=== PATIENT | male | born 1950 | race Caucasian/White ===

== ENCOUNTER 2020-07-22 20:37 | Inpatient (IN) | payer OTHER ==
[2020-07-22] MEDS ORDERED: Meropenem 1000 MG/VIAL IV SCH (21:00)
[2020-07-22 21:33] VITALS: BMI 25.2
[2020-07-22] MEDS ORDERED: Meropenem 1 GM/100 ML BAG ONE (22:29)
[2020-07-22 22:39] LABS: Absolute Lymphocytes (CBC) 1.7 K/uL (0.7-4.9); Basophils % 0.2 % (0-1.3); Hematocrit 44.6 % (39.6-49.0); Lymphocytes % 6.7 % (15.3-44.8); MPV 8.9 fL (7.6-11.3); RBC Red Blood Cell Count 5.17 M/uL (4.33-5.43)
[2020-07-22 22:41] LABS: Magnesium 2.7 mg/dL (1.8-2.4)
[2020-07-23 00:15] LABS: Urine Appearance TURBID; Urine Bilirubin NEGATIVE (NEG); Urine Blood 2+ (NEG); Urine Color RED; Urine Glucose NEGATIVE (NEG); Urine Protein 3+ (NEG); Urine Urobilinogen 0.2 mg/dL (0.2-1.0)
[2020-07-23 00:34] LABS: Blood Morphology Comment NOT SEEN (NOT SEEN); Platelet Estimate ADEQ
[2020-07-23 01:06] LABS: Urine Bacteria >50 /HPF (NONE SEEN); Urine Triple Phosphate Crystal FEW (NONE SEEN)
[2020-07-23] MEDS ORDERED: NA CHLORIDE 0.9% 1,000 ML IV SCH (08:00)
[2020-07-23] MEDS ORDERED: INFLUENZA VACCINE (for 3y+) 0.5 ML DOSE IMVAC ONE (08:00)
[2020-07-23] MEDS ORDERED: PNEUMOCOCCAL VACCINE 0.5 ML IMVAC ONE (08:00)
[2020-07-23] MEDS: FOLIC ACID 0.4 MG PO SCH (09:00)
[2020-07-23] MEDS ORDERED: AMLODIPINE 2.5 MG TAB PO SCH (09:00)
[2020-07-23] MEDS: SAW PALMETTO 450 MG PO SCH (09:00)
[2020-07-23] MEDS: GABAPENTIN 100 MG CAP PO SCH ×2 (09:25→21:24)
[2020-07-23] MEDS: ZINC SULFATE 220 MG CAP PO SCH (09:26)
[2020-07-23] MEDS: VITAMIN D 1000 UNIT TAB PO SCH (09:26)
[2020-07-23] MEDS: ASCORBIC ACID 500 MG TABLET PO SCH (09:26)
[2020-07-23] MEDS: ENOXAPARIN 40 MG/0.4 ML SQ SCH (09:26)
[2020-07-23] MEDS: ASPIRIN 81 MG CHEWABLE TABLET PO SCH (09:26)
[2020-07-23] MEDS: SERTRALINE HCL 100 MG TAB PO SCH (09:26)
[2020-07-23] MEDS: Meropenem 1,000 MG in NA CHLORIDE 0.9% 100 ML IV SCH ×2 (09:27→21:25)
--- NOTE | 2020-07-23 09:27 | RAD REPORT ---
EXAM DESCRIPTION: US - Renal Ultrasound-Complete - 07/23/2020 9:01 am CLINICAL HISTORY: Abdominal pain/urinary tract infection COMPARISON: None. FINDINGS: The right kidney measures 9 cm with a normal echotexture. Extrarenal pelvis The left kidney measures 9 cm with a normal echotexture. A 2.9 centimeter cyst Hydronephrosis is not seen. IMPRESSION: 2.9 centimeter left renal cyst
--- NOTE | 2020-07-23 09:30 | RAD REPORT ---
EXAM DESCRIPTION: US - Urinary Bladder - 07/23/2020 9:01 am CLINICAL HISTORY: R10.84 abdominal pain FINDINGS: 2.8 centimeter soft tissue structure base of the bladder. No additional significant abnormality seen IMPRESSION: 2.8 centimeter soft tissue structure base of the bladder. This may represent an intrinsi c bladder mass, hematoma or prostatic hypertrophy. It is recommended that patient have a CT scan of t he pelvis for further evaluation
[2020-07-23] MEDS: NA CHLORIDE 0.9% 1,000 ML IV SCH ×2 (10:30→21:25)
--- NOTE | 2020-07-23 12:46 | HP ---
Date of Admission: 07/23/2020 Chief Complaint: Urinary tract infection. History Of Present Illness: This is a 70-year-old pleasant male patient who has history of recurrent urinary tract infection for a long time. Had his routine blood work done and at that time, he also requested urine test to be done as he was having some signs, symptoms of urinary tract infection with some burning sensation on urination and this was last week. All this outpatient testing was done and he was started on antibiotic, nitrofurantoin over the weekend. When I talked to him yesterday, he reported that he was feeling better for first day or 2 days, but after that, he started to feel worse. Now, he is feeling very tired, does not have good appetite, has generalized body ache and has trouble voiding along with some burning sensation on urination. With all these symptoms, he was advised to get admitted to the hospital. His outpatient blood work that was done few days ago had shown normal WBC count, normal creatinine. His CBC chemistry was unremarkable except his urinalysis was abnormal and consistent with urinary tract infection and urine culture had grown E coli which was ESBL and it was sensitive to nitrofurantoin, but considering his worsening symptoms, now he is admitted to the hospital. The patient will need IV antibiotics. All these details were discussed with him on the phone last night and arrangements were made for him to be admitted. This morning, I saw him. He appeared weak and tired, and some altered mental status, had his eyes closed. He opened his eyes, recognized me and does answer simple questions, does follow simple commands. Allergies: NO KNOWN ALLERGIES. Medications: At home, he takes atorvastatin 10 mg daily in the evening; amlodipine 2.5 mg daily; aspirin 81 mg daily; gabapentin 100 mg, takes 2 capsules 2 times a day; lisinopril/HCTZ 12.5, takes 1 tablet 2 times a day if systolic blood pressure is higher than 140 and sertraline 100 mg daily. Review of Systems: Genitourinary: As mentioned above. Constitutional: As mentioned above. All other systems reviewed and negative. Past Medical History: Significant for impaired fasting glucose, COPD, hypertension, hyperlipidemia, benign prostatic hypertrophy, osteoarthritis, depression, and inguinal hernia. Past Surgical History: Significant for arthroscopic knee surgery. Family History: Significant for father had COPD, coronary artery disease, [place]. Mother had ovarian cancer. Social History: Significant for smoking. Use of alcohol occasional. Physical Examination: Vital signs: This morning, temperature 97.3, pulse 101, respiratory rate 18, blood pressure 123/66, oxygen saturation 95%. Height 5 feet 9 inches, weight 171 pounds. General: The patient appears weaker than normal. Sleeping, easily arousable, not in any distress, but appears to have altered mental status. HEENT: Head atraumatic, normocephalic. Conjunctivae nonerythematous. Sclerae white. Mouth, no thrush or edema noted. Ears/Nose, no mass, lesion, discharge noted. Neck: Supple. No JVD, lymph nodes, bruit, thyromegaly noted. Lungs: Bilateral good equal air entry. Clear to auscultation. No rhonchi. No rales. Heart: Normal heart sounds, no murmur or gallop. Abdomen: Minimal right-sided abdominal tenderness. No rebound tenderness. Bowel sounds normoactive. No hepatosplenomegaly. No bruit. No distention. Extremities: No leg edema. No calf tenderness. Skin: No rash, ulcer, cellulitis. Lymphatics: No lymph node enlargement in neck, supraclavicular, infraclavicular region. Neuro: No focal neurological deficit. Chest: Unremarkable. External Genitalia: Shows very large inguinal hernia on the left side and due to this large hernia, we are not able to see his penile shaft and all we see is the prepucial skin and when I was in the room with the patient, first time, he wanted to get up and urinate, so the patient required assistance to get out of bed and stand up. He was not strong enough to stand on his own or walk to the bathroom and nurse and myself, we assisted him to use bedside urinal and at that time, we noted that he had very small amount of urine that he urinated, probably between 10-20 cc and it was hemorrhagic looking and had some purulent discharge at prepucial skin. The patient was assisted to get back in the bed after that. Rectal: Deferred. Laboratory Data: White count last night was 25.9, hemoglobin 14.6, platelets 375. He had 8 bands. Sodium 134, potassium 5, chloride 102, bicarb 20, BUN 57, creatinine 1.36, glucose 139, magnesium 2.7. Urinalysis showed 3+ esterase, wbc's TNTC, bacteria more than 50, rbc's 10-20. Ultrasound of the kidney and bladder done today. Kidney ultrasound, unremarkable. No hydronephrosis. A 2.3 cm left renal cyst and bladder ultrasound showed a small density in the base of the bladder which could be either bladder mass or due to enlarged prostate or blood in the bladder and we will do CAT scan tomorrow for further evaluation. Impression: 1. Acute pyelonephritis. 2. Volume depletion. 3. Acute kidney injury. 4. Toxic encephalopathy. 5. Benign prostatic hypertrophy with urinary retention. 6. Hypertension. 7. Hyperlipidemia. 8. Chronic obstructive pulmonary disease. 9. Impaired fasting glucose. 10. Inguinal hernia. 11. Osteoarthritis, multiple sites. 12. Depression. Plan: Admit the patient to hospital for further evaluation and management of this problem. The patient is appropriate for inpatient and is expected to spend 2 midnights in the hospital. We will continue IV meropenem. We will also continue IV fluid which was started and home medications will be continued per order. DVT prophylaxis will be given per order using Lovenox. The patient's bladder scan done today shows 479 cc of urine, so he is unfortunately retaining significant amount of urine and we will go ahead and place a Smith catheter and I did inform the patient prior to doing bladder scan that we may have to place a catheter and he understood and was agreeable to do so if necessary. Fall precaution was ordered. We will repeat blood work tomorrow and hopefully by tomorrow, we should see some improvement in his overall clinical condition and we will order CT scan after we look at his renal function tomorrow. Blood culture was ordered. We will follow up on that. Details were discussed with the patient's daughter. LEAH/MODL Voice ID: [id number]
[2020-07-23 14:46] LABS: Potassium 5.4 mmol/L (3.5-5.1)
[2020-07-23 14:47] LABS: Basophils % 0.2 % (0-1.3); Hematocrit 42.6 % (39.6-49.0); Lymphocytes % 3.2 % (15.3-44.8); MPV 8.9 fL (7.6-11.3); RBC Red Blood Cell Count 4.93 M/uL (4.33-5.43)
[2020-07-23] MEDS ORDERED: NA CHLORIDE 0.9% 500 ML IV ONE ×2 (15:20→17:39)
[2020-07-23] MEDS: ALBUTEROL 2.5 MG/3 ML NEB SOL NEB SCH ×2 (15:23→19:35)
[2020-07-23] MEDS ORDERED: SODIUM BICARB 50 MEQ/50ML VIAL IV ONE (16:00)
--- NOTE | 2020-07-23 16:45 | RAD REPORT ---
EXAM DESCRIPTION: RAD - Chest Single View - 07/23/2020 4:31 pm CLINICAL HISTORY: COPD Chest pain. COMPARISON: Chest Pa And Lat (2 Views) dated 11/28/2016; Chest Pa And Lat (2 Views) dated 11/27/2016; Ch est Single View dated 11/26/2016; Urinary Bladder dated 07/23/2020 FINDINGS: Portable technique limits examination quality. The lungs are mildly emphysematous but grossly clear. The heart is normal in size. No displaced fract ures. IMPRESSION: Mild COPD.
[2020-07-23] MEDS ORDERED: Levofloxacin 250mg IV 250 MG/50 ML BAG IV SCH (17:00)
--- NOTE | 2020-07-23 18:25 | RAD REPORT ---
EXAM DESCRIPTION: CT - Abdomen Pelvis Wo Contrast - 07/23/2020 6:16 pm CLINICAL HISTORY: Abdominal pain. Inguinal hernia COMPARISON: No comparisons TECHNIQUE: CT imaging of the abdomen and pelvis was performed without contrast. Solid organ and vasc ular assessment is limited due to lack of IV contrast. All CT scans are performed using dose optimization technique as appropriate and may include automated exposure control or mA/KV adjustment according to patient size. FINDINGS: The lower lung correa are clear. The liver, spleen, pancreas, adrenal glands are within normal limits for a limited non-contrast exami nation.The left kidney appears normal without hydronephrosis. Mild right-sided hydronephrosis is present. 12 mm exophytic cyst emanates from the lateral cortex of right kidney. No bowel obstruction, free air, free fluid or abscess. The appendix is normal. There is very severe thickening of the urinary bladder wall with moderate surrounding inflammation. S everal small bladder stones are present as well, largest measuring 10 mm. Extremely large left fat containing inguinal hernias present extending into the scrotum. Small right inguinal hernia also containing seen. IMPRESSION: Quite severe wall thickening and surrounding inflammation of the urinary bladder with se veral bladder stones present. Severe infection would be the most likely etiology for these findings. Extremely large fat containing left inguinal hernia extending into the scrotum. Small right inguinal hernia containing fat as well. Mild right hydronephrosis. A limited non-contrast examination was performed as detailed.
[2020-07-23 19:45] LABS: Blood Morphology Comment NOT SEEN (NOT SEEN); Platelet Estimate ADEQ; Platelets, Giant OCC
[2020-07-23 20:30] LABS: Absolute Lymphocytes (CBC) 1.9 K/uL (0.7-4.9); Basophils % 0.2 % (0-1.3); Hematocrit 38.3 % (39.6-49.0); Lymphocytes % 7.8 % (15.3-44.8); MPV 8.7 fL (7.6-11.3); RBC Red Blood Cell Count 4.43 M/uL (4.33-5.43)
[2020-07-23 20:35] LABS: Potassium 4.5 mmol/L (3.5-5.1)
[2020-07-23] MEDS ORDERED: METOPROLOL TAR 25 MG TAB PO SCH (21:00)
--- NOTE | 2020-07-23 21:02 | CON ---
Reason For Consultation: Inability to pass a Smith catheter and urinary retention suspected. History Of Present Illness: Mr. Everett presented and was admitted yesterday with signs of suspected se sonia infection versus sepsis. While his lactic acid level was not markedly elevated, the patient has had some lethargy and potential altered mental status associated. He was managed with relatively ag gressive fluid resuscitation yet his intake and his outputs were markedly disparate. As a result, th ere was a recommendation for a urethral Smith catheter to be placed and nursing was unable to pass th e catheter successfully. They noted market enlargement of his scrotum obscuring visualization of the glans along with some pustular discharge around the retracted glans. As a result, Urology was consu lted in a stat fashion and I presented to evaluate the patient. On examination, the patient was lyin g on his side and is significantly lethargic, but arousable with significant stimulation. He was lulu ewhat cooperative, but unable to maintain that state. While his abdomen was soft and he expressed no signs of tenderness, he did have a large left inguinal mass extending into the scrotum causing significant scrotal swelling with some mild duskiness presen t anteriorly and over the right hemiscrotum. The phallus was retracted within the significantly dilated scrotum, but with efforts to manipulate th e scrotum, the glans penis was visualizable. Smith catheter placement procedure note followed by need for urethral dilation. Procedure Note: He was on meropenem 1 g as treatment for a known infection with an ESBL, E. coli fro m prehospitalization urine cultures taken by his primary care physician, Dr. Huang. I thus was able to prep the glans penis and surrounding genitalia with Betadine and drape it accordin gly in standard fashion. Attempts to pass both an 18-Malian coude tipped catheter as well as a subse quent 14-Malian catheter and then a 10-Malian catheter were thwarted by the presence of a significant meatal stenosis. As a result, I employed sequential S dilators to dilate his meatus and fossa navic ularis from 8-Malian to 20-Malian with relative ease. Once this was completed, I was then able to pa ss an 18-Malian coude tip catheter via the urethra and into his bladder with ease. There was then pr ompt efflux of over 1200 cc of markedly cloudy and foul smelling urine, which had terminal gross raysa turia noted within. The urine was essentially pustular in appearance. It had an odor of fecal matte r. Because of the presence of the inguinal hernia, I recommended a CT scan of the abdomen and pelvis to rule out strangulation and incarceration of the bowel and I spoke with Dr. Huang about the circumstanc e. He informed me that the inguinal hernia was a long-standing phenomenon for years that the patient was aware of. He had only met the patient recently and was only recently made aware of the inguinal hernia. He did not think the inguinal hernia was an acute reason for his decompensation rather simp ly. The foul-smelling and grossly infected urine previously known to grow ESBL, E. coli. A 70-year-old gentleman with uncertain significant past medical history and a large fat containing le ft inguinal hernia presenting with signs of suspected sepsis due to an ESBL, E. coli urinary tract in fection with large volume, greater than 1200 cc, urinary retention, associated gross hematuria, and p otential for colovesical fistula due to coliform bacteria found in the urine and air within the [facility] er. I reviewed the CT imaging directly as well as the report. There is evidence of severe thickening of the urinary bladder with surrounding inflammation, which is indicative of severe cystitis. There wer e also several bladder stones observed on the CT with the largest measuring approximately 10 mm. The re was mild right-sided hydronephrosis, which is likely secondary to reflux due to the large volume o f urinary retention. There was a degree of air in the bladder, which could have been secondary to th e catheterization of it. I recommended continued treatment as is being performed with aggressive antimicrobial therapy. Catheterized urine culture was sent since the prior culture likely would contain urogenital briana as he would have been voiding via the surrounding penile shaft skin versus foreskin due to the massive s crotum hernia. I recommended followup in the Urology Clinic for evaluation and management of his severe meatal steno sis as well as cystoscopic evaluation to assess the anatomy of any obstruction beyond that as well as to visualize the bladder, assess for any fistula, to determine the necessary management steps for th e bladder calculus, and hopefully prevent future complicated UTI. The catheter should remain in place at least 10-14 days prior to any subsequent urologic evaluation a s detailed above. There would be a benefit to considering Flomax 0.4 mg daily. Preemptively, if the patient can tolera te any potential mild hypotension due to the medication, to treat any potential obstruction due to BP H. WR/MODL Voice ID: [id number] Report ID: [id number]
[2020-07-23] MEDS: ATORVASTATIN 10 MG TAB PO SCH (21:25)
[2020-07-24] MEDS: ALBUTEROL 2.5 MG/3 ML NEB SOL NEB SCH ×4 (02:50→20:00)
[2020-07-24 05:56] LABS: Absolute Lymphocytes (CBC) 1.8 K/uL (0.7-4.9); Basophils % 0.1 % (0-1.3); Hematocrit 37.3 % (39.6-49.0); Lymphocytes % 9.4 % (15.3-44.8); MPV 8.8 fL (7.6-11.3); RBC Red Blood Cell Count 4.26 M/uL (4.33-5.43)
[2020-07-24 06:00] LABS: Albumin 2.2 g/dL (3.4-5.0); Bilirubin Total 0.4 mg/dL (0.2-1.0); Magnesium 2.7 mg/dL (1.8-2.4); Potassium 4.3 mmol/L (3.5-5.1); Protein, Total 5.9 g/dL (6.4-8.2)
[2020-07-24] MEDS: NA CHLORIDE 0.9% 1,000 ML IV SCH ×3 (08:58→22:04)
[2020-07-24] MEDS: FOLIC ACID 0.4 MG PO SCH (09:00)
[2020-07-24] MEDS: SAW PALMETTO 450 MG PO SCH (09:00)
[2020-07-24] MEDS: GABAPENTIN 100 MG CAP PO SCH ×2 (09:01→22:01)
[2020-07-24] MEDS: SERTRALINE HCL 100 MG TAB PO SCH (09:01)
[2020-07-24] MEDS: ENOXAPARIN 40 MG/0.4 ML SQ SCH (09:01)
[2020-07-24] MEDS: ASPIRIN 81 MG CHEWABLE TABLET PO SCH (09:01)
[2020-07-24] MEDS: ASCORBIC ACID 500 MG TABLET PO SCH (09:01)
[2020-07-24] MEDS: VITAMIN D 1000 UNIT TAB PO SCH (09:01)
[2020-07-24] MEDS: ZINC SULFATE 220 MG CAP PO SCH (09:01)
[2020-07-24] MEDS: Meropenem 1,000 MG in NA CHLORIDE 0.9% 100 ML IV SCH ×2 (09:18→22:01)
--- NOTE | 2020-07-24 11:33 | PN ---
Date of Progress Note: 07/24/2020 Subjective: The patient was seen this morning for followup. Overall, he was significantly better compared to yesterday. Awake, alert, not in any distress. Slept well last night and feels much better today compared to yesterday. Objective: HEENT: Unremarkable. Lungs: Clear to auscultation. Heart: Sounds normal. Abdomen: Soft. Bowel sounds normal. No guarding, rigidity, tenderness, or distention. Extremities: No leg edema. The patient has a Smith catheter present, which is draining urine, which is grossly hemorrhagic. Laboratory Data: White count 19.6, hemoglobin 11.9, platelets 275. Sodium 142, potassium 4.3, chloride 110, bicarb 22, BUN 48, creatinine 0.90, glucose 87. Liver function tests unremarkable. Procalcitonin is 0.14. Cultures pending. CAT scan of abdomen and pelvis done last night without contrast shows large fat containing inguinal hernia. No other acute findings pertaining to that. Impression: 1. Sepsis. 2. Acute pyelonephritis. 3. Urethral stricture. 4. Acute kidney failure, improved. 5. Hypertension. 6. Benign prostatic hypertrophy. Plan: We will go ahead and continue current medications. Continue current antibiotics, which are meropenem and Levaquin. Follow up on culture results. The patient still does not have a PICC line. Once he has a PICC line, then we will be able to send him home on IV antibiotics. I have discussed details with him and his son who was at bedside. Dr. Orozco' intervention yesterday is greatly appreciated. Now, the patient has a Smith catheter and Dr. Orozco wants him to keep Smith catheter for 10 to 14 days. Upon discharge from the hospital, we will have the patient follow up with him and then he will decide at what point to remove Smith catheter. The patient may need a cystoscopy also, which obviously Dr. Orozco will handle it on outpatient basis. Today, we will continue IV fluid, monitor intake and output, follow up on culture results and after the PICC line is in place, we will have our Social Service to help us make arrangements for home IV antibiotics. Details and plan of treatment were discussed with the patient. We will continue Lovenox for current DVT prophylaxis. LEAH/MODL Voice ID: [id number] Report ID: [id number] MTDD
[2020-07-24] MEDS: Levofloxacin500mg IV 500 MG/100 ML BAG IV SCH (16:41)
[2020-07-24] MEDS ORDERED: Levofloxacin500mg IV 500 MG/100 ML BAG IV SCH (17:00)
[2020-07-24] MEDS: ATORVASTATIN 10 MG TAB PO SCH (22:01)
[2020-07-25] MEDS: NA CHLORIDE 0.9% 1,000 ML IV SCH (01:29)
[2020-07-25] MEDS: ALBUTEROL 2.5 MG/3 ML NEB SOL NEB SCH ×4 (02:00→20:40)
[2020-07-25] MEDS: ACETAMINOPHEN 500 MG TAB PO PRN (03:04)
[2020-07-25 06:03] LABS: Absolute Lymphocytes (CBC) 2.1 K/uL (0.7-4.9); Basophils % 0.2 % (0-1.3); Hematocrit 35.2 % (39.6-49.0); Lymphocytes % 18.8 % (15.3-44.8); MPV 8.7 fL (7.6-11.3); RBC Red Blood Cell Count 4.06 M/uL (4.33-5.43)
[2020-07-25 06:20] LABS: BUN Blood Urea Nitrogen 25 mg/dL (7-18); Bicarbonate 27 mmol/L (21-32); Glucose Level 98 mg/dL (74-106); Magnesium 2.4 mg/dL (1.8-2.4); Potassium 4.3 mmol/L (3.5-5.1); Sodium Level 139 mmol/L (136-145)
--- NOTE | 2020-07-25 08:30 | PN ---
Date of Progress Note: 07/25/2020 Subjective: Patient was seen this morning for followup. He was lying in bed, not in distress. Awak e, alert, oriented x3. Still has generalized weakness, but significantly better than before. He was able to sit at the bedside from supine position with some difficulty, but he was able to sit on his own without any assistance. He has a Smith catheter in place. Still has gross hematuria in the Fole y catheter bag. Intake and output records reviewed. The patient has adequate amount of urine output in last 24 hours. He remains afebrile and hemodynamically stable. Objective: HEENT: Unremarkable. LUNGS: Clear to auscultation. No wheezing. No rales. HEART: Sounds normal. ABDOMEN: Soft. Bowel sounds normal. No guarding, rigidity, tenderness, or distention. EXTREMITIES: No leg edema. Laboratory Data: White count 11, hemoglobin 11.4, platelets 254. Sodium 139, potassium 4.3, chlorid e 107, bicarb 27, BUN 25, creatinine 0.70, glucose 98, magnesium 2.4. Impression: 1.Sepsis. 2.Acute pyelonephritis, organism Escherichia coli, extended spectrum beta-lactamase. 3.Acute kidney injury, resolved. 4.Anemia, unspecified. 5.Hypertension. 6.Inguinal hernia. Plan: Patient's blood culture remains negative. Urine culture which was done during this admission is growing gram-negative rods, definite identification and sensitivity result are pending, but outpat ient urine culture prior to this admission had grown E coli and it was ESBL. The patient is on appro priate IV antibiotic, which is meropenem. We will continue that. We will also continue Levaquin for time being. PICC line was placed last night, and we will go ahead and request consultation from soc ial service to start assisting the patient with home IV antibiotic therapy using meropenem 1 g every 12 hours upon discharge, and the patient can be discharged soon as antibiotic arrangements get comple trae. Nursing staff to start teaching the patient Smith catheter care as he is expected to go home wi th a Smith catheter. Details and plan of treatment discussed with the patient. LEAH/MODL Voice ID: [id number] Report ID: [id number]
[2020-07-25] MEDS: SAW PALMETTO 450 MG PO SCH (09:00)
[2020-07-25] MEDS: FOLIC ACID 0.4 MG PO SCH (09:00)
[2020-07-25] MEDS: Meropenem 1,000 MG in NA CHLORIDE 0.9% 100 ML IV SCH ×2 (09:15→21:04)
[2020-07-25] MEDS: ASPIRIN 81 MG CHEWABLE TABLET PO SCH (09:16)
[2020-07-25] MEDS: GABAPENTIN 100 MG CAP PO SCH ×2 (09:16→21:04)
[2020-07-25] MEDS: ENOXAPARIN 40 MG/0.4 ML SQ SCH (09:16)
[2020-07-25] MEDS: SERTRALINE HCL 100 MG TAB PO SCH (09:16)
[2020-07-25] MEDS: VITAMIN D 1000 UNIT TAB PO SCH (09:16)
[2020-07-25] MEDS: ZINC SULFATE 220 MG CAP PO SCH (09:17)
[2020-07-25] MEDS: ASCORBIC ACID 500 MG TABLET PO SCH (09:17)
--- NOTE | 2020-07-25 15:03 | RAD REPORT ---
EXAM DESCRIPTION: RAD - Chest Single View - 07/24/2020 11:58 pm CLINICAL HISTORY: PICC placement COMPARISON: None. FINDINGS: Single frontal view of the chest. Tubes and lines: Right arm PICC with tip in the SVC. Leads overlie the chest. Cardiomediastinal silhouette: Atherosclerotic calcification of the thoracic aorta. Heart is not enlar ged. Lungs: No consolidation, pneumothorax, or pleural effusion. Bones: Degenerative change of the spine and shoulders. Upper abdomen: Stable. IMPRESSION: 1. Stable appearance of the chest. Electronically signed by: Royer Wilder 07/25/2020 12:13 AM COAGULATOR Due to temporary technical issues with the PACS/Fluency reporting system, reports are being signed by the in house radiologists without review as a courtesy to insure prompt reporting. The interpreting radiologist is fully responsible for the content of the report
[2020-07-25] MEDS: Levofloxacin500mg IV 500 MG/100 ML BAG IV SCH (16:55)
[2020-07-25] MEDS: ATORVASTATIN 10 MG TAB PO SCH (21:04)
[2020-07-26] MEDS: ALBUTEROL 2.5 MG/3 ML NEB SOL NEB SCH ×4 (01:04→19:40)
[2020-07-26] MEDS: ASPIRIN 81 MG CHEWABLE TABLET PO SCH (08:50)
[2020-07-26] MEDS: VITAMIN D 1000 UNIT TAB PO SCH (08:50)
[2020-07-26] MEDS: ASCORBIC ACID 500 MG TABLET PO SCH (08:50)
[2020-07-26] MEDS: ENOXAPARIN 40 MG/0.4 ML SQ SCH (08:50)
[2020-07-26] MEDS: GABAPENTIN 100 MG CAP PO SCH ×2 (08:51→20:45)
[2020-07-26] MEDS: SERTRALINE HCL 100 MG TAB PO SCH (08:51)
[2020-07-26] MEDS: SAW PALMETTO 450 MG PO SCH (08:51)
[2020-07-26] MEDS: Meropenem 1,000 MG in NA CHLORIDE 0.9% 100 ML IV SCH ×2 (08:51→20:44)
[2020-07-26] MEDS: ZINC SULFATE 220 MG CAP PO SCH (08:51)
[2020-07-26] MEDS: FOLIC ACID 0.4 MG PO SCH (08:51)
--- NOTE | 2020-07-26 13:22 | PN ---
Date of Progress Note: 07/26/2020 Subjective: The patient was seen this morning for followup. No new complaints or problems reported by patient. Lying in bed, not in distress. Denies any complaints. He started ambulating well with physical therapy and able to ambulate on his own also without any difficulty. Objective: Vital Signs: Reviewed. HEENT: Unremarkable. Lungs: Clear to auscultation. Heart: Sounds normal. Abdomen: Soft. Bowel sounds normal. No guarding, rigidity, tenderness, or distention. Extremities: No leg edema. : His Smith catheter present and draining urine that is looking hemorrhagic, but it is definitely much better today than last few days. Impression: 1.Acute pyelonephritis, organism Escherichia coli, extended spectrum beta-lactamases. 2.Acute kidney injury, resolved. 3.Benign prostatic hypertrophy with lower urinary tract symptoms. 4.Urethral stricture. 5.Hypertension. Plan: We will go ahead and continue current Smith catheter care. Continue current IV antibiotics. We will go ahead and repeat blood work tomorrow. Social Service to assist the patient with home IV a ntibiotic therapy to see if he qualifies for that. Meanwhile, we will continue current medications in the hospital. Details and plan of treatment discussed with the patient. LEAH/MODL Voice ID: [id number] Report ID: [id number]
[2020-07-26] MEDS: Levofloxacin500mg IV 500 MG/100 ML BAG IV SCH (16:10)
[2020-07-26] MEDS: ATORVASTATIN 10 MG TAB PO SCH (20:45)
[2020-07-27] MEDS: ALBUTEROL 2.5 MG/3 ML NEB SOL NEB SCH ×4 (02:20→20:06)
[2020-07-27] MEDS: SAW PALMETTO 450 MG PO SCH (09:00)
[2020-07-27] MEDS: FOLIC ACID 0.4 MG PO SCH (09:00)
[2020-07-27] MEDS: Meropenem 1,000 MG in NA CHLORIDE 0.9% 100 ML IV SCH ×2 (09:42→20:55)
[2020-07-27] MEDS: ENOXAPARIN 40 MG/0.4 ML SQ SCH (09:42)
[2020-07-27] MEDS: ASCORBIC ACID 500 MG TABLET PO SCH (09:43)
[2020-07-27] MEDS: ZINC SULFATE 220 MG CAP PO SCH (09:43)
[2020-07-27] MEDS: SERTRALINE HCL 100 MG TAB PO SCH (09:43)
[2020-07-27] MEDS: GABAPENTIN 100 MG CAP PO SCH ×2 (09:43→20:56)
[2020-07-27] MEDS: ASPIRIN 81 MG CHEWABLE TABLET PO SCH (09:43)
[2020-07-27] MEDS: VITAMIN D 1000 UNIT TAB PO SCH (09:43)
[2020-07-27] MEDS: AMLODIPINE 2.5 MG TAB PO SCH (09:52)
--- NOTE | 2020-07-27 11:57 | PN ---
Date of Progress Note: 07/27/2020 Subjective: The patient was seen this morning for followup. No new complaints or problems reported by the patient. He was sitting in chair. Denied any complaints. Ambulating very well. Denies any weakness. No abdominal pain, nausea, vomiting. Last bowel movement was day before yesterday. The p evin has a PICC line in place in right arm. Objective: Vital Signs: Reviewed. HEENT: Unremarkable. Lungs: Clear to auscultation. Heart: Sounds normal. Abdomen: Soft. Bowel sounds normal. No guarding, rigidity, tenderness, distention. Extremities: No leg edema. Impression: 1.Acute pyelonephritis, organism E. coli, ESBL. 2.Acute kidney injury, resolved. 3.Hypertension. 4.Urethral stricture. 5.Benign prostatic hypertrophy with lower urinary tract symptoms. 6.Bilateral inguinal hernia. Plan: We will go ahead and continue current antibiotic, which is meropenem. We will discontinue Lev aquin. Social Service to assist the patient tomorrow with home IV antibiotic arrangements and once a rrangements completed, then we will able to discharge him to go home. Details and plan of treatment discussed with the patient. As of today, we will restart his antihypertensive medication which is am lodipine 2.5 mg p.o. daily. Continue current DVT prophylaxis. The patient has a Smith catheter and his gross hematuria problem has resolved now. His urine is slightly dark yellow color, but there is no more gross hematuria noted in the Smith catheter. LEAH/MODL Voice ID: [id number] Report ID: [id number]
[2020-07-27] MEDS: ATORVASTATIN 10 MG TAB PO SCH (20:56)
[2020-07-28] MEDS: ALBUTEROL 2.5 MG/3 ML NEB SOL NEB SCH ×4 (02:05→20:00)
[2020-07-28 04:44] LABS: Absolute Lymphocytes (CBC) 2.3 K/uL (0.7-4.9); Basophils % 0.6 % (0-1.3); Hematocrit 34.6 % (39.6-49.0); Lymphocytes % 25.9 % (15.3-44.8); MPV 8.8 fL (7.6-11.3)
[2020-07-28 05:08] LABS: BUN Blood Urea Nitrogen 8 mg/dL (7-18); Bicarbonate 35 mmol/L (21-32); Glucose Level 99 mg/dL (74-106); Magnesium 2.3 mg/dL (1.8-2.4); Sodium Level 139 mmol/L (136-145)
[2020-07-28] MEDS: SAW PALMETTO 450 MG PO SCH (09:00)
[2020-07-28] MEDS: FOLIC ACID 0.4 MG PO SCH (09:00)
[2020-07-28] MEDS: Meropenem 1,000 MG in NA CHLORIDE 0.9% 100 ML IV SCH ×2 (09:52→21:03)
[2020-07-28] MEDS: ASPIRIN 81 MG CHEWABLE TABLET PO SCH (09:56)
[2020-07-28] MEDS: SERTRALINE HCL 100 MG TAB PO SCH (09:57)
[2020-07-28] MEDS: GABAPENTIN 100 MG CAP PO SCH ×2 (09:57→21:04)
[2020-07-28] MEDS: ENOXAPARIN 40 MG/0.4 ML SQ SCH (09:57)
[2020-07-28] MEDS: ASCORBIC ACID 500 MG TABLET PO SCH (09:58)
[2020-07-28] MEDS: AMLODIPINE 2.5 MG TAB PO SCH (09:58)
[2020-07-28] MEDS: ZINC SULFATE 220 MG CAP PO SCH (09:59)
[2020-07-28] MEDS: VITAMIN D 1000 UNIT TAB PO SCH (09:59)
[2020-07-28] MEDS: ATORVASTATIN 10 MG TAB PO SCH (21:04)
[2020-07-29] MEDS: ACETAMINOPHEN 500 MG TAB PO PRN (00:06)
[2020-07-29] MEDS: ALBUTEROL 2.5 MG/3 ML NEB SOL NEB SCH ×4 (02:00→19:20)
--- NOTE | 2020-07-29 06:56 | PN ---
Date of Progress Note: 07/28/2020 Subjective: Patient was seen this morning for followup. No new complaints or problems reported by gely cleary. Objective: General: Lying in bed, not in distress. Vital Signs: Reviewed. HEENT: Unremarkable. Lungs: Clear to auscultation. Heart: Sounds normal. Abdomen: Soft. Bowel sounds normal. No guarding, rigidity, tenderness, or distention. Extremities: No leg edema. The patient has a Smith catheter in place with urine that is back to [facility], clear yellow in color. Laboratory Data: White count 8.8, hemoglobin 11.5, platelets 260. Sodium 139, potassium 4, chloride 103, bicarb 35, BUN 8, creatinine 0.54, glucose 99. Impression: 1.Acute pyelonephritis. 2.Acute kidney failure. 3.Anemia. 4.Hypertension. 5.Urethral stricture. 6.Inguinal hernia. 7.Benign prostatic hypertrophy with lower urinary tract symptoms. Plan: We will go ahead and continue current medications. Continue current IV antibiotics. Social S ervice to assist the patient with home IV antibiotic arrangements. We will continue current antihypertensive medication and monitor bl ood pressure. LEAH/MODL Voice ID: [id number] Report ID: [id number]
[2020-07-29] MEDS: SAW PALMETTO 450 MG PO SCH (09:00)
[2020-07-29] MEDS: FOLIC ACID 0.4 MG PO SCH (09:00)
[2020-07-29] MEDS: VITAMIN D 1000 UNIT TAB PO SCH (10:24)
[2020-07-29] MEDS: GABAPENTIN 100 MG CAP PO SCH ×2 (10:25→20:25)
[2020-07-29] MEDS: ASPIRIN 81 MG CHEWABLE TABLET PO SCH (10:25)
[2020-07-29] MEDS: ASCORBIC ACID 500 MG TABLET PO SCH (10:25)
[2020-07-29] MEDS: ZINC SULFATE 220 MG CAP PO SCH (10:25)
[2020-07-29] MEDS: AMLODIPINE 2.5 MG TAB PO SCH (10:25)
[2020-07-29] MEDS: SERTRALINE HCL 100 MG TAB PO SCH (10:25)
[2020-07-29] MEDS: Meropenem 1,000 MG in NA CHLORIDE 0.9% 100 ML IV SCH ×2 (10:26→20:25)
[2020-07-29] MEDS: ENOXAPARIN 40 MG/0.4 ML SQ SCH (10:26)
[2020-07-29] MEDS: ATORVASTATIN 10 MG TAB PO SCH (20:25)
[2020-07-30] MEDS: ALBUTEROL 2.5 MG/3 ML NEB SOL NEB SCH ×2 (01:28→09:27)
--- NOTE | 2020-07-30 06:54 | PN ---
Date of Progress Note: 07/29/2020 Subjective: Patient was seen this morning for followup. Denied any complaints. Feeling fine. No w eakness. Ambulates well without any difficulty. His Smith catheter is in place. Has a clear yellow color urine now. Denies any abdominal pain, nausea, vomiting. Objective: Vital Signs: Reviewed. HEENT: Unremarkable. Lungs: Clear to auscultation. Heart: Sounds normal. Abdomen: Soft. Bowel sounds normal. No guarding, rigidity, tenderness, or distention. Extremities: No leg edema. Impression: 1.Acute pyelonephritis. 2.Acute kidney failure. 3.Hypertension. 4.Urethral stricture. 5.Benign prostatic hypertrophy with lower urinary tract symptoms. Plan: We will go ahead and continue current antibiotic, which is meropenem. Intelligence Operations Specialist trying to make arrangements for patient to go home with home IV antibiotic therapy. Soon as that arrangemen t gets completed. Patient is ready for discharge, which may happen tomorrow as I understand as per m y discussion with the nursing staff. LEAH/MODL Voice ID: [id number] Report ID: [id number]
[2020-07-30] MEDS: ENOXAPARIN 40 MG/0.4 ML SQ SCH (09:00)
[2020-07-30] MEDS: SAW PALMETTO 450 MG PO SCH (09:00)
[2020-07-30] MEDS: FOLIC ACID 0.4 MG PO SCH (09:00)
[2020-07-30] MEDS: AMLODIPINE 2.5 MG TAB PO SCH (10:01)
[2020-07-30] MEDS: ZINC SULFATE 220 MG CAP PO SCH (10:01)
[2020-07-30] MEDS: ASCORBIC ACID 500 MG TABLET PO SCH (10:01)
[2020-07-30] MEDS: Meropenem 1,000 MG in NA CHLORIDE 0.9% 100 ML IV SCH (10:01)
[2020-07-30] MEDS: VITAMIN D 1000 UNIT TAB PO SCH (10:01)
[2020-07-30] MEDS: ASPIRIN 81 MG CHEWABLE TABLET PO SCH (10:02)
[2020-07-30] MEDS: SERTRALINE HCL 100 MG TAB PO SCH (10:02)
[2020-07-30] MEDS: GABAPENTIN 100 MG CAP PO SCH (10:02)
[2020-07-30 10:26] VITALS: O2SAT 92
[2020-07-30 13:29] VITALS: BP 117/54; TEMP 97.4
--- NOTE | 2020-09-04 09:34 | DS ---
Date of Discharge: 07/30/2020 Disposition: Discharged to go home. Physical Examination: HEENT: Unremarkable. Lungs: Clear to auscultation. Heart: Sounds normal. Abdomen: Soft. Bowel sounds normal. No guarding, rigidity, tenderness, or distention. Extremities: No leg edema. Discharge Diagnoses: 1.Acute pyelonephritis. 2.Acute kidney failure. 3.Hypertension. 4.Urethral stricture. 5.Benign prostatic hypertrophy with lower urinary tract symptoms. 6.Anemia, unspecified. Hospital Course: This is a 70-year-old pleasant male patient who was admitted to the hospital with a cute pyelonephritis and acute kidney failure problem. The patient had volume depletion when he came in associated with toxic encephalopathy due to infection. Urine culture grew E coli which was ESBL. Please see dictated H and P for more information and details. After patient was evaluated and admit trae to the hospital, he was given IV fluid, IV antibiotics. Urology consultation was obtained from Asia Orozco and he was able to insert a Smtih catheter. The patient did have urethral stricture and r equired intervention by Dr. Orozco as nursing staff was not able to place the catheter. Subsequentl y, the patient started to have adequate urine output. He also has large inguinal hernia for which he has decided not to get any treatment so far and he has had this hernia for many years. His toxic en cephalopathy problem resolved along with his acute kidney injury and volume depletion problem resolve d. The patient did have sepsis due to this gram-negative infection. Blood culture did not grow any bacteria, but clinically he had all the parameters of sepsis. He was successfully treated and was di scharged final to go home. Laboratory Data: His last chemistry on 07/28/2020, sodium 139, potassium 4, chloride 103, bicarb 35, BUN 8, creatinine 0.54, glucose 99, and when he first came in, his BUN 57, creatinine 1.36. His hig hest creatinine was 1.78 on 07/23/2020. His potassium was 5.4 on that day and last potassium was nor mal at 4. His WBC count when he first came in 25.9, and on July 23, it was 32.5 which was high est WBC. Last WBC on 07/28/2020 was 8.8 with hemoglobin 11.5, platelets 266. His CAT scan of abdome n and pelvis from 07/23/2020 showed severe wall thickening and surrounding inflammation of urinary bl adder with several bladder stones present. Extremely large fat containing left inguinal hernia exten ding into scrotum. Small right inguinal hernia containing fat as well. Mild right-sided hydronephro sis. His renal ultrasound from 07/23/2020 showed 2.9 cm left renal cyst. Discharge Medications And Instructions: 1.Continue all prior home medications. 2.Home health agency nurse to assist the patient with IV antibiotic, which is meropenem 1000 mg IV e very 12 hours for 1 week. 3.Flush PICC line per protocol. 4.Change PICC line dressing per protocol. 5.Follow up at my office on 08/04/2020 for 08/05/2020, the patient to call office for appointment. 6.Follow up with Dr. Orozco in 1 to 2 weeks in Smith catheter care. The patient was discharged to go home with Smith catheter and Dr. Orozco will address further care for urethral stricture and sherman lizandro of Smith catheter on an elective outpatient basis. Final Diagnoses: 1.Sepsis. 2.Acute pyelonephritis, Escherichia coli, extended-spectrum beta-lactamase. 3.Acute kidney injury. 4.Volume depletion. 5.Hyperkalemia. 6.Anemia, unspecified. 7.Toxic encephalopathy. 8.Benign prostatic hypertrophy with lower urinary tract symptoms. 9.Hypertension. 10.Hyperlipidemia. 11.Chronic obstructive pulmonary disease. 12.Impaired fasting glucose. 13.Inguinal hernia. LEAH/MODL Voice ID: [id number] Report ID: [id number]
== END 2020-07-30 13:46 | disposition home health service (06) | DRG 871 ==
LOC: ERHOLD 20:37 → 2ND 21:16
PROVIDERS: ADMIT Internal Medicine; ATTEND Internal Medicine
DX: A41.9 Sepsis, unspecified organism (principal); G92 Toxic encephalopathy; N10 Acute pyelonephritis; Z16.12 Extended spectrum beta lactamase (ESBL) resistance; N17.9 Acute kidney failure, unspecified; J44.9 Chronic obstructive pulmonary disease, unspecified; I10 Essential (primary) hypertension; F32.9 Major depressive disorder, single episode, unspecified; D64.9 Anemia, unspecified; E78.5 Hyperlipidemia, unspecified; N35.919 Unspecified urethral stricture, male, unspecified site; N50.89 Other specified disorders of the male genital organs; K40.90 Unilateral inguinal hernia, without obstruction or gangrene, not specified as recurrent; E86.9 Volume depletion, unspecified; M19.90 Unspecified osteoarthritis, unspecified site; N40.1 Benign prostatic hyperplasia with lower urinary tract symptoms; B96.20 Unspecified Escherichia coli [E. coli] as the cause of diseases classified elsewhere; R33.8 Other retention of urine; R73.01 Impaired fasting glucose; Z79.899 Other long term (current) drug therapy; Z79.82 Long term (current) use of aspirin; Z20.822 Contact with and (suspected) exposure to COVID-19
CPT/HCPCS: 36415; 36569; 71045; 74176; 76770; 76857; 80048; 80053; 81001; 83605; 83735; 84145; 85025; 87040; 87077; 87086; 87088; 87186; 94640; 97161; J1650; J2185; J7030; J7040; U0002

== ENCOUNTER 2022-06-12 15:30 | Observation (INO) | payer OTHER ==
--- OUTSIDE RECORDS SUMMARY | 2022-06-12 15:35 | XMS REPORT | Continuity of Care Document ---
:1950 Author Organization [facility] t Address [address] [place] [address] [place] [id number] Care Team Providers Name Role Phone ESTEBAN Attending Clinician Unavailable ESTEBAN Admitting Clinician Unavailable Problems This patient has no known problems. Allergies, Adverse Reactions, Alerts This patient has no known allergies or adverse reactions. Medications This patient has no known medications. Procedures This patient has no known procedures. Encounters Start End Encounter Admission Attending Care Care Encounter Source Date/Time Date/Time Type Type Clinicians Facility Department ID 2022-02-02 2022-02-02 Outpatient MARQUISE CABRERA [id number] 10:04:00 10:04:00 HN [id number] [facility] Program Results This patient has no known results.
[2022-06-12] MEDS ORDERED: NA CHLORIDE 0.9% 1,000 ML ONE ×2 (16:22→17:53)
[2022-06-12 16:50] LABS: Absolute Lymphocytes (CBC) 1.4 K/uL (0.7-4.9); Lymphocytes % 11.2 % (15.3-44.8); MCV 87.9 fL (80-100); MPV 7.2 fL (7.6-11.3); RBC Red Blood Cell Count 4.33 M/uL (4.33-5.43)
[2022-06-12 16:57] LABS: Protime INR 1.08
[2022-06-12 17:10] LABS: Albumin 2.3 g/dL (3.4-5.0); Bilirubin Total 0.3 mg/dL (0.2-1.0); Protein, Total 7.3 g/dL (6.4-8.2); Troponin High Sensitivity 8.7 pg/mL (<58.9)
[2022-06-12 17:22] LABS: Potassium 5.5 mmol/L (3.5-5.1)
--- NOTE | 2022-06-12 17:22 | RAD REPORT ---
EXAM DESCRIPTION: Janis Single View06/12/2022 4:38 pm CLINICAL HISTORY: sob COMPARISON: 2019 FINDINGS: Hyperraerated lungs. The lungs appear clear of acute infiltrate. The heart is normal size IMPRESSION: No acute abnormalities displayed
[2022-06-12 17:26] LABS: SARS-COV-2 RT PCR NEGATIVE (NEGATIVE)
[2022-06-12] MEDS ORDERED: IPRATROPIUM BROM 0.5MG/2.5ML ONE (17:53)
[2022-06-12] MEDS ORDERED: ALBUTEROL 2.5 MG/3 ML NEB SOL ONE (17:53)
[2022-06-12 18:16] LABS: Urine Blood 2+ (Negative); Urine Glucose Negative (Negative); Urine Protein 2+ (Negative); Urine pH 7.5 (5.0-7.0)
[2022-06-12] MEDS ORDERED: CEFTRIAXONE 1000 MG/VIAL ONE (18:26)
--- NOTE | 2022-06-12 18:42 | ER ---
Nurse's Notes [facility] Name: Giuliano Everett Age: 72 yrs Sex: Male : 1950 Arrival Date: 06/12/2022 Time: 15:35 Bed 8 Private MD: Diagnosis: UTI/ Urinary tract infection, site not specified;Weakness Presentation: 06/12 15:37 Chief complaint: Recently completed Zithromax for strep and thrush, c/o worsening hb generalized weakness due to inability to eat or drink for over 1 week. Coronavirus screen: At this time, the client does not indicate any symptoms associated with coronavirus-19. Ebola Screen: No symptoms or risks identified at this time. Risk Assessment: Do you want to hurt yourself or someone else? Patient reports no desire to harm self or others. Onset of symptoms was May 2022. 15:37 Method Of Arrival: Wheelchair hb 15:37 Acuity: TR 3 hb 16:33 Initial Sepsis Screen: Does the patient meet any 2 criteria? No. Patient's initial mb9 sepsis screen is negative. Does the patient have a suspected source of infection? No. Patient's initial sepsis screen is negative. Triage Assessment: 16:33 General: Appears in no apparent distress. Behavior is calm, cooperative, appropriate mb9 for age. Historical: - Allergies: 15:40 No Known Allergies; hb - PMHx: 15:40 herniated discs; COPD; hb - Immunization history:: Adult Immunizations up to date. - Social history:: Smoking status: Patient denies any tobacco usage or history of. Screenin:33 Abuse screen: Denies threats or abuse. Nutritional screening: No deficits noted. mb9 Tuberculosis screening: No symptoms or risk factors identified. Fall Risk None identified. Assessment: 16:00 Pain: Denies pain. Neuro: Robertson Agitation-Sedation Scale (RASS): 0 - Alert and Calm mb9 Level of Consciousness is awake, alert, obeys commands, Oriented to person, place, time, situation, Appropriate for age Hand Iii Cutter are weak bilaterally Speech is normal. Cardiovascular: Heart tones S1 S2 present Rhythm is sinus tachycardia. Cardiovascular: Rhythm is sinus tachycardia. Respiratory: Reports shortness of breath Airway is patent Respiratory effort is even, unlabored, Respiratory pattern is regular, symmetrical, Breath sounds with wheezes bilaterally. GI: Abdomen is flat, Bowel sounds present X 4 quads. Abd is soft and non tender X 4 quads. Patient currently denies diarrhea, nausea, vomiting. : No signs and/or symptoms were reported regarding the genitourinary system. EENT: No signs and/or symptoms were reported regarding the EENT system. Derm: Skin is fragile, is thin, Skin is dry, Skin is normal, Skin temperature is cool. Musculoskeletal: Range of motion: intact in all extremities. 16:10 Reassessment: 1st set of blood cultures set. mb9 17:10 Reassessment: 2nd set of blood cultures sent. mb9 17:13 Reassessment: No changes from previously documented assessment. mb9 18:18 General: Appears in no apparent distress. comfortable, Behavior is calm, cooperative, mb9 appropriate for age. Pain: Denies pain. Neuro: Level of Consciousness is awake, alert, obeys commands, Oriented to person, place, time, situation, Appropriate for age. Cardiovascular: Rhythm is sinus tachycardia. Respiratory: Airway is patent Respiratory effort is even, unlabored, Respiratory pattern is regular, symmetrical. : Urine is cloudy. Derm: Skin is fragile, is thin, Skin is dry, Skin is normal, Skin temperature is cool. 18:38 GI: Reports hemorrhoids. mb9 19:00 Reassessment: Patient appears in no apparent distress at this time. Patient and/or jb4 family updated on plan of care and expected duration. Pain level reassessed. Patient is alert, oriented x 3, equal unlabored respirations, skin warm/dry/pink. 20:00 Reassessment: Patient appears in no apparent distress at this time. Patient and/or jb4 family updated on plan of care and expected duration. Pain level reassessed. Patient is alert, oriented x 3, equal unlabored respirations, skin warm/dry/pink. 20:39 Reassessment: attempted to call report, instructed to wait for call back. jb4 20:55 Reassessment: attempted to call report, instructed to wait for call back. jb4 21:15 Reassessment: Patient appears in no apparent distress at this time. Patient and/or jb4 family updated on plan of care and expected duration. Pain level reassessed. Patient is alert, oriented x 3, equal unlabored respirations, skin warm/dry/pink. Vital Signs: 15:37 BP 119 / 78; Pulse 113; Resp 20; Temp 98.6(TE); Pulse Ox 100% on R/A; Pain 8/10; hb 17:12 BP 148 / 89; Pulse 101; Resp 22; Pulse Ox 100% on R/A; mb9 18:19 BP 117 / 92; Pulse 110; Resp 18; Pulse Ox 100% on R/A; mb9 19:00 BP 111 / 75; Pulse 108; Resp 25; Pulse Ox 98% on R/A; jb4 20:00 BP 134 / 85; Pulse 103; Resp 24; Pulse Ox 95% on R/A; jb4 21:00 BP 116 / 83; Pulse 104; Resp 25; Pulse Ox 97% ; jb4 NIH Stroke Scale Scores: 15:40 NIHSS Score: 0 [facility] ED Course: 15:35 Patient arrived in ED. rg4 15:35 Tess Eric [facility] jh7 15:35 Parish Morales MD is Attending Physician. [facility] 15:40 Triage completed. hb 15:41 Arm band placed on. hb 15:41 Patient has correct armband on for positive identification. Placed in gown. Bed in low mb9 position. Call light in reach. Side rails up X 1. Client placed on continuous cardiac and pulse oximetry monitoring. NIBP monitoring applied. secured entrance monitor on. 15:44 Essie Cueto, RN is Primary Nurse. mb9 16:05 Inserted saline lock: 20 gauge in left forearm, using aseptic technique. Blood mb9 collected. 16:05 EKG done, by ED staff, reviewed by Tess SMITH. mb9 16:19 TSH Sent. mb9 16:19 COVID-19/FLU A+B Sent. mb9 16:19 Troponin High Sensitivity Sent. mb9 16:19 CBC with Diff Sent. mb9 16:19 CMP Sent. mb9 16:19 Lactate w/ 2H reflex if indic. Sent. mb9 16:19 Ptt, Activated Sent. mb9 16:19 Protime (+inr) Sent. mb9 16:40 Chest Single View XRAY In Process Unspecified. EDMS 18:17 Urine Culture Sent. mb9 18:17 Urine Microscopic Only Sent. mb9 18:32 Strep Sent. mb9 18:40 Bronson Jernigan is Hospitalizing Provider. jh7 18:43 Strep Sent. mb9 21:37 No provider procedures requiring assistance completed. Patient transferred, IV remains jb4 in place. Administered Medications: 16:20 Drug: NS 0.9% 1000 ml Route: IV; Rate: 1 bolus; Site: left forearm; mb9 18:44 Follow up: IV Status: Infusion continued mb9 18:44 Follow up: Response: No adverse reaction mb9 18:10 Drug: DuoNeb (albuterol 2.5 mg, ipratropium 0.5 mg) (3:1) (2.5 mg - 0.5 mg) 3 ml Route: mb9 Nebulizer; 18:43 Follow up: Response: No adverse reaction mb9 18:32 Drug: Rocephin (cefTRIAXone) 1 grams Route: IV; Rate: 1 calculated rate; Site: left mb9 forearm; 18:43 Follow up: Response: No adverse reaction; IV Status: IV converted to saline lock mb9 19:53 Drug: HYDROcodone-acetaminophen 5 mg-325 mg 1 tabs Route: PO; jb4 20:37 Follow up: Response: No adverse reaction [facility] Medication: 16:33 VIS not applicable for this client. mb9 Outcome: 18:41 Decision to Hospitalize by Provider. [facility] 21:37 Admitted to Med/surg accompanied by tech, via stretcher, room 220, with chart, Report jb4 called to TRUDY Lopez 21:37 Condition: stable 21:37 Discharge instructions given to patient, family, Instructed on the need for admit, Demonstrated understanding of instructions. 21:38 Patient left the ED. 4 NIH Stroke Scale - NIH Stroke Score Date: 06/12/2022 Time: 15:40 Total Score = 0 1a. Level of Consciousness (LOC) - 0(Alert) 1b. Level of Consciousness (LOC) (Month \T\ Age) - 0(Both) 1c. LOC Commands (Open \T\ Closes Eyes/Outsole Tacker) - 0(Both) 2. Best Gaze (Lateral Gaze Paresis) - 0(Normal) 3. Visual Field Loss - 0(No visual loss) 4. Facial Palsy - 0(Normal) 5a. Left Arm: Motor (10-second hold) - 0(No drift) 5b. Right Arm: Motor (10-second hold) - 0(No drift) 6a. Left Leg: Motor (5-second hold - always test supine) - 0(No drift) 6b. Right Leg: Motor (5-second hold - always test supine) - 0(No drift) 7. Limb Ataxia (finger/nose \T\ heel/monroy - test with eyes open) - 0(Absent) 8. Sensory Loss (pinprick arms/legs/face) - 0(Normal) 9. Best Language: Aphasia (description/naming/reading) - 0(No aphasia) 10. Dysarthria (speech clarity - read or repeat words) - 0(Normal) 11. Extinction and Inattention (visual/tactile/auditory/spatial/personal) - 0(No abnormality) Initials: jh7 Signatures: Dispatcher [employer] EDMS Belinda Guillen, RN RN Alexia Paul 4 Venkatesh Booker RN RN jb4 Tess Eric, LIBRARY TECHNICIAN LIBRARY TECHNICIAN jh7 Essie Cueto, RN RN mb9 Corrections: (The following items were deleted from the chart) 18:38 18:18 Respiratory: Airway is patent Respiratory effort is even, unlabored, mb9 Respiratory pattern is regular, symmetrical, mb9
--- NOTE | 2022-06-12 18:42 | EDPHYS ---
Physician Documentation [facility] Name: Giuliano Everett Age: 72 yrs Sex: Male : 1950 Arrival Date: 06/12/2022 Time: 15:35 Bed 8 Private MD: ED Physician Parish Morales HPI: 06/12 15:40 This 72 yrs old Male presents to ER via Wheelchair with complaints of General Weakness. jh7 15:40 Onset: The symptoms/episode began/occurred gradually, 3 week(s) ago. Associated signs jh7 and symptoms:. Patient reports progressive weakness over the past 3 weeks. The patient's daughter states that 1 week ago he was seen by his PCP and treated for what appeared to be streptococcal pharyngitis. He was treated with a Z-Rivas. He denies sore throat at this time, but complains of foul-smelling urine and difficulty emptying bladder due to enlarged prostate. Also complains of decreased appetite and dehydration. Patient's daughter reports that he can only drink half of a bottle of Mountain Dew per day. Denies chest pain and shortness of breath.. Historical: - Allergies: 15:40 No Known Allergies; hb - PMHx: 15:40 herniated discs; COPD; hb - Immunization history:: Adult Immunizations up to date. - Social history:: Smoking status: Patient denies any tobacco usage or history of. ROS: 15:40 Eyes: Negative for injury, pain, redness, and discharge, ENT: Negative for injury, jh7 pain, and discharge, Neck: Negative for injury, pain, and swelling, Cardiovascular: Negative for chest pain, palpitations, and edema, Abdomen/GI: Negative for abdominal pain, nausea, vomiting, diarrhea, and constipation, Back: Negative for injury and pain, MS/Extremity: Negative for injury and deformity, Skin: Negative for injury, rash, and discoloration. 15:40 Constitutional: Positive for fatigue, malaise, Negative for fever. 15:40 Respiratory: Positive for wheezing, Negative for shortness of breath. 15:40 : Positive for difficulty urinating, foul smelling urine, Negative for flank pain, burning with urination. 15:40 Neuro: Positive for weakness, Negative for altered mental status, dizziness, headache, loss of consciousness, numbness, syncope, tingling, visual changes. 15:40 All other systems are negative. Exam: 15:40 Head/Face: Normocephalic, atraumatic. Eyes: Pupils equal round and reactive to light, [facility] extra-ocular motions intact. Lids and lashes normal. Conjunctiva and sclera are non-icteric and not injected. Cornea within normal limits. Periorbital areas with no swelling, redness, or edema. ENT: Nares patent. No nasal discharge, no septal abnormalities noted. Tympanic membranes are normal and external auditory canals are clear. Oropharynx with no redness, swelling, or masses, exudates, or evidence of obstruction, uvula midline. Mucous membranes moist. Neck: Trachea midline, no thyromegaly or masses palpated, and no cervical lymphadenopathy. Supple, full range of motion without nuchal rigidity, or vertebral point tenderness. No Meningismus. Cardiovascular: Regular rate and rhythm with a normal S1 and S2. No gallops, murmurs, or rubs. Normal PMI, no JVD. No pulse deficits. Abdomen/GI: Soft, non-tender, with normal bowel sounds. No distension or tympany. No guarding or rebound. No evidence of tenderness throughout. Back: No spinal tenderness. No costovertebral tenderness. Full range of motion. Skin: Warm, dry with normal turgor. Normal color with no rashes, no lesions, and no evidence of cellulitis. MS/ Extremity: Pulses equal, no cyanosis. Neurovascular intact. Full, normal range of motion. Neuro: Awake and alert, GCS 15, oriented to person, place, time, and situation. Cranial nerves II-XII grossly intact. Motor strength 5/5 in all extremities. Sensory grossly intact. Cerebellar exam normal. Normal gait. 15:40 Constitutional: The patient appears alert, awake, pale. 15:40 Respiratory: the patient does not display signs of respiratory distress, Respirations: normal, Breath sounds: wheezing: is heard diffusely. 15:40 : CVA tenderness, is absent, Male external genitalia: normal, no abrasion, no discharge, no erythema, no swelling. 15:56 ECG was reviewed by the Attending Physician. [facility] Vital Signs: 15:37 BP 119 / 78; Pulse 113; Resp 20; Temp 98.6(TE); Pulse Ox 100% on R/A; Pain 8/10; hb 17:12 BP 148 / 89; Pulse 101; Resp 22; Pulse Ox 100% on R/A; mb9 18:19 BP 117 / 92; Pulse 110; Resp 18; Pulse Ox 100% on R/A; mb9 19:00 BP 111 / 75; Pulse 108; Resp 25; Pulse Ox 98% on R/A; jb4 20:00 BP 134 / 85; Pulse 103; Resp 24; Pulse Ox 95% on R/A; jb4 21:00 BP 116 / 83; Pulse 104; Resp 25; Pulse Ox 97% ; jb4 NIH Stroke Scale Scores: 15:40 NIHSS Score: 0 [facility] MDM: 15:35 Patient medically screened. [facility] 18:48 Differential diagnosis: pneumonia UTI, Electrolyte imbalance, flu, COVID, dehydration. [facility] Data reviewed: vital signs, nurses notes, lab test result(s), EKG, radiologic studies, plain films. Data interpreted: Pulse oximetry: is 100 %. Interpretation: normal. Counseling: I had a detailed discussion with the patient and/or guardian regarding: the historical points, exam findings, and any diagnostic results supporting the discharge/admit diagnosis, the need for further work-up and treatment in the hospital. ED course: Spoke to nurse saud Dominguez regarding patient admission. Antibiotics were started in the ER for UTI.. 06/12 15:44 Order name: Blood Culture Adult (2) [facility] 06/12 15:44 Order name: CBC with Diff; Complete Time: 16:56 [facility] 06/12 15:44 Order name: CMP; Complete Time: 17:25 [facility] 06/12 15:44 Order name: Lactate w/ 2H reflex if indic.; Complete Time: 17:15 [facility] 06/12 15:44 Order name: Protime (+inr); Complete Time: 17:03 [facility] 06/12 15:44 Order name: Ptt, Activated; Complete Time: 17:03 [facility] 06/12 15:44 Order name: Urine Culture [facility] 06/12 15:44 Order name: Urine Microscopic Only; Complete Time: 19:50 [facility] 06/12 15:44 Order name: COVID-19/FLU A+B; Complete Time: 17:28 [facility] 06/12 15:44 Order name: Troponin High Sensitivity; Complete Time: 17:25 [facility] 06/12 15:50 Order name: TSH; Complete Time: 17:15 [facility] 06/12 16:39 Order name: Glucose, Ancillary Testing; Complete Time: 16:40 EDMS 06/12 17:31 Order name: Strep; Complete Time: 19:50 [facility] 06/12 15:44 Order name: Chest Single View XRAY; Complete Time: 17:25 [facility] 06/12 15:44 Order name: EKG; Complete Time: 15:44 [facility] 06/12 15:44 Order name: Accucheck; Complete Time: 16:29 [facility] 06/12 15:44 Order name: Cardiac monitoring; Complete Time: 15:45 [facility] 06/12 15:44 Order name: EKG - Nurse/Tech; Complete Time: 16:19 [facility] 06/12 15:44 Order name: IV Saline Lock - Large Bore; Complete Time: 16:19 [facility] 06/12 15:44 Order name: Labs collected and sent; Complete Time: 16:19 [facility] 06/12 15:44 Order name: O2 Per Protocol; Complete Time: 15:45 [facility] 06/12 15:44 Order name: O2 Sat Monitoring; Complete Time: 15:45 [facility] 06/12 15:44 Order name: Urine Dipstick-Ancillary (obtain specimen); Complete Time: 18:17 [facility] 06/12 15:44 Order name: Vital Signs; Complete Time: 16:19 [facility] 06/12 18:16 Order name: Urine Dipstick-Ancillary; Complete Time: 18:17 EDMS EC:56 Rate is 110 beats/min. Rhythm is regular. Right axis deviation noted. QRS is positive jh7 in lead aVF and negative in lead V1. QRS interval is normal at 114 msec. QT interval is normal at 328 msec. Clinical impression: Sinus tachycardia and Sinus tachycardia with incomplete right bundle branch block. Administered Medications: 16:20 Drug: NS 0.9% 1000 ml Route: IV; Rate: 1 bolus; Site: left forearm; mb9 18:44 Follow up: IV Status: Infusion continued mb9 18:44 Follow up: Response: No adverse reaction mb9 18:10 Drug: DuoNeb (albuterol 2.5 mg, ipratropium 0.5 mg) (3:1) (2.5 mg - 0.5 mg) 3 ml Route: mb9 Nebulizer; 18:43 Follow up: Response: No adverse reaction mb9 18:32 Drug: Rocephin (cefTRIAXone) 1 grams Route: IV; Rate: 1 calculated rate; Site: left [facility] forearm; 18:43 Follow up: Response: No adverse reaction; IV Status: IV converted to saline lock 9 19:53 Drug: HYDROcodone-acetaminophen 5 mg-325 mg 1 tabs Route: PO; jb4 20:37 Follow up: Response: No adverse reaction jb4 Disposition Summary: 06/12/22 18:41 Hospitalization Ordered Hospitalization Status: Inpatient Admission [facility] Provider: Bronson Jernigan [facility] Location: Telemetry/MedSurg (Inpatient) [facility] Condition: Stable [facility] Problem: new [facility] Symptoms: have worsened [facility] Bed/Room Type: Standard [facility] Room Assignment: 220(06/12/22 20:30) Diagnosis - UTI/ Urinary tract infection, site not specified [facility] - Weakness [facility] Forms: - Medication Reconciliation Form [facility] - SBAR form [facility] NIH Stroke Scale - NIH Stroke Score Date: 06/12/2022 Time: 15:40 Total Score = 0 1a. Level of Consciousness (LOC) - 0(Alert) 1b. Level of Consciousness (LOC) (Month \T\ Age) - 0(Both) 1c. LOC Commands (Open \T\ Closes Eyes/Composing Machine Operator/Tender) - 0(Both) 2. Best Gaze (Lateral Gaze Paresis) - 0(Normal) 3. Visual Field Loss - 0(No visual loss) 4. Facial Palsy - 0(Normal) 5a. Left Arm: Motor (10-second hold) - 0(No drift) 5b. Right Arm: Motor (10-second hold) - 0(No drift) 6a. Left Leg: Motor (5-second hold - always test supine) - 0(No drift) 6b. Right Leg: Motor (5-second hold - always test supine) - 0(No drift) 7. Limb Ataxia (finger/nose \T\ heel/monroy - test with eyes open) - 0(Absent) 8. Sensory Loss (pinprick arms/legs/face) - 0(Normal) 9. Best Language: Aphasia (description/naming/reading) - 0(No aphasia) 10. Dysarthria (speech clarity - read or repeat words) - 0(Normal) 11. Extinction and Inattention (visual/tactile/auditory/spatial/personal) - 0(No abnormality) Initials: [facility] Addendum: 06/14/2022 17:37 Co-signature as Attending Physician, Parish Morales MD I agree with the rt assessment and plan of care. Signatures: Dispatcher [employer] EDMS Alberto Cummins, BOOK SOLICITOR-C BOOK SOLICITOR-Cla1 Marcelina Macias, RN RN cg Belinda Guillen, RN RN Venkatesh Booker RN RN 4 Tess [place] [id number] Essie Cueto RN RN mb9 Parish Morales MD MD rt Corrections: (The following items were deleted from the chart) 06/12 18:13 17:31 [place] ordered. [place] [address] 18:46 18:10 SARS-COV-2 Antigen Rapid+I.LAB.BRZ ordered. [facility] EDMS 20:30 18:41 [facility]
[2022-06-12 18:54] LABS: Urine Bacteria 20-50 /HPF (<20); Urine Mucus Slight /HPF (None Seen); Urine RBC >50 /HPF (None Seen); Urine WBC Clump Many /HPF (None Seen)
[2022-06-12] MEDS ORDERED: ONDANSETRON 4 MG/2 ML VIAL IV PRN (19:40)
[2022-06-12] MEDS ORDERED: ALBUTEROL 2.5 MG/3 ML NEB SOL NEB PRN (19:40)
[2022-06-12] MEDS ORDERED: IPRATROPIUM BROM 0.5MG/2.5ML NEB PRN (19:40)
[2022-06-12] MEDS: Ringers Lactate 1,000 ML IV SCH (19:40)
[2022-06-12] MEDS ORDERED: HYDROCODONE/APAP 5/325 MG TAB ONE (19:49)
--- NOTE | 2022-06-12 20:36 | P.HP ---
Certification for Inpatient Patient admitted to: Observation With expected LOS: <2 Midnights Patient will require the following post-hospital care: None Practitioner: I am a practitioner with admitting privileges, knowledge of patient current condition, hospital course, and medical plan of care. Services: Services provided to patient in accordance with Admission requirements found in Title 42 Section 412.3 of the Code of Federal Regulations Patient History Date of Service: 06/12/22 Reason for admission: UTI, weakness, dehydration History of Present Illness: 72-year-old male with history of COPD, hypertension, BPH presents to the emergency department for weakness, malaise, anorexia over the course of the last few days. He was seen at another hospital diagnosed with strep throat and completed course of Zithromax recently. He presented to the emergency department today for evaluation his labs were significant for leukocytosis white blood cell count 12.7 potassium of 5.5 with slight hemolysis sodium 129 chloride 96 urinalysis/urine microscopic suggestive of UTI. Patient reports poor oral intake recently as well as weakness, difficulty with ambulation. ED read wishes to admit under observation for UTI, weakness, dehydration. Allergies No Known Allergies Allergy (Verified 07/22/20 21:34) Home Medications: Amlodipine Besylate [Norvasc] 1 tab PO DAILY 07/22/20 Ascorbic Acid [Vitamin C*] 1,000 mg PO DAILY 07/22/20 Aspirin 1 tab PO DAILY 07/22/20 Atorvastatin Calcium [Lipitor*] 1 tab PO BEDTIME 07/22/20 Cholecalciferol (Vitamin D3) [Vitamin D3] 25 mcg PO DAILY 07/22/20 Cranberry 1,500 mg PO DAILY 07/22/20 Folic Acid 0.4 mg PO DAILY 07/22/20 Gabapentin 200 mg PO BID 07/22/20 L.acidoph,Paracasei, B.lactis [Probiotic] 1 cap PO DAILY 07/22/20 Lisinopril/Hydrochlorothiazide [Lisinopril-Hctz 10-12.5 mg Tab] 1 tab PO BID 07/22/20 Saw [place] 1 cap PO DAILY 07/22/20 Sertraline [Zoloft*] 1 tab PO DAILY 07/22/20 Zinc 1 tab PO DAILY 07/22/20 - Past Medical/Surgical History Diabetic: No -: COPD -: Back pain -: Anxiety -: Hypertension -: Tobacco abuse -: Recurrent UTI -: Large left inguinal hernia -: Right knee surgery Psychosocial/ Personal History: The patient is 37 years, he has 3 children. He has been disabled since 2000 for work accident. - Family History Mother -: Cancer Father -: Heart disease, Lung disease - Social History Smoking Status: Current every day smoker Counseled patient to stop smoking for: less than 10 minutes Alcohol use: No CD- Drugs: No Caffeine use: Yes Place of Residence: Home Review of Systems 10-point ROS is otherwise unremarkable General: Weakness, Malaise Respiratory: Shortness of Breath Genitourinary: Frequency Physical Examination - Physical Exam General: Alert, In no apparent distress, Oriented x3 HEENT: Atraumatic, PERRLA, Mucous membr. moist/pink, EOMI, Sclerae nonicteric Neck: Supple, 2+ carotid pulse no bruit, No LAD, Without JVD or thyroid abnormality Respiratory: Diminished, Expiratory wheezes Cardiovascular: Regular rate/rhythm, Normal S1 S2 Gastrointestinal: Normal bowel sounds, No tenderness Musculoskeletal: No tenderness Integumentary: No rashes Neurological: Normal speech, Normal strength at 5/5 x4 extr, Normal tone, Normal affect - Studies Laboratory Data (last 24 hrs) 06/12/22 16:10: PT 11.9, INR 1.08, APTT 33.1 06/12/22 16:10: Sodium 129 L, Potassium 5.5 H, BUN 35 H, Creatinine 0.98, Glucose 111 H, Total Bilirubin 0.3, AST 33, ALT 42, Alkaline Phosphatase 87 06/12/22 16:10: WBC 12.70 H, Hgb 12.4 L, Hct 38.0 L, Plt Count 319 Microbiology Data (last 24 hrs): 06/12/22 18:31 Throat Group A Streptococcus Rapid Screen - Final Assessment and Plan - Plan Assessment: UTI Mild hyponatremia, dehydration Anorexia Generalized weakness/deconditioning Hypertension BPH Plan: UTI: Urine culture obtained, continue Rocephin. Mild hyponatremia, dehydration: Continue IV fluids overnight. Encourage p.o. intake. Anorexia: Encourage p.o. intake, patient reports previous discomfort in throat seems to be improving after Zithromax. Strep swab sent. Generalized weakness/deconditioning: PT consult in place. Patient likely safe to discharge home tomorrow. Hypertension: Continue home meds BPH: Continue home meds DVT PPX: Lovenox Code status: Full Discharge Plan: Home Plan to discharge in: 24 Hours - Advance Directives Does patient have a Living Will: No Does patient have a Durable POA for Healthcare: No - Code Status/Comfort Care Code Status Assessed: Yes (Full code) Critical Care: No Time Spent Managing Pts Care (In Minutes): 55
[2022-06-12 22:28] VITALS: O2SAT 97
[2022-06-13 04:28] LABS: Absolute Lymphocytes (CBC) 1.1 K/uL (0.7-4.9); Hematocrit 33.3 % (39.6-49.0); Lymphocytes % 11.9 % (15.3-44.8); MPV 6.9 fL (7.6-11.3); RBC Red Blood Cell Count 3.79 M/uL (4.33-5.43)
[2022-06-13 04:37] LABS: Bilirubin Total 0.3 mg/dL (0.2-1.0); Potassium 4.8 mmol/L (3.5-5.1); Protein, Total 6.2 g/dL (6.4-8.2)
[2022-06-13] MEDS: Ringers Lactate 1,000 ML IV SCH ×3 (05:40→14:20)
[2022-06-13] MEDS: CEFTRIAXONE 1,000 MG in NA CHLORIDE 0.9% 50 ML IVPB SCH (08:32)
[2022-06-13] MEDS: ENOXAPARIN 40 MG/0.4 ML SQ SCH (08:35)
--- NOTE | 2022-06-13 11:35 | P.PN ---
Subjective Date of Service: 06/13/22 Chief Complaint: UTI, weakness, dehydration Patient states he feels much better and stronger today. Currently has no complaints. He is eating well. Physical Examination - Vital Signs Temperature: 98.2 F Blood Pressure: 131/86 Pulse: 109 Respirations: 18 Pulse Ox (%): 97 - Studies Laboratory Data (last 24 hrs) 06/12/22 16:10: PT 11.9, INR 1.08, APTT 33.1 06/12/22 16:10: Sodium 129 L, Potassium 5.5 H, BUN 35 H, Creatinine 0.98, Glucose 111 H, Total Bilirubin 0.3, AST 33, ALT 42, Alkaline Phosphatase 87 06/12/22 16:10: WBC 12.70 H, Hgb 12.4 L, Hct 38.0 L, Plt Count 319 Microbiology Data (last 24 hrs): 06/12/22 18:31 Throat Group A Streptococcus Rapid Screen - Final Assessment And Plan - Current Problems (Diagnosis) (1) BPH (benign prostatic hyperplasia) Current Visit: Yes Status: Acute (2) UTI (urinary tract infection) Onset Date: 11/29/16 Current Visit: No Status: Acute Qualifiers: Urinary tract infection type: site unspecified Hematuria presence: without hematuria Qualified Code(s): N39.0 - Urinary tract infection, site not specified (3) COPD (chronic obstructive pulmonary disease) Onset Date: 11/29/16 Current Visit: No Status: Chronic Qualifiers: COPD type: unspecified COPD Qualified Code(s): J44.9 - Chronic obstructive pulmonary disease, unspecified (4) Hypertension Onset Date: 11/29/16 Current Visit: No Status: Chronic Qualifiers: Hypertension type: essential hypertension Qualified Code(s): I10 - Essential (primary) hypertension - Plan Physical Exam General: Alert, In no apparent distress, Oriented x3 HEENT: Poor dentition. Respiratory: Diminished, clear to auscultation. Cardiovascular: Regular rate/rhythm, Normal S1 S2 Gastrointestinal: Normal bowel sounds, No tenderness Musculoskeletal: No tenderness Integumentary: No rashes Neurological: Normal speech, no focal motor deficit. Plan: Continue current antibiotics. Follow urine culture Activity as tolerated. Continue bronchodilators for COPD Resume home BPH medications.
[2022-06-13] MEDS: AMLODIPINE 2.5 MG TAB PO SCH (12:16)
[2022-06-13] MEDS: TAMSULOSIN 0.4 MG SR CAP PO SCH (12:17)
[2022-06-13] MEDS: FINASTERIDE 5 MG TAB PO SCH (12:17)
[2022-06-13] MEDS: GABAPENTIN 100 MG CAP PO SCH ×2 (12:19→20:51)
[2022-06-13] MEDS: ASCORBIC ACID 500 MG TABLET PO SCH ×2 (14:20→20:50)
[2022-06-13] MEDS: HOME MED 1 EA UNK (Lisinopril/Hydrochlorothiazide [Lisinopril-Hctz 10-12.5 Mg Tab] Tablet) PO SCH (20:51)
[2022-06-13] MEDS: SERTRALINE HCL 100 MG TAB PO SCH (20:51)
[2022-06-13] MEDS ORDERED: ATORVASTATIN 10 MG TAB PO SCH (21:00)
[2022-06-14] MEDS: Ringers Lactate 1,000 ML IV SCH (00:29)
[2022-06-14 00:53] VITALS: BMI 22.1
[2022-06-14 06:22] LABS: Bilirubin Total 0.3 mg/dL (0.2-1.0)
[2022-06-14 06:28] LABS: Absolute Lymphocytes (CBC) 1.2 K/uL (0.7-4.9); Hematocrit 32.1 % (39.6-49.0); MCV 88.3 fL (80-100); MPV 6.9 fL (7.6-11.3); RBC Red Blood Cell Count 3.63 M/uL (4.33-5.43)
--- NOTE | 2022-06-14 08:12 | P.DS ---
Admission Date: 06/12/22 Discharge Date: 06/14/22 Disposition: ROUTINE DISCHARGE Discharge Condition: FAIR Reason for Admission: UTI, weakness, dehydration - Problems (1) BPH (benign prostatic hyperplasia) Current Visit: Yes Status: Acute (2) UTI (urinary tract infection) Onset Date: 11/29/16 Current Visit: No Status: Acute Qualifiers: Urinary tract infection type: site unspecified Hematuria presence: without hematuria Qualified Code(s): N39.0 - Urinary tract infection, site not specified (3) COPD (chronic obstructive pulmonary disease) Onset Date: 11/29/16 Current Visit: No Status: Chronic Qualifiers: COPD type: unspecified COPD Qualified Code(s): J44.9 - Chronic obstructive pulmonary disease, unspecified (4) Hypertension Onset Date: 11/29/16 Current Visit: No Status: Chronic Qualifiers: Hypertension type: essential hypertension Brief History of Present Illness: 72-year-old male with history of COPD, hypertension, BPH presents to the emergency department for weakness, malaise, anorexia over the course of the last few days. He was seen at another hospital diagnosed with strep throat and completed course of Zithromax recently. He presented to the emergency department for evaluation his labs were significant for leukocytosis white blood cell count 12.7 potassium of 5.5 with slight hemolysis sodium 129 chloride 96 urinalysis/urine microscopic suggestive of UTI. Patient reported poor oral intake recently as well as weakness, difficulty with ambulation. Patient hospit alized for further management. Hospital Course: Patient admitted to the medical floor and treated with bronchodilators and antibiotics. Patient clinically improved with treatment. He was stable on room air with good oxygen saturation. UA suggested UTI. Urine culture showed mixed growth. Patient has clinically improved to baseline. He is eating. He is deemed stable for discharge. He is prescribed oral Levaquin to continue treatment for infective bronchitis and UTI. Vital Signs/Physical Exam: Temp Pulse Resp BP Pulse Ox 97.6 F 99 H 18 137/77 98 06/14/22 04:00 06/14/22 04:00 06/14/22 04:00 06/14/22 04:00 06/14/22 04:00 General: Alert, In no apparent distress, Oriented x3 HEENT: Mucous membr. moist/pink Neck: JVD not distended Respiratory: Clear to auscultation bilaterally, Normal air movement Cardiovascular: No edema, Regular rate/rhythm, Normal S1 S2 Gastrointestinal: Soft and benign, Non-distended Musculoskeletal: No swelling Integumentary: No rashes Neurological: Normal strength at 5/5 x4 extr Laboratory Data at Discharge: WBC 8.20 K/uL (4.3-10.9) 06/14/22 05:44 Hgb 10.5 g/dL (13.6-17.9) L 06/14/22 05:44 Hct 32.1 % (39.6-49.0) L 06/14/22 05:44 Plt Count 272 K/uL (152-406) 06/14/22 05:44 PT 11.9 SECONDS (9.5-12.5) 06/12/22 16:10 INR 1.08 06/12/22 16:10 APTT 33.1 SECONDS (24.3-36.9) 06/12/22 16:10 Sodium 134 mmol/L (136-145) L 06/14/22 05:44 Potassium 4.0 mmol/L (3.5-5.1) D 06/14/22 05:44 BUN 15 mg/dL (7-18) 06/14/22 05:44 Creatinine 0.77 mg/dL (0.55-1.3) 06/14/22 05:44 Glucose 104 mg/dL (74-106) 06/14/22 05:44 Total Bilirubin 0.3 mg/dL (0.2-1.0) 06/14/22 05:44 AST 25 U/L (15-37) 06/14/22 05:44 ALT 62 U/L (12-78) 06/14/22 05:44 Alkaline Phosphatase 76 U/L (45-117) 06/14/22 05:44 Home Medications: Amlodipine Besylate [Norvasc] 1 tab PO PRN 07/22/20 Ascorbic Acid [Vitamin C*] 1,000 mg PO TID 07/22/20 Aspirin 1 tab PO DAILY 07/22/20 Atorvastatin Calcium [Lipitor*] 1 tab PO BEDTIME 07/22/20 Cholecalciferol (Vitamin D3) [Vitamin D3] 25 mcg PO DAILY 07/22/20 Cranberry 500 mg PO DAILY 07/22/20 Folic Acid 0.4 mg PO DAILY 07/22/20 Gabapentin 100 mg PO TID 07/22/20 L.acidoph,Paracasei, B.lactis [Probiotic] 1 cap PO DAILY 07/22/20 Lisinopril/Hydrochlorothiazide [Lisinopril-Hctz 10-12.5 mg Tab] 1 tab PO BID 07/22/20 Saw [place] 1 cap PO DAILY 07/22/20 Sertraline [Zoloft*] 1 tab PO BID 07/22/20 Zinc 1 tab PO DAILY 07/22/20 Albuterol Sulfate [Albuterol Sulfate Hfa] 2 inhaler PRN 06/12/22 Finasteride 5 mg PO DAILY 06/12/22 Tamsulosin [Flomax*] 0.4 mg PO DAILY 06/12/22 Fluticasone/Salmeterol [Advair 250-50 Diskus] 1 each IH BID #1 kit 06/14/22 levoFLOXacin [Levaquin] 750 mg PO DAILY #7 tab 06/14/22 New Medications: Fluticasone/Salmeterol [Advair 250-50 Diskus] 1 each IH BID #1 kit levoFLOXacin [Levaquin] 750 mg PO DAILY #7 tab Diet: AHA Activity: Ad jo Followup: NONE,NONE [Primary Care Provider] - 1-2 Weeks
[2022-06-14] MEDS: ASCORBIC ACID 500 MG TABLET PO SCH (08:25)
[2022-06-14] MEDS: TAMSULOSIN 0.4 MG SR CAP PO SCH (08:25)
[2022-06-14] MEDS: GABAPENTIN 100 MG CAP PO SCH (08:26)
[2022-06-14] MEDS: SERTRALINE HCL 100 MG TAB PO SCH (08:26)
[2022-06-14] MEDS: FINASTERIDE 5 MG TAB PO SCH (08:26)
[2022-06-14] MEDS: AMLODIPINE 2.5 MG TAB PO SCH (08:26)
[2022-06-14] MEDS: HOME MED 1 EA UNK (Lisinopril/Hydrochlorothiazide [Lisinopril-Hctz 10-12.5 Mg Tab] Tablet) PO SCH (08:27)
[2022-06-14] MEDS: ENOXAPARIN 40 MG/0.4 ML SQ SCH (08:27)
[2022-06-14] MEDS: CEFTRIAXONE 1,000 MG in NA CHLORIDE 0.9% 50 ML IVPB SCH (08:28)
[2022-06-14 08:50] VITALS: BP 129/78; TEMP 97.7
[2022-06-14] MEDS ORDERED: VITAMIN D 1000 UNIT TAB PO SCH (09:00)
[2022-06-14] MEDS ORDERED: LACTOBACILLUS/ACIDOPHILUS TAB PO SCH (09:00)
[2022-06-14] MEDS ORDERED: ZINC SULFATE 220 MG CAP PO SCH (09:00)
[2022-06-14] MEDS ORDERED: FOLIC ACID 1 MG TABLET PO SCH (09:00)
[2022-06-14] MEDS ORDERED: ASPIRIN 81 MG CHEWABLE TABLET PO SCH (09:00)
--- NOTE | 2022-06-14 15:34 | EKG ---
Test Date: 2022-06-12 Test Time: 15:56:14 Staff Midwife: MB MEASUREMENT RESULTS: Intervals: Rate: 110 LA: 124 QRSD: 114 QT: 328 QTc: 443 [place]: P: 82 LA: 124 QRS: 90 T: 80 INTERPRETIVE STATEMENTS: Sinus tachycardia Right atrial enlargement Rightward axis Pulmonary disease pattern Incomplete right bundle branch block Abnormal ECG Compared to ECG 11/26/2016 11:36:16 Atrial abnormality now present Right-axis deviation now present Incomplete right bundle-branch block now present Electronically Signed On 06-14-22 15:30:23 ANIMAL CARE SPECIALIST by Juan Mednoza
== END 2022-06-14 11:25 | disposition home or self-care (01) ==
LOC: ER 15:30 → ERHOLD 18:56 → 2ND 21:18
PROVIDERS: ADMIT Internal Medicine; ATTEND Internal Medicine
DX: J44.9 Chronic obstructive pulmonary disease, unspecified (principal); N39.0 Urinary tract infection, site not specified; I10 Essential (primary) hypertension; E87.1 Hypo-osmolality and hyponatremia; E86.0 Dehydration; R63.0 Anorexia; Z68.22 Body mass index [BMI] 22.0-22.9, adult; N40.0 Benign prostatic hyperplasia without lower urinary tract symptoms; Z20.822 Contact with and (suspected) exposure to COVID-19
CPT/HCPCS: 96361; 93005; 87040 ×2; 87070; 87088; 85025 ×3; 87086; 36415 ×2; 85610; 82947; 87081; 83605; 85730; 84443; 84484; 84439; 80053 ×3; 0240U; 71045; 94640; 96374; 99285; J7613; J7644; J1650 ×2; J7120 ×3; J7030 ×2; G0378 ×4; 81003; 81015

== ENCOUNTER 2022-06-18 16:58 | Inpatient (IN) | payer OTHER ==
--- OUTSIDE RECORDS SUMMARY | 2022-06-18 17:01 | XMS REPORT | Continuity of Care Document ---
:1950 Author Organization [facility] Address [address] [place] [address] [place] [id number] Care Team Providers Name Role Phone ESTEBAN [...] ID 2022-02-02 2022-02-02 Outpatient MARQUISE CABRERA [id number] [place] 10:04:00 10:04:00 [id number] [address] [facility] Program Results This patient has no known results.
--- NOTE | 2022-06-18 18:20 | ER ---
Nurse's Notes [facility] Name: Giuliano Everett Age: 72 yrs Sex: Male : 1950 Arrival Date: 06/18/2022 Time: 17:00 Bed 19 Private MD: Diagnosis: UTI/ Urinary tract infection, site not specified;Acute cystitis;COPD/ Chronic obstructive pulmonary disease with (acute) exacerbation;Tobacco abuse counseling;Tobacco use;Repeated falls;Fall on same level, unspecified;Unspecified injury of head, initial encounter;Elevated white blood cell count;Anemia, unspecified;Unspecified kidney failure-insufficency Presentation: 06/18 17:15 Chief complaint: Was inpatient last week for UTI, c/o generalized weakness, dizziness, hb and frequent falls since being discharged home 06/14. Large contusion and swelling noted to left forehead. Coronavirus screen: At this time, the client does not indicate any symptoms associated with coronavirus-19. Ebola Screen: No symptoms or risks identified at this time. Initial Sepsis Screen: Does the patient meet any 2 criteria? No. Patient's initial sepsis screen is negative. Does the patient have a suspected source of infection? No. Patient's initial sepsis screen is negative. 17:15 Method Of Arrival: Wheelchair hb 17:15 Acuity: TR 3 hb 17:15 Mechanism of Injury: resulted from a fall, from a standing position. Risk Assessment: bp Do you want to hurt yourself or someone else? Patient reports no desire to harm self or others. Onset of symptoms is unknown. Triage Assessment: 17:15 General: Appears distressed, Behavior is calm, cooperative, appropriate for age. Pain: bp Complains of pain in face. EENT: No deficits noted. Neuro: Level of Consciousness is awake, alert, obeys commands, Oriented to Appropriate for age Reports dizziness. Cardiovascular: Rhythm is sinus rhythm. Respiratory: Breath sounds with wheezes bilaterally. GI: No signs and/or symptoms were reported involving the gastrointestinal system. : Reports burning with urination. Derm: No deficits noted. Musculoskeletal: No deficits noted. Historical: - Allergies: 17:19 No Known Allergies; hb - PMHx: 17:19 herniated discs; COPD; hb - Immunization history:: Adult Immunizations up to date. - Family history:: not pertinent. - Social history:: Smoking status: Patient reports the use of cigarette tobacco products, unknown amount. Screenin:15 Abuse screen: Denies threats or abuse. Denies injuries from another. Nutritional bp screening: No deficits noted. Tuberculosis screening: No symptoms or risk factors identified. Fall Risk Fall in past 12 months (25 points). No secondary diagnosis (0 pts). No IV (0 pts). Ambulatory Aid- Crutches/Cane/Walker (15 pts). Gait- Weak (10 pts.). Mental Status- Oriented to own ability (0 pts). Total Allan Fall Scale indicates High Risk Score (45 or more points). Fall prevention measures have been instituted. Side Rails Up X 2 Placed Close to Nursing Station Frequent Obs/Assessments Occuring Family Present and informed to notify staff if the need to leave the bedside As available patient and family educated on Fall Prevention Program and Strategies. Assessment: 20:18 General: Appears in no apparent distress. Behavior is calm, cooperative. Pain: Denies kd3 pain. Neuro: Level of Consciousness is awake, alert, obeys commands, Oriented to person, place, time, situation. Respiratory: Airway is patent Trachea midline Respiratory effort is even, unlabored, Respiratory pattern is regular, symmetrical. Injury Description: Bruise sustained to left gnosticism and top of head and left side of forehead. 22:52 Reassessment: No changes from previously documented assessment. Patient and/or family kd3 updated on plan of care and expected duration. Pain level reassessed. Patient is alert, oriented x 3, equal unlabored respirations, skin warm/dry/pink. 23:10 General: Appears in no apparent distress. Behavior is calm, cooperative. Pain: Denies kd3 pain. Neuro: Level of Consciousness is awake, alert, obeys commands, Oriented to person, place, time, situation. Respiratory: Airway is patent Trachea midline Respiratory effort is even, unlabored, Respiratory pattern is regular, symmetrical. 23:45 General: Code stroke called. Patient is confused and not responding appropriatly. Pt is kd3 agitated and does not follow commands. pt taken directly to CT. Blood sugar was within normal limits . 06/19 00:02 General: Patient is confused and not responding appropriately. Daughter at the bedside tw5 concerned. Provider notififed. Code Stroke called. . 00:20 Reassessment: decision to administer TNK made. Pt is weighed using the weigh stretcher kd3 after zeroing it out. consent signed by daughter and placed in the chart. risks discussed by provider. Patient remains confused, unable to follow commands, agitated. vital signs are stable at this time. 01:20 General: Appears second IV obtained prior to administration of TNK. unable to obtain kd3 NIH score due to inability to follow directions. Provider at bedside. Provider notified. . 01:28 Neuro: Level of Consciousness is confused, Oriented to person. kd3 01:28 Respiratory: Airway is patent Trachea midline Respiratory effort is even, unlabored, kd3 Respiratory pattern is regular, symmetrical. 01:28 Cardiovascular: Capillary refill < 3 seconds in bilateral fingers toes Patient's skin kd3 is warm and dry. Rhythm is regular. 01:33 Neuro: Level of Consciousness is confused, Oriented to person. kd3 01:33 Respiratory: Airway is patent Trachea midline Respiratory effort is even, unlabored, kd3 Respiratory pattern is regular, symmetrical. 01:33 Cardiovascular: Capillary refill < 3 seconds in bilateral fingers Patient's skin is kd3 warm and dry. Rhythm is regular. 01:48 Neuro: Level of Consciousness is confused, Oriented to person. kd3 02:03 Neuro: Level of Consciousness is confused, Oriented to person. kd3 02:18 Neuro: Level of Consciousness is confused, Oriented to person. kd3 02:23 Neuro: Level of Consciousness is confused, Oriented to person. kd3 02:37 Reassessment: No changes from previously documented assessment. Patient and/or family kd3 updated on plan of care and expected duration. Pain level reassessed. Patient is alert, oriented x 3, equal unlabored respirations, skin warm/dry/pink. Neuro: Level of Consciousness is confused, Oriented to person. Cardiovascular: Patient's skin is warm and dry. Rhythm is regular. Respiratory: Airway is patent Trachea midline Respiratory effort is even, unlabored, Respiratory pattern is regular, symmetrical. 04:04 Reassessment: No changes from previously documented assessment. Patient and/or family kd3 updated on plan of care and expected duration. Pain level reassessed. Patient is alert, oriented x 3, equal unlabored respirations, skin warm/dry/pink. General: Appears in no apparent distress. Neuro: Level of Consciousness is confused, Oriented to person. 04:09 General: Pt is slightly easier to arouse but continues to be confused. does not answer kd3 appropriately and does not follow commands. . 06/20 02:14 Reassessment: being transfer in hospital bed to room 402. by nurse. ha1 Vital Signs: 06/18 17:15 BP 97 / 60; Pulse 107; Resp 18; Temp 99; Pulse Ox 97% on R/A; Weight 64.86 kg; Height 5 hb ft. 8 in. (172.72 cm); Pain 5/10; 18:30 BP 115 / 79; Pulse 94; Resp 20; Pulse Ox 100% ; bp 20:19 BP 127 / 74; Pulse 103; Resp 18; Pulse Ox 98% on R/A; kd3 22:30 BP 132 / 82; Pulse 101; Resp 20; Pulse Ox 100% on R/A; kd3 22:52 BP 133 / 81; Pulse 101; Resp 16; Pulse Ox 97% on R/A; kd3 06/19 01:16 Weight 70.31 kg (M); jb4 01:27 BP 126 / 77; Pulse 98; Resp 17; Pulse Ox 98% on 2 lpm NC; kd3 01:34 BP 127 / 81; Pulse 98; Resp 19; Pulse Ox 98% on 2 lpm NC; kd3 01:48 BP 123 / 72; Pulse 97; Resp 17; Pulse Ox 98% on 2 lpm NC; kd3 02:03 BP 123 / 80; Pulse 95; Resp 16; Pulse Ox 98% on 2 lpm NC; kd3 02:18 BP 131 / 71; Pulse 92; Resp 16; Pulse Ox 94% on 2 lpm NC; kd3 02:23 BP 124 / 81; Pulse 85; Resp 16; Pulse Ox 94% on 2 lpm NC; kd3 02:38 BP 130 / 81; Pulse 91; Resp 17; Pulse Ox 95% on 2 lpm NC; kd3 02:59 BP 135 / 80; Pulse 98; Resp 21; Pulse Ox 97% on 2 lpm NC; kd3 04:03 BP 123 / 85; Pulse 96; Resp 15; Pulse Ox 96% on 2 lpm NC; kd3 04:08 BP 123 / 77; Pulse 96; Resp 15; Pulse Ox 98% on 2 lpm NC; kd3 01:16 Body Mass Index 23.57 (70.31 kg, 172.72 cm) jb4 Davy Coma Score: 06/18 17:15 Eye Response: spontaneous(4). Verbal Response: oriented(5). Motor Response: obeys bp commands(6). Total: 15. 17:47 Eye Response: spontaneous(4). Verbal Response: oriented(5). Motor Response: obeys nevaeh commands(6). Total: 15. 17:51 Eye Response: spontaneous(4). Verbal Response: oriented(5). Motor Response: obeys nevaeh commands(6). Total: 15. ED Course: 17:00 Patient arrived in ED. as 17:15 Patient has correct armband on for positive identification. Bed in low position. Call bp light in reach. Side rails up X2. Adult w/ patient. 17:18 Triage completed. hb 17:19 Arm band placed on. hb 17:21 Kedar Sanchez, TRUDY is Primary Nurse. bp 17:36 Antoine Pacheco MD is Attending Physician. nevaeh 18:10 Inserted saline lock: 22 gauge in right forearm, using aseptic technique. Blood bp collected. 18:19 William Aceves MD is Hospitalizing Provider. nevaeh 18:21 XRAY Chest (1 view) In Process Unspecified. EDMS 18:30 No provider procedures requiring assistance completed. Patient admitted, IV remains in bp place. 19:04 US Extremity Venous W Compression Fritz In Process Unspecified. EDMS 19:50 Head C Spine Cap W Con In Process Unspecified. EDMS 21:23 Smith cath inserted, using sterile technique, 12 Fr., by wv, balloon inflated, to kd3 gravity drainage. 22:30 SARS RAPID Sent. kd3 22:31 Urine Culture Sent. kd3 06/19 01:20 Inserted saline lock: 20 gauge in left forearm, using aseptic technique. kd3 Administered Medications: 06/18 18:10 Drug: NS 0.9% 1000 ml Route: IV; Rate: 125 ml/hr; Site: right forearm; bp 22:31 Follow up: IV Status: Infusion continued kd3 18:30 Drug: Rocephin (cefTRIAXone) 1 grams Route: IV; Rate: per protocol; Site: right forearm;bp 20:20 Follow up: Response: No adverse reaction; IV Status: Completed infusion kd3 18:30 Drug: SOLU-Medrol (methylPrednisoLONE) 125 mg Route: IVP; Site: right forearm; bp 22:31 Follow up: Response: No adverse reaction kd3 18:30 Drug: Xopenex (levalbuterol) 3.75 mg Route: Inhalation; bp 18:30 Drug: AtroVENT (ipratropium) Aerosol 0.5 mg Route: Inhalation; bp 18:30 Drug: Pepcid (famotidine) 20 mg Route: IVP; Site: right forearm; bp 22:31 Follow up: Response: No adverse reaction kd3 21:19 Drug: NS 0.9% (30 ml/kg) 30 ml/kg Route: IV; Rate: bolus; Site: right forearm; kd3 22:31 Follow up: Response: No adverse reaction kd3 23:48 CANCELLED (Physician Discretion): Ativan (LORazepam) 0.5 mg IVP once tw5 06/19 01:29 Drug: TNK FOR STROKE - Tenecteplase 0.25 mg/kg {Co-Signature: kd3 (Mandy grewal RN).} Route: IV; Rate: per protocol; Site: right forearm; 02:38 Follow up: IV Status: Completed infusion kd3 Medication: 06/18 20:19 VIS not applicable for this client. kd3 Intake: 22:29 IV: 1500ml (IV Fluid); Total: 1500ml. kd3 Output: 22:29 Urine: 1000ml (Smith); Total: 1000ml. kd3 22:29 Urine: 1800ml (Smith); Total: 2800ml. kd3 06/19 05:07 Urine: 1200ml (Smith); Total: 4000ml. kd3 Outcome: 06/18 18:20 Decision to Hospitalize by Provider. [facility] [place] 06/19 02:00 Admitted to ER Hold. Please see [facility] for further documentation. jl7 Condition: stable Discharge instructions given to patient, family, Instructed on the need for admit, Demonstrated understanding of instructions. 06/20 02:15 Patient left the ED. ha1 Signatures: Dispatcher [employer] Antoine Barrios MD MD cha Martinez, Amelia as Baxter, Heather, RN RN Venkatesh Booker RN RN jb4 Marry Chun RN RN jl7 Kedar Sanchez RN RN bp Wood, Tiffany tw5 Mandy Mays RN RN kd3 Eve Morales, TRUDY RN ha1 Mandy Mays RN kd3 Corrections: (The following items were deleted from the chart) 06/18 22:37 22:30 UA MICROSCOPIC+U.LAB.BRZ drawn and sent. kd3 EDMS 22:37 22:30 URINALYSIS+U.LAB.BRZ drawn and sent. kd3 EDMS 06/19 00:04 00:02 General: Patient is confused and not responding appropriately. Daughter at the [facility] bedside concerned. Provider notififed. Code Stroke called. . [facility] 02:29 00:20 Reassessment: decision to administer TNK made. Pt is weighed using the weigh kd3 stretcher after zeroing it out. consent signed by daughter. Patient remains confused, unable to follow commands, agitated. vital signs are stable at this time. kd3 02:35 01:20 General: Appears second IV obtained prior to administration of TNK. . kd3 kd3 02:36 01:28 Neuro: Level of Consciousness is confused, Oriented to person, kd3 kd3 02:36 02:34 Respiratory: kd3 kd3 02:37 01:33 Neuro: Level of Consciousness is confused, Oriented to person, kd3 kd3 02:54 01:34 BP 123 / 72; Pulse 97bpm; Resp 17bpm; Pulse Ox 98% 2 lpm Nasal Cannula; kd3 kd3
--- NOTE | 2022-06-18 18:21 | EDPHYS ---
Physician Documentation [facility] Name: Giuliano Everett Age: 72 yrs Sex: Male : 1950 Arrival Date: 06/18/2022 Time: 17:00 Bed 19 Private MD: ED Physician Antoine Pacheco HPI: 06/18 17:47 This 72 yrs old Male presents to ER via Wheelchair with complaints of Urinary nevaeh Problem, repeated falls, Head Injury-Adult. 17:47 The patient or guardian reports decreased movement, deformity. The complaints affect nevaeh the forehead, left frontal area and left side of forehead. Context of injury: The problem was sustained at home, resulted from a direct blow, on the floor. Onset: The symptoms/episode began/occurred yesterday. Associated signs and symptoms: Loss of consciousness: This patient did not experience any loss of consciousness. Pertinent positives: headache, injury. Severity of symptoms: At their worst the symptoms were mild, in the emergency department the symptoms are unchanged. The patient has experienced similar episodes in the past, several times. Historical: - Allergies: 17:19 No Known Allergies; hb - PMHx: 17:19 herniated discs; COPD; hb - Immunization history:: Adult Immunizations up to date. - Family history:: not pertinent. - Social history:: Smoking status: Patient reports the use of cigarette tobacco products, unknown amount. ROS: 17:47 Constitutional: Negative for fever, chills, and weight loss, Eyes: Negative for injury, nevaeh pain, redness, and discharge, ENT: Negative for injury, pain, and discharge, Neck: Negative for injury, pain, and swelling, Cardiovascular: Negative for chest pain, palpitations, and edema, Abdomen/GI: Negative for abdominal pain, nausea, vomiting, diarrhea, and constipation, Back: Negative for injury and pain, : Negative for injury, bleeding, discharge, and swelling, MS/Extremity: Negative for injury and deformity, Skin: Negative for injury, rash, and discoloration, Psych: Negative for depression, anxiety, suicide ideation, homicidal ideation, and hallucinations, Allergy/Immunology: Negative for hives, rash, and allergies, Endocrine: Negative for neck swelling, polydipsia, polyuria, polyphagia, and marked weight changes, Hematologic/Lymphatic: Negative for swollen nodes, abnormal bleeding, and unusual bruising. 17:47 Respiratory: Positive for cough, shortness of breath. 17:47 Neuro: Positive for gait disturbance, headache, weakness. Exam: 17:47 Constitutional: This is a well developed, well nourished patient who is awake, alert, nevaeh and in no acute distress. Eyes: Pupils equal round and reactive to light, extra-ocular motions intact. Lids and lashes normal. Conjunctiva and sclera are non-icteric and not injected. Cornea within normal limits. Periorbital areas with no swelling, redness, or edema. ENT: Nares patent. No nasal discharge, no septal abnormalities noted. Tympanic membranes are normal and external auditory canals are clear. Oropharynx with no redness, swelling, or masses, exudates, or evidence of obstruction, uvula midline. Mucous membranes moist. Neck: Trachea midline, no thyromegaly or masses palpated, and no cervical lymphadenopathy. Supple, full range of motion without nuchal rigidity, or vertebral point tenderness. No Meningismus. Chest/axilla: Normal chest wall appearance and motion. Nontender with no deformity. No lesions are appreciated. Cardiovascular: Regular rate and rhythm with a normal S1 and S2. No gallops, murmurs, or rubs. Normal PMI, no JVD. No pulse deficits. Abdomen/GI: Soft, non-tender, with normal bowel sounds. No distension or tympany. No guarding or rebound. No evidence of tenderness throughout. Back: No spinal tenderness. No costovertebral tenderness. Full range of motion. Male : Normal genitalia with no discharge or lesions. Skin: Warm, dry with normal turgor. Normal color with no rashes, no lesions, and no evidence of cellulitis. MS/ Extremity: Pulses equal, no cyanosis. Neurovascular intact. Full, normal range of motion. Neuro: Awake and alert, GCS 15, oriented to person, place, time, and situation. Cranial nerves II-XII grossly intact. Motor strength 5/5 in all extremities. Sensory grossly intact. Cerebellar exam normal. Normal gait. Psych: Awake, alert, with orientation to person, place and time. Behavior, mood, and affect are within normal limits. 17:47 Head/face: Noted is contusion, hematoma, swelling, that is moderate, of the top of head, forehead and left samaritan. Vital Signs: 17:15 BP 97 / 60; Pulse 107; Resp 18; Temp 99; Pulse Ox 97% on R/A; Weight 64.86 kg; Height 5 hb ft. 8 in. (172.72 cm); Pain 5/10; 18:30 BP 115 / 79; Pulse 94; Resp 20; Pulse Ox 100% ; bp 20:19 BP 127 / 74; Pulse 103; Resp 18; Pulse Ox 98% on R/A; kd3 22:30 BP 132 / 82; Pulse 101; Resp 20; Pulse Ox 100% on R/A; kd3 22:52 BP 133 / 81; Pulse 101; Resp 16; Pulse Ox 97% on R/A; kd3 06/19 01:16 Weight 70.31 kg (M); jb4 01:27 BP 126 / 77; Pulse 98; Resp 17; Pulse Ox 98% on 2 lpm NC; kd3 01:34 BP 127 / 81; Pulse 98; Resp 19; Pulse Ox 98% on 2 lpm NC; kd3 01:48 BP 123 / 72; Pulse 97; Resp 17; Pulse Ox 98% on 2 lpm NC; kd3 02:03 BP 123 / 80; Pulse 95; Resp 16; Pulse Ox 98% on 2 lpm NC; kd3 02:18 BP 131 / 71; Pulse 92; Resp 16; Pulse Ox 94% on 2 lpm NC; kd3 02:23 BP 124 / 81; Pulse 85; Resp 16; Pulse Ox 94% on 2 lpm NC; kd3 02:38 BP 130 / 81; Pulse 91; Resp 17; Pulse Ox 95% on 2 lpm NC; kd3 02:59 BP 135 / 80; Pulse 98; Resp 21; Pulse Ox 97% on 2 lpm NC; kd3 04:03 BP 123 / 85; Pulse 96; Resp 15; Pulse Ox 96% on 2 lpm NC; kd3 04:08 BP 123 / 77; Pulse 96; Resp 15; Pulse Ox 98% on 2 lpm NC; kd3 01:16 Body Mass Index 23.57 (70.31 kg, 172.72 cm) jb4 Sean Coma Score: 06/18 17:15 Eye Response: spontaneous(4). Verbal Response: oriented(5). Motor Response: obeys bp commands(6). Total: 15. 17:47 Eye Response: spontaneous(4). Verbal Response: oriented(5). Motor Response: obeys nevaeh commands(6). Total: 15. 17:51 Eye Response: spontaneous(4). Verbal Response: oriented(5). Motor Response: obeys nevaeh commands(6). Total: 15. MDM: 17:36 Patient medically screened. [facility] 17:51 Differential diagnosis: Contusion of Hematoma on Laceration of Intracranial bleed- nevaeh Concussion without LOC. Data reviewed: vital signs, nurses notes, lab test result(s), EKG, radiologic studies. Data interpreted: nurse monitoring: rate is 107 beats/min, rhythm is regular, Pulse oximetry: on room air is 97 %. Test interpretation: by ED physician or midlevel provider: ECG, plain radiologic studies. Counseling: I had a detailed discussion with the patient and/or guardian regarding: the historical points, exam findings, and any diagnostic results supporting the discharge/admit diagnosis, lab results, radiology results. 06/18 17:47 Order name: Basic Metabolic Panel; Complete Time: 18:51 [facility] 06/18 17:47 Order name: CBC with Diff; Complete Time: 18:40 [facility] 06/18 17:47 Order name: LFT's; Complete Time: 18:51 [facility] 06/18 17:47 Order name: Magnesium; Complete Time: 18:51 [facility] 06/18 17:47 Order name: NT PRO-BNP; Complete Time: 18:51 [facility] 06/18 17:47 Order name: PT-INR; Complete Time: 18:40 [facility] 06/18 17:47 Order name: Troponin HS; Complete Time: 18:51 [facility] 06/18 17:47 Order name: Urine Culture [facility] 06/18 17:47 Order name: Blood Culture Adult (2); Complete Time: 20:11 [facility] 06/18 17:53 Order name: Lactate w/ 2H reflex if indic.; Complete Time: 18:53 [facility] 06/18 17:54 Order name: Lipase; Complete Time: 18:51 [facility] 06/18 20:31 Order name: Urine Dipstick-Ancillary; Complete Time: 20:45 EDMS 06/18 17:47 Order name: XRAY Chest (1 view); Complete Time: 18:40 [facility] 06/18 22:00 Order name: SARS RAPID; Complete Time: 23:42 mw2 06/18 22:37 Order name: Urinalysis W/Microscopic; Complete Time: 23:42 [facility] 06/18 22:56 Order name: Lactate Sepsis 2 HR Follow-up; Complete Time: 23:42 [facility] 06/18 23:56 Order name: Glucose, Ancillary Testing; Complete Time: 00:00 [facility] 06/19 05:37 Order name: CBC with Automated Diff; Complete Time: 20:11 [facility] 06/19 06:11 Order name: Sedimentation Rate, Westergren; Complete Time: 20:11 [facility] 06/19 06:29 Order name: Basic Metabolic Panel; Complete Time: 20:11 [facility] 06/19 06:29 Order name: Phosphorus; Complete Time: 20:11 [facility] 06/19 06:29 Order name: Lipid Profile; Complete Time: 20:11 [facility] 06/19 06:29 Order name: Magnesium; Complete Time: 20:11 [facility] 06/19 06:29 Order name: Thyroid Stimulating Hormone; Complete Time: 20:11 [facility] 06/19 07:07 Order name: Glucose, Ancillary Testing; Complete Time: 20:11 [facility] 06/18 17:47 Order name: EKG; Complete Time: 17:48 [facility] 06/18 17:47 Order name: Cardiac monitoring; Complete Time: 17:51 [facility] 06/18 17:47 Order name: EKG - Nurse/Tech; Complete Time: 21:19 [facility] 06/18 17:47 Order name: IV Saline Lock; Complete Time: 18:54 [facility] 06/18 17:47 Order name: Labs collected and sent; Complete Time: 18:54 [facility] 06/18 17:47 Order name: O2 Per Protocol; Complete Time: 17:51 [facility] 06/18 17:47 Order name: O2 Sat Monitoring; Complete Time: 17:51 [facility] 06/18 17:47 Order name: Urine Dipstick-Ancillary (obtain specimen); Complete Time: 20:32 [facility] 06/18 17:53 Order name: US Extremity Venous W Compression Fritz; Complete Time: 19:40 [facility] 06/18 17:54 Order name: Ice pack; Complete Time: 18:53 [facility] 06/18 18:27 Order name: Bladder Scanner; Complete Time: 20:36 [facility] 06/18 19:32 Order name: Head C Spine Cap W Con; Complete Time: 20:23 [facility] 06/18 20:25 Order name: Smith; Complete Time: 21:14 06/19 08:15 Order name: US; Complete Time: 20:11 EDMS 06/19 17:01 Order name: US; Complete Time: 20:11 EDMS Administered Medications: 18:10 Drug: NS 0.9% 1000 ml Route: IV; Rate: 125 ml/hr; Site: right forearm; bp 22:31 Follow up: IV Status: Infusion continued kd3 18:30 Drug: Rocephin (cefTRIAXone) 1 grams Route: IV; Rate: per protocol; Site: right forearm;bp 20:20 Follow up: Response: No adverse reaction; IV Status: Completed infusion kd3 18:30 Drug: SOLU-Medrol (methylPrednisoLONE) 125 mg Route: IVP; Site: right forearm; bp 22:31 Follow up: Response: No adverse reaction kd3 18:30 Drug: Xopenex (levalbuterol) 3.75 mg Route: Inhalation; bp 18:30 Drug: AtroVENT (ipratropium) Aerosol 0.5 mg Route: Inhalation; bp 18:30 Drug: Pepcid (famotidine) 20 mg Route: IVP; Site: right forearm; bp 22:31 Follow up: Response: No adverse reaction kd3 21:19 Drug: NS 0.9% (30 ml/kg) 30 ml/kg Route: IV; Rate: bolus; Site: right forearm; kd3 22:31 Follow up: Response: No adverse reaction kd3 23:48 CANCELLED (Physician Discretion): Ativan (LORazepam) 0.5 mg IVP once tw5 06/19 01:29 Drug: TNK FOR STROKE - Tenecteplase 0.25 mg/kg {Co-Signature: kd3 (Mandy grewal RN).} Route: IV; Rate: per protocol; Site: right forearm; 02:38 Follow up: IV Status: Completed infusion kd3 Disposition Summary: 06/18/22 18:20 Hospitalization Ordered Hospitalization Status: Inpatient Admission nevaeh Provider: William Aceves nevaeh Condition: Fair nevaeh Problem: new nevaeh Symptoms: have improved nevaeh Bed/Room Type: Standard nevaeh Location: Telemetry/MedSurg (Inpatient)(06/20/22 01:10) cg Room Assignment: [facility](06/20/22 01:10) cg Diagnosis - UTI/ Urinary tract infection, site not specified nevaeh - Acute cystitis nevaeh - COPD/ Chronic obstructive pulmonary disease with (acute) exacerbation nevaeh - Tobacco abuse counseling nevaeh - Tobacco use nevaeh - Repeated falls nevaeh - Fall on same level, unspecified nevaeh - Unspecified injury of head, initial encounter nevaeh - Elevated white blood cell count nevaeh - Anemia, unspecified nevaeh - Unspecified kidney failure - insufficency nevaeh Forms: - Medication Reconciliation Form nevaeh - SBAR form nevaeh Signatures: Dispatcher [employer] EDAntoine Valle MD MD cha Nieto, Roman, MD MD rn Page, Corey, PA PA cp Garcia, Cindy, RN RN cg Belinda Guillen, RN RN Venkatesh Booker, RN RN jb4 Kedar Sanchez, RN RN Anai Damon tw5 Mandy Mays RN RN kd3 Elvira Clay PA-C PATim cruz4 Mandy Mays RN kd3 Corrections: (The following items were deleted from the chart) 06/18 18:00 17:48 LIPID PROFILE+C.LAB.BRZ ordered. EDMS EDMS 18:53 18:20 Telemetry/MedSurg (Inpatient) nevaeh cg 18:53 18:20 nevaeh cg 19:19 17:53 BLOOD CULTURE*+BA.LAB.BRZ ordered. EDMS EDMS 20:06 18:53 BR ER HOLD cg cg 20:06 18:53 ERHOLD- cg cg 22:37 21:20 URINALYSIS+U.LAB.BRZ ordered. EDMS EDMS 22:37 21:25 UA MICROSCOPIC+U.LAB.BRZ ordered. EDMS EDMS 23:01 20:06 cg cg 23:48 23:37 Ativan (LORazepam) 0.5 mg IVP once ordered. tw06/19 00:40 06/18 20:06 Telemetry/MedSurg (Inpatient) cg cg 06/19 00:40 06/18 23:01 219 cg cg 06/20 01:10 06/19 00:40 [facility] ER HOLD cg cg 06/20 01:10 06/19 00:40 ERHOLD- cg cg
[2022-06-18 18:29] LABS: Absolute Lymphocytes (CBC) 1.2 K/uL (0.7-4.9); Hematocrit 33.5 % (39.6-49.0); Lymphocytes % 9.3 % (15.3-44.8); MCV 88.6 fL (80-100); MPV 6.9 fL (7.6-11.3); Protime INR 1.41; RBC Red Blood Cell Count 3.78 M/uL (4.33-5.43)
--- NOTE | 2022-06-18 18:29 | RAD REPORT ---
EXAM DESCRIPTION: Janis Single View06/18/2022 6:19 pm CLINICAL HISTORY: cough COMPARISON: June 12, 2022 FINDINGS: The lungs are moderately hyperaerated. The lungs appear clear of acute infiltrate. The heart is normal size IMPRESSION: No acute abnormalities displayed
[2022-06-18] MEDS ORDERED: METHYLPREDNISOLONE 125 MG INJ ONE (18:30)
[2022-06-18] MEDS ORDERED: CEFTRIAXONE 1000 MG/VIAL ONE (18:31)
[2022-06-18] MEDS ORDERED: IPRATROPIUM BROM 0.5MG/2.5ML ONE (18:31)
[2022-06-18] MEDS ORDERED: NA CHLORIDE 0.9% 1,000 ML ONE (18:31)
[2022-06-18] MEDS ORDERED: LEVALBUTEROL 1.25 MG/3 ML NEB ONE (18:31)
[2022-06-18] MEDS ORDERED: FAMOTIDINE 20 MG/2 ML VIAL IV ONE (18:31)
[2022-06-18] MEDS ORDERED: NA CHLORIDE 0.9% 50 ML IV ONE (18:32)
[2022-06-18 18:44] LABS: Albumin 2.2 g/dL (3.4-5.0); Bilirubin Direct 0.1 mg/dL (0-0.2); Bilirubin Total 0.3 mg/dL (0.2-1.0); Magnesium 2.3 mg/dL (1.8-2.4); Potassium 4.3 mmol/L (3.5-5.1); Protein, Total 7.2 g/dL (6.4-8.2)
[2022-06-18 18:48] LABS: Troponin High Sensitivity 8.2 pg/mL (<58.9)
--- NOTE | 2022-06-18 19:16 | RAD REPORT ---
EXAM DESCRIPTION: USExtrem Venous W Compress Bil06/18/2022 7:02 pm CLINICAL HISTORY: Leg pain COMPARISON: none FINDINGS: The common femoral, superficial femoral, popliteal and posterior tibial veins bilaterally are compressible and demonstrate augmentation. Doppler demonstrates good flow. Grayscale, color and spectral analysis performed on all vessels IMPRESSION: No evidence of deep venous thrombosis involving either lower extremity.
--- NOTE | 2022-06-18 20:09 | RAD REPORT ---
EXAM DESCRIPTION: CT - Head C Spine Cap Allie Quintana - 06/18/2022 7:48 pm CLINICAL HISTORY: Head and neck injury with chest and abdominal pain status post fall. Head and neck pain . TECHNIQUE: Computed axial tomography of the head and cervical spine was obtained Computed axial tomography of the chest, abdomen and pelvis was obtained. 100 cc Isovue-300 was given intravenously coronal and sagittal reconstruction was performed. All CT scans are performed using dose optimization technique as appropriate and may include automated exposure control or mA/KV adjustment according to patient size. COMPARISON: CT abdomen 2019 FINDINGS: Left frontal scalp hematoma. An intracranial bleed is not seen. The ventricles are normal in caliber. An extra-axial fluid collect ion is not noted. Fluid within the sinuses is not seen A cervical fracture is not seen. No dislocation is seen. Spondylosis C3-4 to C6-7 resulting in marked central spinal stenosis and flattening of the spinal cord. Marked foraminal stenosis is present at s everal levels. A mediastinal hematoma is not noted. A pleural effusion is not present. A lung contusion is not seen. The liver, spleen, pancreas, adrenals, kidneys and bladder do not demonstrate an acute traumatic inju ry The bladder is markedly distended with thickened wall. It extends well above the top of the iliac cre st into abdomen. Bladder contains a 8 millimeter calculus. Moderate bilateral hydronephrosis is prese nt. Ureters are dilated to the level of the bladder. Large left inguinal hernia contains portion of nondilated transverse colon. Small to moderate right inguinal hernia contains IMPRESSION: No acute intracranial abnormality is seen A cervical fracture is not visualized. If the patient continues have symptoms to suggest intracranial /spinal cord pathology then MRI would be recommended. No acute traumatic injury involving the chest, abdomen or pelvis is seen. Marked bladder distention. Both ureters are dilated to the level of the bladder is resulting in moder ate hydronephrosis. Very large left inguinal hernia containing transverse colon
[2022-06-18 20:31] LABS: Urine Blood 2+ (Negative); Urine Glucose Negative (Negative); Urine Protein 2+ (Negative)
[2022-06-18] MEDS ORDERED: NA CHLORIDE 0.9% 2,000 ML ONE (21:15)
--- NOTE | 2022-06-18 22:01 | P.HP ---
Certification for Inpatient Patient admitted to: Inpatient With expected LOS: >2 Midnights Patient will require the following post-hospital care: None Practitioner: I am a practitioner with admitting privileges, knowledge of patient current condition, hospital course, and medical plan of care. Services: Services provided to patient in accordance with Admission requirements found in Title 42 Section 412.3 of the Code of Federal Regulations Patient History Date of Service: 06/19/22 Primary Care Provider: Damian Reason for admission: UTI, Weakness, Falls History of Present Illness: Patient is a 72-year-old male with past medical history of COPD and hypertension who presented to the ED with complaints of generalized weakness resulting in multiple falls. He was discharged from this facility 5 days ago after undergoing treatment of UTI and infectious bronchitis with levaquin. He reports getting progressively weaker throughout this week and falling multiple times, resulting a large bruised contusion on his right forehead. He denies LOC or blood thinner use. Today his labs are significant for WBC 12.8, hemoglobin 10 point, sodium 131, BUN 32, creatinine 1.0, lactic acid 2.3. Urine positive for UTI. Head CT negative. Abdominal pelvis CT showed "Marked bladder distention. Both ureters are dilated to the level of the bladder is resulting in moderate hydronephrosis." Smith was inserted and patient subsequently had 800 cc urine out. He was additionally given Rocephin, Solu-Medrol, breathing treatment, Pepcid, and sepsis fluid bundle. When I went to assess patient, he was alert and oriented x 4, communicating extensively about his history. Shortly after, at 2345, we were called into room as patient's mental status acutely changed. He was exhibiting garbled speech, minimally following commands, and abnormally moving his limbs. No lateralized deficits noted. NIHS scale unable to determine as patient would not appropriately follow commands. Code stroke was called and he was immediately taken to CT. Head CT was negative for bleed. I contacted Dr. Ontiveros who recommended TNK. Daughter consented and it was administered. Patient has improved slightly, is oriented to self only, but is still altered. He is admitted to ICU for further management. Allergies No Known Allergies Allergy (Verified 06/19/22 00:01) Home medications list reviewed: Yes Home Medications: Amlodipine Besylate [Norvasc] 1 tab PO PRN 07/22/20 Ascorbic Acid [Vitamin C*] 1,000 mg PO TID 07/22/20 Aspirin 1 tab PO DAILY 07/22/20 Atorvastatin Calcium [Lipitor*] 1 tab PO BEDTIME 07/22/20 Cholecalciferol (Vitamin D3) [Vitamin D3] 25 mcg PO DAILY 07/22/20 Cranberry 500 mg PO DAILY 07/22/20 Folic Acid 0.4 mg PO DAILY 07/22/20 Gabapentin 100 mg PO TID 07/22/20 L.acidoph,Paracasei, B.lactis [Probiotic] 1 cap PO DAILY 07/22/20 Lisinopril/Hydrochlorothiazide [Lisinopril-Hctz 10-12.5 mg Tab] 1 tab PO BID 07/22/20 Saw Argyle 1 cap PO DAILY 07/22/20 Sertraline [Zoloft*] 1 tab PO BID 07/22/20 Zinc 1 tab PO DAILY 07/22/20 Albuterol Sulfate [Albuterol Sulfate Hfa] 2 inhaler IH Q4H PRN 06/12/22 Finasteride 5 mg PO DAILY 06/12/22 Tamsulosin [Flomax*] 0.4 mg PO DAILY 06/12/22 Fluticasone/Salmeterol [Advair 250-50 Diskus] 1 each IH BID #1 kit 06/14/22 levoFLOXacin [Levaquin] 750 mg PO DAILY #7 tab 06/14/22 - Past Medical/Surgical History Diabetic: No -: COPD -: Back pain -: Anxiety -: Hypertension -: Tobacco abuse -: Recurrent UTI -: Large left inguinal hernia -: Right knee surgery Psychosocial/ Personal History: The patient is . Lives at home with his daughter. - Family History Mother -: Cancer Father -: Heart disease, Lung disease - Social History Smoking Status: Current every day smoker Alcohol use: No CD- Drugs: No Caffeine use: Yes Place of Residence: Home Review of Systems General: Weakness Gastrointestinal: Other (Dysphagia) Physical Examination - Physical Exam General: Alert, In no apparent distress HEENT: Atraumatic, PERRLA, EOMI, Sclerae nonicteric Neck: Supple, 2+ carotid pulse no bruit, No LAD, Without JVD or thyroid abnormality Respiratory: Clear to auscultation bilaterally, Normal air movement Cardiovascular: Regular rate/rhythm, Normal S1 S2 Gastrointestinal: Normal bowel sounds, No tenderness Musculoskeletal: No tenderness Integumentary: No rashes Neurological: Normal speech, Normal strength at 5/5 x4 extr, Normal tone, Normal affect - Studies Laboratory Data (last 24 hrs) 06/18/22 18:10: Lipase 84 06/18/22 18:10: PT 15.5 H, INR 1.41 06/18/22 18:10: WBC 12.80 H, Hgb 10.9 L, Hct 33.5 L, Plt Count 308 06/18/22 18:10: Sodium 131 L, Potassium 4.3, BUN 32 H, Creatinine 1.44 H, Glucose 104, Magnesium 2.3, Total Bilirubin 0.3, AST 19, ALT 44, Alkaline Phos phatase 83, Triglycerides Cancelled, Cholesterol Cancelled, HDL Cholesterol Cancelled, Cholesterol/HDL Ratio Cancelled Assessment and Plan - Problems (Diagnosis) (1) Severe sepsis Current Visit: Yes Status: Acute (2) Acute encephalopathy Current Visit: Yes Status: Acute (3) UTI (urinary tract infection) Current Visit: Yes Status: Acute Qualifiers: Urinary tract infection type: acute cystitis Hematuria presence: with hematuria Qualified Code(s): N30.01 - Acute cystitis with hematuria (4) Dysphagia Current Visit: Yes Status: Acute Qualifiers: Dysphagia type: unspecified Qualified Code(s): R13.10 - Dysphagia, unspecified (5) Generalized weakness Current Visit: Yes Status: Acute (6) Recurrent falls Current Visit: Yes Status: Acute (7) COPD (chronic obstructive pulmonary disease) Current Visit: Yes Status: Chronic Qualifiers: COPD type: unspecified COPD Qualified Code(s): J44.9 - Chronic obstructive pulmonary disease, unspecified (8) Hypertension Current Visit: Yes Status: Chronic Qualifiers: Hypertension type: primary hypertension Qualified Code(s): I10 - Essential (primary) hypertension (9) Tobacco abuse Current Visit: Yes Status: Chronic - Plan Patient is admitted ICU status following TNK administration. Head CT negative. Head/neck CTA unable to be performed as patient had CT with contrast earlier this evening. MRI not available on the weekend. Echo and carotid US ordered. Neurology consulted. Acute encephalopathy more likely secondary to UTI/severe sepsis although etiology is unclear. Patient meets severe sepsis criteria with UTI, WBC 12.4, HR > 90, and lactate 2.3. Received sepsis fluids bundle. Repeat lactate 1.8. Continue rocephin for UTI. Urine culture obtained. Previous urine culture grew mixed briana. NPO until patient passes bedside swallow. Speech and physical therapy consult. NIH Stroke scale qshift and neurological assessment [id number]. Lipid panel, TSH, ESR pending. Folic acid daily and gentle IV hydration. Monitor and replete electrolytes per protocol. SCDs for VTE prophylaxis. Full code. Discharge Plan: Home Plan to discharge in: Greater than 2 days - Advance Directives Does patient have a Living Will: No Does patient have a Durable POA for Healthcare: No - Code Status/Comfort Care Code Status Assessed: Yes Code Status: Full Code Critical Care: No Time Spent Managing Pts Care (In Minutes): 50
[2022-06-18 22:55] LABS: SARS-CoV-2 Antigen Rapid Res Negative (Negative)
[2022-06-18 22:56] LABS: Specific Gravity 1.014 (1.005-1.030); Urine Bacteria <20 /HPF (<20); Urine Bilirubin NEGATIVE (Negative); Urine Blood 2+ (Negative); Urine Clarity Turbid (Clear); Urine Color Yellow (Yellow); Urine Glucose NEGATIVE (Negative); Urine Protein 1+ (Negative); Urine RBC 21-50 /HPF (None Seen); Urine Urobilinogen Normal (Normal)
[2022-06-18] MEDS ORDERED: LORazepam 2 MG/ML VIAL ONE (23:39)
[2022-06-19] MEDS ORDERED: TENECTEPLASE 50 MG/10 ML VIAL IV ONE (00:58)
[2022-06-19] MEDS ORDERED: ALBUTEROL 2.5 MG/3 ML NEB SOL NEB PRN ×2 (04:42→18:00)
[2022-06-19] MEDS ORDERED: ONDANSETRON 4 MG/2 ML VIAL IV PRN (04:42)
[2022-06-19] MEDS: NA CHLORIDE 0.9% 1,000 ML IV SCH ×2 (04:42→18:02)
[2022-06-19 05:16] VITALS: BMI 22.8
[2022-06-19 05:31] LABS: Absolute Lymphocytes (CBC) 0.9 K/uL (0.7-4.9); Hematocrit 29.2 % (39.6-49.0); Lymphocytes % 9.1 % (15.3-44.8); MCV 88.1 fL (80-100); MPV 6.8 fL (7.6-11.3); RBC Red Blood Cell Count 3.31 M/uL (4.33-5.43)
[2022-06-19 06:04] LABS: Magnesium 2.1 mg/dL (1.8-2.4); Phosphorus 3.9 mg/dL (2.5-4.9); Potassium 3.7 mmol/L (3.5-5.1); Thyroid Stimulating Hormone 0.79 uIU/mL (0.360-3.740)
--- NOTE | 2022-06-19 08:14 | RAD REPORT ---
EXAM DESCRIPTION: US - CP - 06/19/2022 8:02 am CLINICAL HISTORY: stroke COMPARISON: No comparisons TECHNIQUE: Real-time sonographic evaluation of both carotid systems was performed. Doppler interroga tion was performed with waveform tracing bilaterally. FINDINGS: Normal high resistance waveforms are noted in both external carotid arteries. The common c arotid arteries and internal carotid arteries show normal low resistance waveforms. Hard plaque in the right proximal ICA and left proximal ICA Peak systolic and end diastolic velocity values and the ICA/CCA ratios are in the non-hemodynamically significant range. Antegrade flow seen in both vertebral arteries. IMPRESSION: Hard plaque at both proximal ICAs. No evidence of a hemodynamically significant stenosis .
[2022-06-19] MEDS: FOLIC ACID 1 MG in NA CHLORIDE 0.9% 50 ML IV SCH (09:00)
[2022-06-19] MEDS: CEFTRIAXONE 1,000 MG in NA CHLORIDE 0.9% 50 ML IVPB SCH (09:00)
[2022-06-19] MEDS ORDERED: CEFTRIAXONE 1000 MG/VIAL ONE (09:28)
[2022-06-19] MEDS ORDERED: FOLIC ACID 5 MG/ML VIAL ONE (09:29)
[2022-06-19] MEDS ORDERED: NA CHLORIDE 0.9% 50 ML IV ONE (09:29)
[2022-06-19] MEDS ORDERED: FUROSEMIDE 40 MG/4 ML VIAL ONE (10:16)
[2022-06-19] MEDS ORDERED: ACETAMINOPHEN 325 MG TABLET ONE (15:52)
[2022-06-19] MEDS: ACETAMINOPHEN 325 MG TABLET PO PRN (16:00)
--- NOTE | 2022-06-19 16:02 | P.PN ---
Date of Service: 06/19/22 Subjective: s/p tnkase overnight feels weak but ok ROS: 10 point ROS as noted above, otherwise negative Physical exam GEN: Alert, oriented, NAD HEENT: Normal conjunctiva, sclera anicteric, large left forehead contusion CV: sinus tachycaridia, no edema Pulm: Non-labored respirations on room air ABD: Soft, nontender, nondistended Integumentary: large forehead contusion on left Neuro: Normal speech, normal affect, moves all extremities garzon in place Problem List sepsis secondary to UTI Acute metabolic encephalopathy secondary to UTI Generalized weakness Recurrent falls Chronic COPD Hypertension Nicotine dependence Large left inguinal hernia, containing transverse colon Moderate bilateral hydronephrosis with marked bladder distention, a millimeter calculus in the bladder renal Presented to the ED due to generalized weakness resulting multiple falls over the last several days Recently discharged from this facility 5 days prior to this admission, treated for UTI and concern for bronchitis. Treated with Levaquin. Progressively getting weaker since being home Fell and has a large contusion on his forehead Close to midnight on 06/18, patient was witnessed to be mumbling, garbled speech, not following commands, abnormal movement of his limbs. There is concern for possible stroke. Neurology was contacted, recommended to give TNKase. The following morning on 06/19, patient's to be more close to his baseline He reports he feels he has had similar/similar episodes like last night over the last few weeks at home. Continue antibiotics CTA head ordered 24 hours after TNKase given Neurology consulted Follow-up urine culture check renal U/S will need f/u with Urology / possible inpatient consult VTE: scd's, s/p tnkase Code: full Dispo: home, ~3 days Time Spent Managing Pts Care (In Minutes): 35
--- NOTE | 2022-06-19 17:00 | RAD REPORT ---
EXAM DESCRIPTION: US - Renal Ultrasound-Complete - 06/19/2022 4:34 pm CLINICAL HISTORY: f/u b/l hydronephrosis, s/p garzon COMPARISON: Abdomen Pelvis Wo Contrast dated 07/23/2020Abdomen Pelvis Wo Contrast dated 07/23/20 20; Head C Spine Cap W Con dated 06/18/2022 FINDINGS: Both kidneys are normal in size, shape and echotexture. The right kidney measures 9.9 cm. Exophytic right renal cyst measuring 1.5 cm. No stones identified. No hydronephrosis. The left kidney measures 9.6 cm. Left lower pole renal cyst measuring 2.2 cm. Left-sided pelvicaliect asis. The bladder is decompressed via Garzon catheter. The bladder wall remains thickened. IMPRESSION: Left-sided pelvicaliectasis but no raj hydronephrosis. No right-sided hydronephrosis i dentified. Bilateral renal cysts.
[2022-06-19] MEDS ORDERED: NA CHLORIDE 0.9% 1,000 ML ONE (18:39)
[2022-06-19] MEDS: ATORVASTATIN 20 MG TAB PO SCH (21:00)
[2022-06-19] MEDS ORDERED: ATORVASTATIN 20 MG TAB ONE (21:12)
[2022-06-20] MEDS: NA CHLORIDE 0.9% 1,000 ML IV SCH ×2 (03:14→20:50)
[2022-06-20 05:52] LABS: Absolute Lymphocytes (CBC) 1.2 K/uL (0.7-4.9); Hematocrit 28.2 % (39.6-49.0); Lymphocytes % 21.1 % (15.3-44.8); MCV 88.1 fL (80-100); MPV 6.5 fL (7.6-11.3)
[2022-06-20 05:54] LABS: Magnesium 1.9 mg/dL (1.8-2.4); Potassium 3.3 mmol/L (3.5-5.1)
[2022-06-20] MEDS ORDERED: POTASSIUM 25 MEQ EFFERV TAB PO ONE (09:00)
[2022-06-20] MEDS: CEFTRIAXONE 1,000 MG in NA CHLORIDE 0.9% 50 ML IVPB SCH (09:05)
[2022-06-20] MEDS: FOLIC ACID 1 MG in NA CHLORIDE 0.9% 50 ML IV SCH (09:05)
[2022-06-20] MEDS ORDERED: ACETAMINOPHEN 500 MG TAB PO PRN (12:15)
[2022-06-20] MEDS: ACETAMINOPHEN 325 MG TABLET PO PRN (13:02)
[2022-06-20] MEDS ORDERED: POTASSIUM CL SA 10 MEQ TAB PO ONE (15:00)
--- NOTE | 2022-06-20 15:01 | RAD REPORT ---
EXAM DESCRIPTION: CT - Ct Stroke Brain Wo Cont - 06/19/2022 6:55 am ADDENDUM #1 THIS REPORT CONTAINS FINDINGS THAT MAY BE CRITICAL TO PATIENT CARE: Called, telephoned, verbal repo rt was given oral to Dr. William Aceves at 12:34 AM AMMONIA TECHNICIAN on 06/19/2022. Electronically signed by: Chetan Armijo MD 06/19/2022 12:34 AM AMMONIA TECHNICIAN End of Addendum EXAM DESCRIPTION: Ct Stroke Brain Wo Cont 06/19/2022 12:21 AM AMMONIA TECHNICIAN CLINICAL HISTORY: 72 years, Male, acute AMS COMPARISON: 06/18/2022 performed at 7:44 PM. FINDINGS: Multiple transaxial tomograms of the brain were obtained from the base of the skull to the vertex without contrast. 2-D multiplanar reformats and the coronal and sagittal plane were performed and reviewed. This exam was performed according to our departmental dose-optimization protocol, which includes auto mated exposure control, adjustment of the mA and/or kV according to patient size and/or use of iterat brynn reconstruction technique. Brain parenchyma demonstrate mild prominence of the sulci and gyri are corresponding to mild cerebral and cerebellar atrophy. There is minimal periventricular white matter changes of microvascular ische wilver. There is no midline shift and/or mass effect. There is no evidence for acute intracranial hemorr hood. Lateral ventricles and cisterns displace normal appearance. No intra or extra axial fluid c ollections were seen. The calvarium is intact with no evidence for fracture. The visualized portions of the paranasal sinuses and orbits demonstrate to be clear. Incidentally is noted presence of a left frontal area of superficial hyperdensity corresponding to site of injury/contusion. IMPRESSION: No acute intracranial hemorrhage identified. Mild brain atrophy with minimal periventricular white matter changes of microvascular ischemia. Incidentally noted presence of a left frontal area of superficial hyperdensity corresponding to site of injury/contusion. Electronically signed by: Chetan Armijo MD 06/19/2022 12:23 AM AMMONIA TECHNICIAN Due to temporary technical issues with the PACS/Fluency reporting system, reports are being signed by the in house radiologists without review as a courtesy to insure prompt reporting. The interpreting radiologist is fully responsible for the content of the report.
--- NOTE | 2022-06-20 16:58 | P.PN ---
Date of Service: 06/20/22 Subjective: no acute events overnight feels some improvement - str returning slightly no new/worsening symptoms ROS: 10 point ROS as noted above, otherwise negative Physical exam GEN: Alert, oriented, NAD HEENT: Normal conjunctiva, sclera anicteric, large left forehead contusion CV: sinus tachycaridia, no edema Pulm: Non-labored respirations on 2L NC ABD: Soft, nontender, nondistended Integumentary: large forehead contusion on left Neuro: Normal speech, normal affect, moves all extremities garzon in place Problem List sepsis secondary to UTI Acute metabolic encephalopathy secondary to UTI Generalized weakness Recurrent falls Chronic COPD Hypertension Nicotine dependence Large left inguinal hernia, containing transverse colon Moderate bilateral hydronephrosis with marked bladder distention, a millimeter calculus in the bladder renal Presented to the ED due to generalized weakness resulting multiple falls over the last several days Recently discharged from this facility 5 days prior to this admission, treated for UTI and concern for bronchitis. Treated with Levaquin. Progressively getting weaker since being home Fell and has a large contusion on his forehead Close to midnight on 06/18, patient was witnessed to be mumbling, garbled speech, not following commands, abnormal movement of his limbs. There is concern for possible stroke. Neurology was contacted, recommended to give TNKase. The following morning on 06/19, patient's to be more close to his baseline He reports he feels he has had similar/similar episodes like last night over the last few weeks at home. Continue antibiotics repeat CT s/p tnkase ok Neurology consulted start aspirin, continue statin Follow-up urine culture check renal U/S will need f/u with Urology / possible inpatient consult VTE: scd's, s/p tnkase Code: full Dispo: home, ~2 days Time Spent Managing Pts Care (In Minutes): 25
--- NOTE | 2022-06-20 17:02 | RAD REPORT ---
EXAM DESCRIPTION: CT - Head angio - 06/20/2022 6:44 am CLINICAL HISTORY: 72 years Male, stroke r/o TECHNIQUE: Helical CT axial images are obtained from the base of skull through the vertex with IV co ntrast. Multiplanar reconstruction. MIP reconstruction plus or minus 3D image processing was also p erformed. This exam was performed according to our departmental dose-optimization program, which incl udes automated exposure control, adjustment of the mA and/or kV according to patient size and/or use of iterative reconstruction technique. COMPARISON: Noncontrast CT brain performed same time. FINDINGS: Distal aspect of bilateral internal carotid arteries are normal in caliber without focal s tenosis or aneurysm. Mild atherosclerotic calcification of bilateral cavernous ICAs without significa nt narrowing. Bilateral anterior and middle cerebral arteries have a normal appearance. A patent anterior communicating artery is not seen.. Basilar artery is normal in caliber without high-grade stenosis or basilar tip aneurysm. Moderate mario alberto tebrobasilar tortuosity. Bilateral posterior cerebral arteries are identified emanating from the basi lar tip and are within normal limits. Non-visualized right PCOM. Non-visualized left PCOM. No aneurysm, branch occlusion, arteriovenous malformation or other vascular anomalies. IMPRESSION: 1. Negative CTA of the brain. Electronically signed by: Baldemar Ayala MD 06/20/2022 12:26 AM PICKLE SOLUTION MAKER Due to temporary technical issues with the PACS/Fluency reporting system, reports are being signed by the in house radiologists without review as a courtesy to insure prompt reporting. The interpreting radiologist is fully responsible for the content of the report.
--- NOTE | 2022-06-20 17:06 | RAD REPORT ---
EXAM DESCRIPTION: CT - Neck Angio - 06/20/2022 6:44 am CLINICAL HISTORY: 72 years Male, stroke r/o TECHNIQUE: Helical CT axial images are obtained from the thoracic inlet through the skull base wit h IV contrast. Multiplanar reconstruction. MIP reconstruction plus or minus 3D image processing was a lso performed. NASCET criteria using the distal ICAs for comparison were used for evaluation of carot id stenosis.This exam was performed according to our departmental dose-optimization program, which in cludes automated exposure control, adjustment of the mA and/or kV according to patient size and/or us e of iterative reconstruction technique. COMPARISON: None. FINDINGS: RIGHT CAROTID: Mild atherosclerotic changes of the carotid bifurcation and proximal ICA. T here is 20% focal stenosis ICA at the origin. Remainder of the cervical course of the internal caroti d artery is within normal limits without focal stenosis, aneurysm, or dissection. Normal CCA. Origin and proximal visualized branches of the external carotid artery appears normal. LEFT CAROTID: Mild atherosclerotic changes of the carotid bifurcation and proximal ICA. There is 35% short segment stenosis of the ICA beginning at the origin extending by 6 mm. Remainder of the cervica l course of the internal carotid artery is within normal limits without focal stenosis, aneurysm, or dissection. Normal CCA. Origin and proximal visualized branches of the external carotid artery appear s normal. VERTEBRAL: Bilateral vertebral arteries have a normal appearance with left dominance. OTHER: Noncontributory. SOFT TISSUES: Unremarkable. IMPRESSION: 1. Left ICA 35% short segment stenosis beginning at the origin extending by 6 mm. 2. Right ICA 20% focal stenosis at the origin. 3. Otherwise, negative CTA of the neck. Electronically signed by: Baldemar Ayala MD 06/20/2022 12:16 AM [facility] Due to temporary technical issues with the PACS/Fluency reporting system, reports are being signed by the in house radiologists without review as a courtesy to insure prompt reporting. The interpreting radiologist is fully responsible for the content of the report.
--- NOTE | 2022-06-20 17:10 | RAD REPORT ---
EXAM DESCRIPTION: CT - Head Brain Wo Cont - 06/20/2022 6:43 am CLINICAL HISTORY: 72 years Male, 24hrs post tnk, r/o bleed TECHNIQUE: Helical CT axial images are obtained from the base of skull through the vertex without IV contrast. Multiplanar reconstruction. This exam was performed according to our departmental dose-opt imization program, which includes automated exposure control, adjustment of the mA and/or kV accordin g to patient size and/or use of iterative reconstruction technique. COMPARISON: Noncontrast CT brain performed one day prior FINDINGS: BRAIN: No infarcts. No parenchymal hemorrhage, intra-axial mass, mass effect, or midline s hift. No abnormal extra-axial fluid collections. VENTRICLES: Ventricles are normal in size and configuration. No hydrocephalus. CALVARIUM: Moderate left frontal scalp hematoma. Bone windows show no skull fracture or calvarial les ions. PARANASAL SINUSES AND MASTOIDS: Visualized paranasal sinuses are clear. Mastoid air cells are clear . IMPRESSION: 1. Moderate left frontal scalp hematoma. 2. No acute intracranial disease. Electronically signed by: Baldemar Ayala MD 06/20/2022 12:08 AM FEED MILL TENDER Due to temporary technical issues with the PACS/Fluency reporting system, reports are being signed by the in house radiologists without review as a courtesy to insure prompt reporting. The interpreting radiologist is fully responsible for the content of the report.
[2022-06-20] MEDS: ATORVASTATIN 20 MG TAB PO SCH (20:50)
[2022-06-21 04:04] LABS: Hematocrit 30.1 % (39.6-49.0); MCV 88.2 fL (80-100); MPV 6.6 fL (7.6-11.3); RBC Red Blood Cell Count 3.41 M/uL (4.33-5.43)
[2022-06-21 04:16] LABS: Albumin 1.8 g/dL (3.4-5.0); Bilirubin Total 0.2 mg/dL (0.2-1.0); Magnesium 1.6 mg/dL (1.8-2.4); Potassium 3.6 mmol/L (3.5-5.1); Protein, Total 5.7 g/dL (6.4-8.2)
[2022-06-21] MEDS: FOLIC ACID 1 MG in NA CHLORIDE 0.9% 50 ML IV SCH (08:54)
[2022-06-21] MEDS: NA CHLORIDE 0.9% 1,000 ML IV SCH ×2 (08:54→23:41)
[2022-06-21] MEDS: ASPIRIN EC 81 MG TAB PO SCH (08:55)
[2022-06-21] MEDS: CEFTRIAXONE 1,000 MG in NA CHLORIDE 0.9% 50 ML IVPB SCH (08:55)
[2022-06-21] MEDS ORDERED: POTASSIUM CL SA 10 MEQ TAB PO ONE (09:00)
[2022-06-21 09:56] VITALS: O2SAT 96
--- NOTE | 2022-06-21 10:29 | RAD REPORT ---
EXAM DESCRIPTION: MRI - Brain Wo Cont - 06/21/2022 8:36 am CLINICAL HISTORY: sudden AMS Headache, drowsiness, CVA symptomology COMPARISON: MRA Head Wo Cont dated 06/21/2022; MRA Neck W/Wo Cont dated 06/21/2022 TECHNIQUE: Multi-sequence, multiplanar MR imaging of the brain was performed without contrast. FINDINGS: No intracranial hemorrhage, hydrocephalus or extra-axial fluid collections.Mild periventri cular and deep white matter chronic microvascular ischemic changes. No edema or shift of midline stru ctures. No findings to suspect brain mass. DWI is negative for acute CVA. Midline structures are normally formed. Mastoid air cells and paranasal sinuses are clear. IMPRESSION: Negative for acute CVA or other acute intracranial abnormality.
--- NOTE | 2022-06-21 10:45 | RAD REPORT ---
EXAM DESCRIPTION: MRI - MRA Head Wo Cont - 06/21/2022 8:36 am CLINICAL HISTORY: sudden AMS CVA COMPARISON: Head Brain Wo Cont dated 06/19/2022 FINDINGS: 3D noncontrast [id number] MR angiography of the [place] was performed. No aneurysm, flow-limiting stenosis or vascular malformation is seen. Forward flow seen in left-sided dominant vertebral artery. The visualized dural venous sinuses appear patent. IMPRESSION: No significant flow abnormality of the [place] is identified.
--- NOTE | 2022-06-21 10:48 | RAD REPORT ---
EXAM DESCRIPTION: MRI - MRA Neck W/Wo Cont - 06/21/2022 8:35 am CLINICAL HISTORY: sudden AMS Headache, drowsiness COMPARISON: No comparisons FINDINGS: Contrast enhance 2D [id number] MR angiography of the neck vessels was performed. A left aortic arch is identified. Normal origin pattern of the great vessels is seen. Both common carotid arteries are patent. There is moderate stenosis of the proximal right internal ca rotid artery estimated at 50-70% based on NASCET criteria. There is moderate stenosis also noted the proximal left internal carotid artery estimated at 80% based on NASCET criteria. Antegrade flow is seen in both vertebral arteries. IMPRESSION: Bilateral proximal internal carotid artery stenosis is present, greater on the left as d etailed.
--- NOTE | 2022-06-21 12:55 | EKG ---
Test Date: 2022-06-18 Test Time: 20:40:13 Senior Games Technician: RV MEASUREMENT RESULTS: Intervals: Rate: 103 ND: 132 QRSD: 124 QT: 374 QTc: 489 [place]: P: 76 ND: 132 QRS: 78 T: 68 INTERPRETIVE STATEMENTS: Sinus tachycardia Right bundle branch block Abnormal ECG Compared to ECG 06/12/2022 15:56:14 Right bundle-branch block now present Atrial abnormality no longer present Right-axis deviation no longer present Incomplete right bundle-branch block no longer present Electronically Signed On 06-21-22 12:50:52 SENIOR PROCESS ENGINEER by Juan Mendoza
--- NOTE | 2022-06-21 17:31 | P.PN ---
Date of Service: 06/21/22 Subjective: no acute events overnight feels some improvement - str returning slightly no new/worsening symptoms ROS: 10 point ROS as noted above, otherwise negative Physical exam GEN: Alert, oriented, NAD HEENT: Normal conjunctiva, sclera anicteric, large left forehead contusion CV: sinus tachycaridia, no edema Pulm: Non-labored respirations on RA ABD: Soft, nontender, nondistended Integumentary: large forehead contusion on left Neuro: Normal speech, normal affect, moves all extremities garzon in place Problem List sepsis secondary to UTI Acute metabolic encephalopathy secondary to UTI Generalized weakness Recurrent falls Chronic COPD Hypertension Nicotine dependence Large left inguinal hernia, containing transverse colon Moderate bilateral hydronephrosis with marked bladder distention, 8 millimeter calculus in the bladder renal Presented to the ED due to generalized weakness resulting multiple falls over the last several days Recently discharged from this facility 5 days prior to this admission, treated for UTI and concern for bronchitis. Treated with Levaquin. Progressively getting weaker since being home Fell and has a large contusion on his forehead Close to midnight on 06/18, patient was witnessed to be mumbling, garbled speech, not following commands, abnormal movement of his limbs. There is concern for possible stroke. Neurology was contacted, recommended to give TNKase. The following morning on 06/19, patient's to be more close to his baseline He reports he feels he has had similar/similar episodes like last night over the last few weeks at home. Continue antibiotics f/u cultures, prelim mixed briana renal retention on presentation with 900ml, stone seen in bladder Urology consulted pt will f/u in office in ~[address] s/p tnkase ok Neurology consulted MRI today start aspirin, continue statin Code: full Dispo: home, likely tomorrow Time Spent Managing Pts Care (In Minutes): 25
[2022-06-21] MEDS: ATORVASTATIN 20 MG TAB PO SCH (20:15)
--- NOTE | 2022-06-21 22:41 | CON ---
Reason For Consultation: Consultation called because of diffuse weakness. History Of Present Illness: Mr. Everett is a 72-year-old patient with repeated urinary tract infections , hypertension, chronic back pain, tobacco abuse, and a large left inguinal hernia who comes to [facility] with more confusion, diffuse weakness, and multiple falls. Apparently, he was at the hospital about 5 days prior to his admission on the with similar symptoms and was diagnosed with urinary tract infection and bronchitis. He was treated with Levaquin, but did not regain strength a nd had multiple falls. As a result of one of the falls, he hit the right forehead and arm and had a large bruise on the right forehead as he was on antiplatelet medications. His hemoglobin was 10 and white blood cell count 12.8 in the emergency room. Creatinine 1. Lactic acid was 3.6 with urine pos itive for urinary tract infection. Head CT scan negative for any acute ischemic or hemorrhagic fischer e. He did have significant hydronephrosis for which I inserted Smith catheter and released 800 cc of urine. He was treated with Rocephin and Solu-Medrol and received breathing treatments along with pr oton-pump inhibitor, Pepcid and admitted with plan to rule out stroke. When I saw him, he was actual ly interactive, responded appropriately to all questions, aware of where he was, and had no evidence of confusion and no focal weakness was found in the face, arm, or leg. He did have MRI of the brain done earlier that showed no acute ischemic or hemorrhagic stroke. Mild small vessel ischemic disease was noted. MRA of the head and neck identified no significant large vessel occlusion that required intervention and no significant abnormalities identified in the [place]. In his neck, there was bilateral proximal internal carotid artery stenosis present. The left internal carotid artery w as estimated at 80% and the right estimated at 50% to 70%. In terms of his statin anticholesterol me dication, he has been on Lipitor 40 mg at bedtime as well as aspirin 81 mg daily and folic acid 1 mg daily. Past Medical History: As noted. Allergies: NO KNOWN DRUG ALLERGIES. Medications: At home are Norvasc daily, vitamin C 1000 mg daily, aspirin 81 mg daily, Lipitor 40 mg at bedtime, vitamin D 2.5 mg daily, cranberry 500 mg daily, folic acid 0.4 mg daily, gabapentin 100 m g 3 times a day, probiotics daily, lisinopril hydrochlorothiazide 10/12.5 twice daily, Saw [place] 1 capsule daily, Zoloft 10 mg daily, zinc daily, albuterol nebulizer 2 puffs every 4 hours, finasterid e 5 mg daily, Flomax 0.4 mg daily, Advair Diskus 250/50 one twice daily and Levaquin 750 mg completed 7 days. Past Surgical History: Right knee surgery. Social History: Patient lives with his daughter. He is . Family History: Positive for cancer in mother and heart disease and lung disease in father. Social History: Smokes tobacco daily and drinks caffeinated beverages. Denies alcohol or IV drug us e. Review of Systems: Diffuse weakness, some myalgias, arthralgias, and bruising on the left forehead from a fall. No sign ificant headache. No dysphagia. Mild dysarthria. Otherwise, some bruising in the lower and upper e xtremities. No active psychiatric issues. Mild urinary retention. No gastrointestinal issues. Physical Examination: Vital Signs: Blood pressure 134/84, pulse 94, temperature 98.2, and oxygen saturation 97% on room ai r. Weight 155 pounds, height 5 feet 9 inches, BMI 22.9. General: Mr. Everett is resting in bed. He is in no acute distress. He does have a significant bruise on the left forehead and also left upper and lower extremity bruising noted. HEENT: Sclerae are anicteric. Oropharynx is moist. Neck: Supple. Chest: Clear. Heart: Regular. Extremities: Trace edema in lower extremities. Neurological: He is alert and oriented to situation, place, and person. He follows commands appropr iately. No obvious cranial nerve deficits. No focal deficits in terms of strength in the upper and lower extremities bilaterally. No sensory loss except stocking-glove loss and symmetric. Reflexes s ymmetric and 1+. Coordination slow, but intact in upper and lower extremities. In terms of the gait , he is able to ambulate 250 feet with a rolling walker with just contact guard assistance being requ ired. Assessment: Mr. Everett is a 72-year-old patient with multiple urinary tract infections. He apparently had a recent infection that led him to diffuse weakness and requiring IV hydration and antibiotics. He has no evidence of focal neurological deficits. He does have significant, around 80% blockage not ed in the left internal carotid artery and around 50% to 70%, some blockage in the right internal car otid artery. He is on his statin. He does have hypertension. Plan: 1.The patient should have on an outpatient basis the high-grade stenosis further evaluated with a 4 vessel angiogram of the carotid arteries for a stent placement. In the meantime, continue aspirin, P lavix, folic acid, and statin. 2.He does have some debility and could benefit from outpatient physical therapy, especially if his c omorbid medical conditions are stable, which they appear to be at this point. Note, his carotid tiki ry ultrasound did not show any evidence of hemodynamically significant stenosis despite finding of th e MRA. 3.Patient may be discharged home and follow up in Dr. Ontiveros's clinic within the month. ALMAS Voice ID: [id number] Report ID: [id number]
[2022-06-22 04:04] LABS: Magnesium 1.7 mg/dL (1.8-2.4); Potassium 3.5 mmol/L (3.5-5.1)
--- NOTE | 2022-06-22 06:49 | ECHO ---
HEIGHT: 5 ft 9 in WEIGHT: 155 lb 0 oz DATE OF STUDY: 06/21/[address]: Elvira Clay 2-DIMENSIONAL: YES M.MODE: YES DOPPLER: YES COLOR FLOW: YES TDS: PORTABLE: YES DEFINITY: BUBBLE STUDY: DIAGNOSIS: STROKE CARDIAC HISTORY: CATHERIZATION: SURGERY: PROSTHETIC VALVE: PACEMAKER: MEASUREMENTS (cm) DIASTOLIC (NORMALS) SYSTOLIC (NORMALS) IVSd 1.0 (0.6-1.2) LA Diam 3.3 (1.9-4.0) LVEF 67% LVIDd 4.0 (3.5-5.7) LVIDs 2.5 (2.0-3.5) %FS 37% LVPWd 1.0 (0.6-1.2) Ao Diam 3.1 (2.0-3.7) 2 DIMENSIONAL ASSESSMENT: RIGHT ATRIUM: NORMAL LEFT ATRIUM: NORMAL RIGHT VENTRICLE: NORMAL LEFT VENTRICLE: NORMAL TRICUSPID VALVE: NORMAL MITRAL VALVE: MILD MITRAL REGURGITATION PULMONIC VALVE: NORMAL AORTIC VALVE: NORMAL PERICARDIAL EFFUSION: SMALL AORTIC ROOT: NORMAL LEFT VENTRICULAR WALL MOTION: NORMAL DOPPLER/COLOR FLOW: MILD MITRAL REGURGITATION COMMENTS: 1. NORMAL LEFT VENTRICULAR EJECTION FRACTION 60-65% WITH NORMAL WALL MOTION 2. MILD MITRAL REGURGITATION 3. SMALL PERICARDIAL EFFUSION TECHNOLOGIST: TED GREEN
[2022-06-22] MEDS ORDERED: MAGNESIUM SULFATE 1 gm IVPB 1 GM/100 ML BAG IV ONE (09:00)
[2022-06-22] MEDS ORDERED: POTASSIUM CL SA 10 MEQ TAB PO ONE (09:00)
[2022-06-22] MEDS: CEFTRIAXONE 1,000 MG in NA CHLORIDE 0.9% 50 ML IVPB SCH (10:26)
[2022-06-22] MEDS: ASPIRIN EC 81 MG TAB PO SCH (10:27)
[2022-06-22] MEDS: FOLIC ACID 1 MG in NA CHLORIDE 0.9% 50 ML IV SCH (10:29)
[2022-06-22 12:02] VITALS: BP 98/69; TEMP 98
--- NOTE | 2022-06-22 12:57 | P.DS ---
Admission Date: 06/18/22 Discharge Date: 06/22/22 Primary Care Provider: Damian Disposition: DC HOME/HOME HEALTH CARE Discharge Condition: FAIR Reason for Admission: UTI, Weakness, Falls Brief History of Present Illness: Patient is a 72-year-old male with past medical history of COPD and hypertension who presented to the ED with complaints of generalized weakness resulting in multiple falls. He was discharged from this facility 5 days ago after undergoing treatment of UTI and infectious bronchitis with levaquin. He reports getting progressively weaker throughout this week and falling multiple times, resulting a large bruised contusion on his right forehead. He denied LOC or blood thinner use. His labs in the ED were significant for WBC 12.8, hemoglobin 10 point, sodium 131, BUN 32, creatinine 1.0, lactic acid 2.3. Urine positive for UTI. Head CT negative. Abdominal pelvis CT showed "Marked bladder distention. Both ureters are dilated to the level of the bladder is resulting in moderate hydronephrosis." Smith was inserted and patient subsequently had 800 cc urine out. He was additionally given Rocephin, Solu-Medrol, breathing treatment, Pepcid, and sepsis fluid bundle. Patient developed sudden onset garbled speech and confusion, no focal motor deficits noted. Stroke protocol was called, Dr. Ontiveros was informed recommended TNKase. Patient given TNKase. Head CT was negative. He was admitted to ICU for further management. Hospital Course: Diagnosis sepsis secondary to UTI Acute metabolic encephalopathy secondary to UTI Generalized weakness Recurrent falls Chronic COPD Hypertension Nicotine dependence Large left inguinal hernia, containing transverse colon Moderate bilateral hydronephrosis with marked bladder distention, 8 millimeter calculus in the bladder renal Patient admitted to the medical floor and treated with IV Rocephin. UA suggested UTI. Urine culture showed mixed growth. He also had urinary retention with stone in the bladder. Imaging also demonstrated markedly distended bladder and bilateral moderate hydronephrosis. Patient suspected to have had a stroke. CT head negative for acute stroke. MRI of the brain did not show any acute CVA. MRA of the neck showed significant carotid artery stenosis. Neurology recommended four-vessel angiogram as an outpatient He reports he feels he has had similar/similar episodes like last night over the last few weeks at home. Urology consulted. Dr. Orozco will see patient within 2 weeks in his office Repeat CT s/p tnkase ok Patient treated with aspirin and statin. Patient seen and evaluated by PT. he ambulated 250 feet with a rolling walker. Patient deemed stable for discharge. He is discharged with home health for PT and custodial. Vital Signs/Physical Exam: Temp Pulse Resp BP Pulse Ox 98 F 110 H 20 98/69 99 06/22/22 12:00 06/22/22 12:00 06/22/22 12:00 06/22/22 12:00 06/22/22 12:00 General: Alert, In no apparent distress HEENT: Mucous membr. moist/pink Neck: JVD not distended Respiratory: Clear to auscultation bilaterally, Normal air movement Cardiovascular: No edema, Regular rate/rhythm, Normal S1 S2 Gastrointestinal: Soft and benign, Non-distended Musculoskeletal: No tenderness Integumentary: Other (Bruise-left forehead) Neurological: Other (No focal motor deficit) Laboratory Data at Discharge: WBC 5.40 K/uL (4.3-10.9) 06/21/22 03:04 Hgb 10.0 g/dL (13.6-17.9) L 06/21/22 03:04 Hct 30.1 % (39.6-49.0) L 06/21/22 03:04 Plt Count 281 K/uL (152-406) 06/21/22 03:04 PT 15.5 SECONDS (9.5-12.5) H 06/18/22 18:10 INR 1.41 06/18/22 18:10 Sodium 135 mmol/L (136-145) L 06/22/22 03:27 Potassium 3.5 mmol/L (3.5-5.1) 06/22/22 03:27 BUN 8 mg/dL (7-18) 06/22/22 03:27 Creatinine 0.52 mg/dL (0.55-1.3) L 06/22/22 03:27 Glucose 106 mg/dL (74-106) 06/22/22 03:27 Phosphorus 3.9 mg/dL (2.5-4.9) 06/19/22 05:17 Magnesium 1.7 mg/dL (1.8-2.4) L 06/22/22 03:27 Total Bilirubin 0.2 mg/dL (0.2-1.0) 06/21/22 03:04 AST 21 U/L (15-37) 06/21/22 03:04 ALT 41 U/L (12-78) 06/21/22 03:04 Alkaline Phosphatase 76 U/L (45-117) 06/21/22 03:04 Triglycerides 76 mg/dL (<150) 06/19/22 05:17 Cholesterol 101 mg/dL (<200) 06/19/22 05:17 HDL Cholesterol 44 mg/dL (40-60) 06/19/22 05:17 Cholesterol/HDL Ratio 2.30 06/19/22 05:17 Lipase 84 U/L (73-393) 06/18/22 18:10 Home Medications: Ascorbic Acid [Vitamin C*] 1,000 mg PO TID 07/22/20 Aspirin 1 tab PO DAILY 07/22/20 Atorvastatin Calcium [Lipitor*] 1 tab PO BEDTIME 07/22/20 Cholecalciferol (Vitamin D3) [Vitamin D3] 25 mcg PO DAILY 07/22/20 Cranberry 500 mg PO DAILY 07/22/20 Folic Acid 0.4 mg PO DAILY 07/22/20 L.acidoph,Paracasei, B.lactis [Probiotic] 1 cap PO DAILY 07/22/20 Saw Holcomb 1 cap PO DAILY 07/22/20 Sertraline [Zoloft*] 1 tab PO BID 07/22/20 Zinc 1 tab PO DAILY 07/22/20 Albuterol Sulfate [Albuterol Sulfate Hfa] 2 inhaler IH Q4H PRN 06/12/22 Finasteride 5 mg PO DAILY 06/12/22 Tamsulosin [Flomax*] 0.4 mg PO DAILY 06/12/22 Fluticasone/Salmeterol [Advair 250-50 Diskus] 1 each IH BID #1 kit 06/14/22 Cefpodoxime Proxetil 200 mg PO BID #40 tab 06/22/22 New Medications: Cefpodoxime Proxetil 200 mg PO BID #40 tab Diet: AHA Activity: Ad jo Followup: Landon Salgado MD [Primary Care Provider] - 1-2 Weeks Lauri Orozco [ACTIVE - CAN ADMIT] - 1-2 Weeks Alexx Ontiveros MD [ASSOCIATE-ACTIVE - CAN ADMIT] - (Within 1 month) Time spent managing pt's care (in minutes): 38
--- NOTE | 2022-06-23 10:09 | CON ---
Reason For Consultation: Urinary retention with bilateral hydronephrosis. History Of Present Illness: Mr. Everett is a 72-year-old gentleman who presented to the emergency [facility] with complaints of generalized weakness resulting in a fall that caused him to hit his head and face. He was previously discharged from [facility] several days ago after undergoing treatment for urinary tract infection as well as infectious bronchitis with Levaquin, but he reported getting p rogressively weaker through the weak and falling multiple times. Laboratory Data: His labs on admission were significant for mildly elevated white count of 12.8, sod ium of 131, BUN of 32, and creatinine of 1.0, with a lactate of 2.3. His urine was suspicious and an abdomen and pelvis CT scan showed marked bladder distention with both ureters dilated to the level o f the bladder resulting in moderate hydroureteronephrosis. A Smith catheter was inserted and they re cord the patient drained 800 cc of urine. He was treated with Rocephin and was admitted. Subsequent ly, a renal ultrasound was performed on 06/19/2022 and revealed a decompressed bladder with a Smith c atheter in place and both kidneys normal in size, shape, and echotexture with an exophytic right arturo l cyst measuring 1.5 cm and left lower pole renal cyst measuring 2.2 cm with residual left-sided pelv ocaliectasis, but no raj hydronephrosis. The right-sided hydronephrosis had completely resolved. Today, he describes having had a history of frequent urinary tract infections about once per year ove r the last 5 to 6 years. He has been on Flomax and finasteride for about 1 to 2 years, which he does feel has helped his urinary symptoms, but these infections have occurred despite. He has not sought urologic followup in the last couple of years. Past Medical History: COPD, hypertension. Allergies: NO KNOWN DRUG ALLERGIES. Family History: He denies any history of urologic malignancy. Social History: He is an active smoker of 55 years, 1 to 2 packs per day, but now smokes less than a pack per day. Physical Examination: General: The patient is alert, awake, and oriented x3, in no acute distress. There is no dyspnea or sign of respiratory distress. He is comfortable and well-appearing, lying in the hospital bed. Abdomen: Soft, nontender, nondistended. Genitalia: Circumcised without lesion, orthotopic meatus patent with urethral Smith catheter in plac e, draining clear yellow urine. The phallus is significantly retracted partly due to a massive bilat eral scrotal swelling, potentially consistent with hydroceles versus an inguinal hernia. No Lilly sign or lower extremity swelling. Neurologic consultation with Dr. Ontiveros was performed, and recommendation was for imaging to be per formed to evaluate the neurologic deficits. On 06/18/2022, CT of the head and spine was performed without acute intracranial abnormality seen. S pondylosis, C3, C4-C6, C7 resulted in marked central spinal stenosis and flattening of the spinal cor d. Marked foraminal stenosis is present at several levels. CT scan also apparently extended through the pelvis and did identify the presence of an 8 mm calculus as well. Assessment And Recommendations: This is a 72-year-old gentleman with chronic obstructive pulmonary d isease and hypertension, who presented with generalized weakness resulting in multiple falls, associa trae with acute urinary retention in the setting of bothersome LUT due to BPH for several years with r ecurrent urinary tract infections, resulting in bilateral hydroureteronephrosis, resolved with a Fole y catheter in place, but with an 8 mm calculus noted within the bladder in the setting of multiple ma rked levels of foraminal stenosis as well as spondylosis C3-4 to C6-7, resulting in marked cervical o r marked central spinal stenosis and flattening of the spinal cord. Given the neurologic findings, it is certainly possible the flattening of the cord is affecting his b ladder function potentially resulting in lack of contractility or potentially discoordination of void ing. As a result, the patient should seek continued neurologic evaluation and potentially neurosurgi kayla consultation and management. Meanwhile, I would recommend follow up in the Urology Clinic in 10 to 14 days for a voiding trial and cystoscopy as soon as can be arranged. He very likely will requir e urodynamics evaluation to assess the detrusor function before any surgical therapy could be conside red and most likely will require neurosurgical management of his spinal cord compromise. GLENN/MODL Voice ID: [id number] Report ID: [id number]
== END 2022-06-22 14:10 | disposition home health service (06) | DRG 871 ==
LOC: ER 16:58 → 2ND 23:19 → ERHOLD 06-19 01:41 → 4TH 06-20 02:08
PROVIDERS: ADMIT Hospitalist; ATTEND Internal Medicine
DX: A41.9 Sepsis, unspecified organism (principal); G93.41 Metabolic encephalopathy; N13.6 Pyonephrosis; R65.20 Severe sepsis without septic shock; J44.9 Chronic obstructive pulmonary disease, unspecified; D64.9 Anemia, unspecified; I10 Essential (primary) hypertension; G89.29 Other chronic pain; M54.9 Dorsalgia, unspecified; K40.90 Unilateral inguinal hernia, without obstruction or gangrene, not specified as recurrent; I65.29 Occlusion and stenosis of unspecified carotid artery; S00.83XA Contusion of other part of head, initial encounter; F17.210 Nicotine dependence, cigarettes, uncomplicated; R13.10 Dysphagia, unspecified; R41.0 Disorientation, unspecified; Z71.6 Tobacco abuse counseling; Z79.02 Long term (current) use of antithrombotics/antiplatelets; Z79.82 Long term (current) use of aspirin; Z91.81 History of falling; Z79.899 Other long term (current) drug therapy; Z20.822 Contact with and (suspected) exposure to COVID-19; W18.30XA Fall on same level, unspecified, initial encounter; Y93.9 Activity, unspecified; Y92.9 Unspecified place or not applicable
CPT/HCPCS: 36415; 51702; 70450; 70496; 70498; 70544; 70549; 70551; 71045; 71260; 72125; 74177; 76770; 80048; 80053; 80061; 80076; 81001; 81003; 82947; 83605; 83690; 83735; 83880; 84100; 84132; 84443; 84484; 85025; 85027; 85610; 85652; 87040; 87086; 87088; 87811; 92523; 92977; 93005; 93306; 93880; 93970; 94760; 96361; 96365; 96366; 96367; 96375; 97110; 97116; 97161; 99285; A9577; J1940; J2930; J3101; J3475; J7030; J7614; J7644; Q9967

== ENCOUNTER 2024-04-26 15:06 | Inpatient (IN) | payer OTHER ==
--- OUTSIDE RECORDS SUMMARY | 2024-04-26 15:09 | XMS REPORT | Continuity of Care Document ---
Author Name Unknown Address [address] [place] [address] [facility] thconnect Address [address] [place] [address] Care Team Providers Care Soft Water Mechanic Name Role Phone Landon Salgado Primary Care Physician [phone] Nicholas Valverde Attending Clinician Unavailable Estefanía Corbin Attending Clinician [phone] Unknown, Attending Attending Clinician Unavailab ESTEFANÍA Yepez Attending Clinician Unavailable Doctor Unassigned, [place] Attending Clinician U Lucho Whitman MD Attending Clinician [phone] [place] Attending Clinician Unavailable ESTEBAN Attending Clinician Unavailable ESTEBAN Admitting Clinician Unavailable Payers Payer Name Policy Type Policy Number Effective Date Expirati on Date Source [facility] 53 [id number] [facility] Problems Condition Name Condition Details Condition Category Status Onset Date Resolution Date Last Treatment Date Treating Clinician Comments Source [id number] BPH loc w urin obs/LUTS Problem [facility] [id number] Urinary retention Problem [facility] [id number] Bladder calculus Problem [facility] Allergies, Adverse Reactions, Alerts Allergy Name Allergy Type Status Severity Reaction(s) Onset Date Inactive Date Treating Clinician Comments Source NO KNOWN ALLERGIE S Drug Class Active [facility] Social History Social Habit Start Date Stop Date Quantity Comments Source Gender identity [facility] Sexual [facility] History of tobacco use Cigarette Smoker [facility] History of Social function 2023-05-31 00:00:00 2023-05-31 00:00:00 [facility] Sex Assigned At 1950 00:00:00 1950 00:00:00 [facility] Smoking Status Start Date Stop Date Source Smokes tobacco daily 2023-05-31 00:00:00 [facility] Tobacco smoking consumption unknown [facility] Medications Ordered Medication Name Filled Medication Name Start Date Stop Date Current Medication? Ordering Clinician Indication Dosage Frequency Signature (SIG) Comments Components Source cefdinir 300 mg capsule 2022-07 00:00: 00 06-11 05:59 :00 No [id number] 600mg Take 2 capsules by mouth in the morning for 10 days. [facility] levoFLOXaci n 750 mg tablet 01-18 00:00: 00 01-26 04:59 :00 No [id number] 750mg Take 1 tablet by mouth every 24 (twenty-fo ur) hours for 7 days. [facility] albuterol 90 mcg/actuati on inhaler 12-29 00:00: 00 Yes 2{puff} Inhale 2 Puffs every 4 (four) hours as needed. [facility] WIXELA INHUB 250-50 mcg/dose inhalation disk 12-28 00:00: 00 Yes [facility] tamsulosin 0.4 mg 24 hr capsule 12-28 00:00: 00 Yes TAKE 1 CAPSULE BY MOUTH EVERY 24 HOURS FOR 90 DAYS [facility] gabapentin 100 mg capsule 12-28 00:00: 00 Yes TAKE 2 CAPSULES BY MOUTH TWICE DAILY [facility] SERTraline 100 mg tablet 12-28 00:00: 00 Yes 100mg Take 1 tablet by mouth in the morning. [facility] Lisinopril- hydroCHLORO thiazide 10-12.5 MG Lisinopril- hydroCHLORO thiazide 10-12.5 MG No 1{table t} QD Lisinopril -hydroCHLO ROthiazide 10-12.5 MG amLODIPine Besylate 2.5 MG amLODIPine Besylate 2.5 MG No 1{table t} QD amLODIPine Besylate 2.5 MG Lipitor 10 MG Lipitor 10 MG No 1{table t} QD Lipitor 10 MG Aspirin 81 81 MG Aspirin 81 81 MG No 1{table t} QD Aspirin 81 81 MG Vital Signs Vital Name Observation Time Observation Value Comments S ource Systolic blood pressure 2023-05-31 17:35:00 158 mm[Hg] [facility] Diastolic blood pressure 2023-05-31 17:35:00 83 mm[Hg] [facility] Heart rate 2023-05-31 17:34:00 84 /min [facility] Body temperature 2023-05-31 17:34:00 36.89 [place] [facility] Respiratory rate 2023-05-31 17:34:00 24 /min [facility] Body height 2023-05-31 17:34:00 175.3 cm [facility] Body weight 2023-05-31 17:34:00 71.578 kg [facility] BMI 2023-05-31 17:34:00 23.30 kg/m2 [facility] Oxygen saturation in Arterial blood by Pulse oximetry 2023-05-31 17:34:00 95 /min [facility] Systolic blood pressure 2023-01-18 20:16:00 139 mm[Hg] [facility] Diastolic blood pressure 2023-01-18 20:16:00 87 mm[Hg] [facility] Heart rate 2023-01-18 20:15:00 101 /min [facility] Body temperature 2023-01-18 20:15:00 36.72 [place] [facility] Respiratory rate 2023-01-18 20:15:00 16 /min [facility] Body height 2023-01-18 20:15:00 175.3 cm [facility] Body weight 2023-01-18 20:15:00 69.854 kg [facility] BMI 2023-01-18 20:15:00 22.74 kg/m2 [facility] Oxygen saturation in Arterial blood by Pulse oximetry 2023-01-18 20:15:00 96 /min [facility] height 2022-07-08 16:30:00 69 [in_i] [facility] weight 2022-07-08 16:30:00 143.6 [lb_av] Co [facility] temperature 2022-07-08 16:30:00 97.5 [degF] Com mon [facility] bmi 2022-07-08 16:30:00 21.2 kg/m2 [facility] oximetry 2022-07-08 16:30:00 96 % [facility] respiratory rate 2022-07-08 16:30:00 16 /min [facility] blood pressure systolic 2022-07-08 16:30:00 121 mm[Hg] [facility] blood pressure diastolic 2022-07-08 16:30:00 73 mm[Hg] [facility] Procedures Procedure Date / Time Performed Performing Clinicia n Source POCT URINALYSIS 2023-05-31 17:36:00 [facility] SCANNED LAB RESULTS 2023-02-14 05:01:00 Doctor Ziggy banks, [place] [facility] POCT URINALYSIS 2023-01-18 20:21:00 [place] [facility] Encounters Start Date/Time End Date/Time Encounter Type Admission Type Attending Clinicians Care Facility Care Department Encounter ID Source 2022-07-08 16:05:03 Outpatient Nicolle Nicholas [facility] [id number] [facility] 2023-05-31 10:00:00 2023-05-31 12:02:35 Urgent Care Estefanía Garnett Unknown, Attending [facility] [id number] [facility] 2023-05-31 10:00:00 2023-05-31 10:00:00 Outpatient R ESTEFANÍA GARNETT [facility] [id number] [facility] 2023-02-14 00:00:00 2023-02-14 00:00:00 Orders Only Doctor Unassigned, [place] [facility] [id number] [facility] 2023-01-21 00:00:00 2023-01-21 00:00:00 Telephone MichelletoneyEstefanía [facility] [id number] [facility] 2023-01-18 14:40:00 2023-01-18 15:00:00 Urgent Care Duong Lucho Unknown, Attending [facility] [id number] [facility] 2023-01-18 14:40:00 2023-01-18 14:40:00 Outpatient LUCHO JACOBSON [facility] [id number] [facility] 2022-07-08 00:00:00 2022-07-08 00:00:00 OFFICE VISIT EST PT LEVEL 3 STLMLC STLMLC [id number] [facility] 2022-02-02 10:04:00 2022-02-02 10:04:00 Outpatient MARQUISE CABRERA [id number] [facility] Program Results Test Description Test Time Test Comments Results Result Co mments Source [facility]CIFIC [id number] 17:47:00* Test Item Value Reference Range Interpretation Comme nts POCT U SP GRAV (test code = 3255) 1.005 mg/dl 1.005-1.025 POCT PH U (test code = 3254) 8 mg/dl 5-8 POCT U LEUK EST (test code = 3263) ++ Negative - Negative POCT U NIT (test code = 3262) postive Negative - Negati ve POCT U PROT (test code = 3259) ++ Negative - Negative POCT U GLU (test code = 3256) normal Negative - Negati ve POCT U KETONE (test code = 3258) negative Negative - Negative POCT U UROBILI (test code = 3260) 1 mg/dl 0.2-1 POCT U BILI (test code = 3261) negative Negative - Negative POCT U BLD (test code = 3257) about 250 Negative - Negati ve POCT U COLOR (test code = 3266) sherrell POCT U APPEAR (test code = 3267) cloudy Lab Interpretation (test cod e = [id number]) [facility]normal [facility] SPECIFIC [id number] 20:26:00* Test Item Value Reference Range Interpretation Comme nts POCT U SP GRAV (test code = 3255) 1.000 mg/dl 1.005-1.025 A POCT PH U (test code = 3254) 8 mg/dl 5-8 POCT U LEUK EST (test code = 3263) 2+ Negative - Negative POCT U NIT (test code = 3262) Neg Negative - Negati ve POCT U PROT (test code = 3259) 3+ Negative - Negative POCT U GLU (test code = 3256) Normal Negative - Negati ve POCT U KETONE (test code = 3258) Neg Negative - Negative POCT U UROBILI (test code = 3260) 1 mg/dl 0.2-1 POCT U BILI (test code = 3261) Neg Negative - Negative POCT U BLD (test code = 3257) About 250 Negative - Negati ve POCT U COLOR (test code = 3266) milky POCT U APPEAR (test code = 3267) cloudy Lab Interpretation (test cod e = [id number]) Abnormal [facility]
[2024-04-26] MEDS ORDERED: NA CHLORIDE 0.9% 500 ML ONE (15:47)
[2024-04-26 15:55] LABS: Absolute Lymphocytes (CBC) 1.2 K/uL (0.7-4.9); Absolute Monocytes 1.1 K/uL (0.1-1.3); Absolute Neutrophil 13.2 K/uL (1.8-8.0); Basophils % 0.2 % (0-1.3); Eosinophils % 0.1 % (0-4.4); Hematocrit 37.5 % (39.6-49.0); Hemoglobin 12.2 g/dL (13.6-17.9); Lymphocytes % 7.9 % (15.3-44.8); MCH 29.2 pg (27.0-35.0); MCHC 32.7 g/dL (32.0-36.0); MCV 89.2 fL (80-100); MPV 7.9 fL (7.6-11.3); Neutrophils % 84.8 % (41.7-73.7); Nucleated Red Blood Cells % 0.1 % (0-0); Platelets 317 thou/uL (152-406); Red Cell Distribution Width 13.8 % (12.1-15.2)
[2024-04-26 16:02] LABS: PT Prothrombin Time 13.8 SECONDS (9.4-12.5); PTT, Activated Partial Thromb 37.9 SECONDS (24.3-36.9); Protime INR 1.24
[2024-04-26 16:19] LABS: ALT/SGPT 16 U/L (16-61); Albumin 2.9 g/dL (3.4-5.0); Albumin/Globulin Ratio 0.7 (1.1-1.8); Alkaline Phosphatase 109 U/L (45-117); Anion Gap 5.1 mEq/L (5.0-15.0); BUN Blood Urea Nitrogen 20 mg/dL (7-18); Bicarbonate 29 mEq/L (21-32); Bilirubin Total 0.5 mg/dL (0.2-1.0); Glomerular Filtration Rate 94 ml/min (=/>90); Glucose Level 99 mg/dL (74-106); Potassium 4.1 mEq/L (3.5-5.1); Protein, Total 6.9 g/dL (6.4-8.2); Sodium Level 138 mEq/L (136-145)
[2024-04-26 16:20] LABS: AST/SGOT < 10 U/L (15-37)
[2024-04-26 16:27] LABS: Specific Gravity 1.014 (1.005-1.030); Sqamous Epithelial <5 /HPF (None Seen); Urine Bacteria <20 /HPF (<20); Urine Bilirubin NEGATIVE (Negative); Urine Blood Negative (Negative); Urine Clarity Extremely Turbid (Clear); Urine Color Light-Orange (Yellow); Urine Crystals Unidentified Few /HPF (None Seen); Urine Culture Reflex Order REFLEXED; Urine Glucose NEGATIVE (Negative); Urine Ketones NEGATIVE (Negative); Urine Microscopic Reflex YN ORDER UMIC; Urine Mucus Slight /HPF (None Seen); Urine Nitrite NEGATIVE (Negative); Urine Protein 3+ (Negative); Urine Urobilinogen Normal (Normal); Urine WBC >50 /HPF (<5); Urine Yeast (Budding) Few /HPF (None Seen); Urine pH 8.5 (5.0-7.0)
--- NOTE | 2024-04-26 16:28 | RAD REPORT ---
EXAM: CT brain without contrast HISTORY: fall COMPARISON: 06/19/2022 TECHNIQUE: Multiple contiguous axial images were obtained and a CT of the brain without contrast. Sag ittal and coronal reformats were performed. One or more of the following dose reduction techniques were used: Automated exposure control, adjust ment of the mA and/or kV according to patient size, and/or iterative reconstruction. FINDINGS:No evidence of hydrocephalus, intracranial hemorrhage, or extra-axial fluid collection. Mild to moderate generalized brain atrophy. No evidence of midline shift or areas of brain edema. The calvarium is intact. The visualized paranasal sinuses and mastoid air cells are essentially clear . IMPRESSION: No evidence of acute intracranial abnormality. EXAM: CT of the cervical spine without contrast HISTORY: Neck jaimie, injury [facility] Y fall Bed Name: 3 COMPARISON: None TECHNIQUE: Multiple contiguous axial images were obtained in a CT of the cervical spine without contr ast. Sagittal and coronal reformats were performed. FINDINGS: The vertebral bodies demonstrate normal height and alignment. No evidence of acute fracture or subluxation.. Moderate multilevel mid and lower cervical degenerative changes. No prevertebral soft tissue swelling is seen. The posterior facets are well aligned. Normal alignment of the skull base with the cervical spine is seen. The lung apices are unremarkable. IMPRESSION: No evidence of acute osseous abnormality of the cervical spine. Moderate multilevel cervical degenerative changes.
--- NOTE | 2024-04-26 16:36 | RAD REPORT ---
EXAM: CT CHEST, ABDOMEN AND PELVIS WITHOUT CONTRAST CLINICAL INDICATION: fall, back pain TECHNIQUE: CT chest, abdomen and pelvis was performed without contrast, as per department protocol. A xial, sagittal and coronal reconstructions were obtained. One or more of the following dose reduction techniques were used: Automated exposure control, adjustment of the mA and/or kV according to patient size, and/or iterative reconstruction. Unless otherwise specified, incidental findings do not require dedicated imaging follow-up. Examination is limited by the lack of intravenous contrast material. COMPARISON: No prior exam. FINDINGS: LUNGS: No evidence of airspace or interstitial process. No nodules. The lungs is mildly emphysematous . PLEURA: No pleural effusion. No pneumothorax. MEDIASTINUM AND LYMPH NODES: No mediastinal mass or fluid collection. Normal size mediastinal, hilar, and axillary lymph nodes. OSSEOUS STRUCTURES AND CHEST WALL: Intact. LIVER: Normal in size and contour. No focal lesion or biliary dilatation. PANCREAS: No mass, ductal dilation, or lyn-pancreatic fluid. SPLEEN: Normal size. No focal lesion. ADRENALS: Normal; no mass. KIDNEYS: Normal size and contour. No hydronephrosis. URINARY BLADDER: Significantly distended with anterior wall thickening. Smith catheter appears in racheal ce. High density material seen dependently in the bladder could be calcifications. GASTROINTESTINAL TRACT: No bowel obstruction, free air, significant free fluid or abscess. Large le ft inguinal hernia containing a large portion of the colon. Small fat-containing right lumbar hernia. APPENDIX: Normal appendix. LYMPH NODES: No lymphadenopathy. MUSCULOSKELETAL: Mild compression fracture affects the T12 vertebral body. Estimated vertebral body h eight loss 15%. No canal compromise. IMPRESSION: T12 vertebral body acute compression fracture, estimated 15-20% loss of vertebral body height. No can al compromise. Very large left inguinal hernia containing a large amount of the colon. Significant bladder distention with Smith catheter in place.
--- NOTE | 2024-04-26 16:45 | P.HP ---
Certification for Inpatient Patient admitted to: Inpatient With expected LOS: >2 Midnights Practitioner: I am a practitioner with admitting privileges, knowledge of patient current condition, hospital course, and medical plan of care. Services: Services provided to patient in accordance with Admission requirements found in Title 42 Section 412.3 of the Code of Federal Regulations Patient History Date of Service: 04/26/24 Allergies No Known Allergies Allergy (Verified 06/19/22 00:01) Home Medications: Ascorbic Acid [Vitamin C*] 1,000 mg PO TID 07/22/20 Aspirin 1 tab PO DAILY 07/22/20 Atorvastatin Calcium [Lipitor*] 1 tab PO BEDTIME 07/22/20 Cholecalciferol (Vitamin D3) [Vitamin D3] 25 mcg PO DAILY 07/22/20 Cranberry 500 mg PO DAILY 07/22/20 Folic Acid 0.4 mg PO DAILY 07/22/20 L.acidoph,Paracasei, B.lactis [Probiotic] 1 cap PO DAILY 07/22/20 Saw [place] 1 cap PO DAILY 07/22/20 Sertraline [Zoloft*] 1 tab PO BID 07/22/20 Zinc 1 tab PO DAILY 07/22/20 Albuterol Sulfate [Albuterol Sulfate Hfa] 2 inhaler IH Q4H PRN 06/12/22 Finasteride 5 mg PO DAILY 06/12/22 Tamsulosin [Flomax*] 0.4 mg PO DAILY 06/12/22 Fluticasone Propion/Salmeterol [Advair 250-50 Diskus] 1 each IH BID #1 kit 06/14/22 Cefpodoxime Proxetil 200 mg PO BID #40 tab 06/22/22 - Past Medical/Surgical History Diabetic: No -: COPD -: Back pain -: Anxiety -: Hypertension -: Tobacco abuse -: Recurrent UTI -: Large left inguinal hernia -: Right knee surgery Psychosocial/ Personal History: The patient is . Lives at home with his daughter. - Family History Mother Medical History: Cancer Father Medical History: Heart disease, Lung disease - Social History Alcohol use: No CD- Drugs: No Caffeine use: Yes Physical Examination - Studies Laboratory Data (last 24 hrs) 04/26/24 04/26/24 04/26/24 15:44 15:44 15:44 WBC 15.50 H Hgb 12.2 L Hct 37.5 L Plt Count 317 PT 13.8 H INR 1.24 APTT 37.9 H Sodium 138 Potassium 4.1 BUN 20 H Creatinine 0.79 Glucose 99 Total Bilirubin 0.5 AST < 10 L ALT 16 Alkaline Phosphatase 109 Assessment & Plan - Advance Directives Does patient have a Living Will: Yes Does patient have a Durable POA for Healthcare: No
--- NOTE | 2024-04-26 16:52 | ER ---
Nurse's Notes [facility] Name: Giuliano Everett Age: 74 yrs Sex: Male : 1950 Arrival Date: 04/26/2024 Time: 15:06 Bed 3 Private MD: Diagnosis: Altered mental status, unspecified;UTI/ Urinary tract infection, site not specified;Delirium due to known physiological condition Presentation: 04/26 15:12 Chief complaint: Patient's son or daughter states: generalized weakness and AMS that ss began yesterday around 1100 and is becoming progressively worse throughout the day. Pt is A\\T\\O x 4, c/o back pain that is chronic, but worsened after a fall yesterday morning. Coronavirus screen: Client denies travel out of the [place] in the last 14 days. Ebola Screen: Patient denies exposure to infectious person. Patient denies travel to an Ebola-affected area in the 21 days before illness onset. Initial Sepsis Screen: Does the patient meet any 2 criteria? RR > 20 per min. HR > 90 bpm. Does the patient have a suspected source of infection? No. Patient's initial sepsis screen is negative. Risk Assessment: Do you want to hurt yourself or someone else? Patient reports no desire to harm self or others. Onset of symptoms was April 25, 2024 at 11:00. 15:12 Method Of Arrival: Ambulatory ss 15:12 Acuity: TR 3 ss Historical: - Allergies: 15:15 No Known Allergies; ss - PMHx: 15:15 COPD; DDD; herniated discs; prostate problems; ss - PSHx: 15:15 knee sx; ss - Immunization history:: Adult Immunizations up to date. - Infectious Disease History:: Denies. - Family history:: not pertinent. - Hospitalizations: : No recent hospitalization is reported. - Social history:: Smoking status: Patient/guardian denies using tobacco, but has a distant history of tobacco abuse. Screenin:13 [facility] ED Fall Risk Assessment (Adult) History of falling in the last 3 months, rs5 including since admission No falls in past 3 months (0 pts) Confusion or Disorientation No (0 pts) Intoxicated or Sedated No (0 pts) Impaired Gait Yes (1 pt) Mobility Assist Device Used Yes (1 pt) Altered Elimination No (0 pt) Score/Fall Risk Level 0 - 2 = Low Risk Oriented to surroundings, Maintained a safe environment. Abuse screen: Denies threats or abuse. Nutritional screening: No deficits noted. Tuberculosis screening: No symptoms or risk factors identified. Assessment: 15:15 General: Appears in no apparent distress. uncomfortable, Behavior is calm, cooperative. rs5 Pain: Denies pain. Neuro: Level of Consciousness is awake, alert, obeys commands, confused, Oriented to person, place. Cardiovascular: Patient's skin is warm and dry. Respiratory: Reports cough that is Airway is patent Respiratory effort is even, unlabored, Respiratory pattern is regular, symmetrical. GI: Abdomen is round non-distended, Abd is soft and non tender X 4 quads. : Bladder is distended. EENT: No signs and/or symptoms were reported regarding the EENT system. Derm: Skin is intact, Skin is pink, warm \\T\\ dry. Musculoskeletal: Range of motion: intact in all extremities, Parent/caregiver report the patient having generalized weakness. 15:30 Reassessment: to bedside for bladder scan, 900 ml reading on bladder scanner, pt states rs5 "I can't pee"provider notified.. 15:35 Reassessment: to bedside for garzon cathether placement per md orders with tech. 12 ff rs5 garzon inserted using aseptic technique by and tech, 910 ml clear sherrell urine drained to garzon bag, provider notified. pt tolerated procedure well . 16:28 Reassessment: Patient and/or family updated on plan of care and expected duration. Pain rs5 level reassessed. Patient is alert, oriented x 3, equal unlabored respirations, skin warm/dry/pink. 17:33 Reassessment: Patient and/or family updated on plan of care and expected duration. Pain rs5 level reassessed. Patient is alert, oriented x 3, equal unlabored respirations, skin warm/dry/pink. 18:31 Reassessment: No changes from previously documented assessment. rs5 Vital Signs: 15:12 BP 121 / 77; Pulse 93; Resp 22; Temp 98(O); Pulse Ox 95% on R/A; Weight 65.32 kg; ss Height 5 ft. 8 in. ; Pain 0/10; 16:46 BP 129 / 80; Pulse 91; Resp 17; Pulse Ox 96% on R/A; rs5 18:31 BP 125 / 77; Pulse 80; Resp 17; Pulse Ox 98% on R/A; rs5 15:12 Body Mass Index 21.89 (65.32 kg, 172.72 cm) ss 15:12 Pain Scale: Adult ss 15:12 Pt reports pain is a 0 when sitting still, but a 10/10 with movement ss ED Course: 15:12 Patient arrived in ED. ss 15:13 Patient has correct armband on for positive identification. Placed in gown. Bed in low rs5 position. Call light in reach. Side rails up X2. Adult w/ patient. 15:15 Triage completed. ss 15:17 Titus Leary, TRUDY is Primary Nurse. rs5 15:17 Jerzy Aceves MD is Attending Physician. rn 15:20 Inserted saline lock: 22 gauge in right forearm, using aseptic technique. Blood rs5 collected. Flushed with 10 mL NS. 15:35 No provider procedures requiring assistance completed. rs5 15:47 EKG done, by ED staff, reviewed by Jerzy Aceves MD. aa5 16:24 CT Head C Spine In Process Unspecified. EDMS 16:24 CT Chest Abdomen Pelvis W/O Contrast In Process Unspecified. EDMS 16:50 Janes Stiles MD is Hospitalizing Provider. rn 16:57 Chest Single View XRAY In Process Unspecified. EDMS 18:31 Patient admitted, IV remains in place. rs5 18:31 Provided Education on: family and patient educated on need for adm. rs5 Administered Medications: 15:40 Drug: NS 0.9% IV 500 ml IV at bolus once Route: IV; Rate: bolus; Site: right forearm; rs5 16:20 Follow up: Response: No adverse reaction; IV Status: Completed infusion; IV Intake: rs5 500ml Medication: 16:48 VIS not applicable for this client. rs5 Intake: 16:20 IV: 500ml; Total: 500ml. rs5 Outcome: 16:51 Decision to Hospitalize by Provider. rn 18:31 Admitted to Med/surg accompanied by tech, rs5 18:31 Condition: stable 18:31 Instructed on the need for admit, Demonstrated understanding of instructions, 18:32 Patient left the ED. rs5 Signatures: Dispatcher [employer] EDMS AcevesJerzy MD MD rn Calderon, Audri RN RN aa5 Lorraine Gonzalez RN RN ss Titus Leary RN RN rs5 Corrections: (The following items were deleted from the chart) 16:28 15:35 Inserted saline lock: 22 gauge in right forearm, using aseptic technique. Blood rs5 collected. Flushed with 10 mL NS rs5
--- NOTE | 2024-04-26 16:52 | EDPHYS ---
Physician Documentation [facility] Name: Giuliano Everett Age: 74 yrs Sex: Male : 1950 Arrival Date: 04/26/2024 Time: 15:06 Bed 3 Private MD: ED Physician Jerzy Aceves HPI: 04/26 16:13 This 74 yrs old Male presents to ER via Ambulatory with complaints of General Weakness, rn Altered Mental Status. 16:13 The patient presents with confusion, decreased responsiveness, disorientation. Onset: rn The symptoms/episode began/occurred yesterday. Possible causes: unknown. Current symptoms: In the emergency department the patient's symptoms are unchanged from the initial presentation. The patient has experienced similar episodes in the past. Daughter reports altered mental status that began yesterday. Reports difficulty urinating and history of urinary retention. No fever or chills. No chest pain or abdominal pain. Family member reports waxing and waning confusion and not acting right, also seems to be responding to things that are not there. Family member reports that this has happened before with recurrent urinary tract infections.. Historical: - Allergies: 15:15 No Known Allergies; ss - PMHx: 15:15 COPD; DDD; herniated discs; prostate problems; ss - PSHx: 15:15 knee sx; ss - Immunization history:: Adult Immunizations up to date. - Infectious Disease History:: Denies. - Family history:: not pertinent. - Hospitalizations: : No recent hospitalization is reported. - Social history:: Smoking status: Patient/guardian denies using tobacco, but has a distant history of tobacco abuse. ROS: 16:13 Constitutional: Negative for fever, chills, and weight loss, Eyes: Negative for injury, rn pain, redness, and discharge, Neck: Negative for injury, pain, and swelling, Cardiovascular: Negative for chest pain, palpitations, and edema, Respiratory: Negative for shortness of breath, cough, wheezing, and pleuritic chest pain, Abdomen/GI: Negative for abdominal pain, nausea, vomiting, diarrhea, and constipation, Back: Negative for injury and pain, : Positive for difficulty urinating MS/Extremity: Negative for injury and deformity, Skin: Negative for injury, rash, and discoloration, Neuro: Positive for generalized weakness and malaise Exam: 16:13 Constitutional: Disheveled male, seems slightly agitated Head/Face: Normocephalic, rn atraumatic. ENT: Dry mucous membranes Cardiovascular: Regular rate and rhythm. No pulse deficits. Respiratory: No increased work of breathing, no retractions or nasal flaring. Abdomen/GI: Soft, non-tender MS/ Extremity: Pulses equal, no cyanosis. Neuro: Awake and alert, GCS 15, oriented to person, place, time. Cranial nerves II-XII grossly intact. Motor strength 4/5 in all extremities. Sensory grossly intact. 17:27 ECG was reviewed by the Attending Physician. rn Vital Signs: 15:12 BP 121 / 77; Pulse 93; Resp 22; Temp 98(O); Pulse Ox 95% on R/A; Weight 65.32 kg; ss Height 5 ft. 8 in. ; Pain 0/10; 16:46 BP 129 / 80; Pulse 91; Resp 17; Pulse Ox 96% on R/A; rs5 18:31 BP 125 / 77; Pulse 80; Resp 17; Pulse Ox 98% on R/A; rs5 15:12 Body Mass Index 21.89 (65.32 kg, 172.72 cm) ss 15:12 Pain Scale: Adult ss 15:12 Pt reports pain is a 0 when sitting still, but a 10/10 with movement ss MDM: 15:18 Patient medically screened. rn 16:49 Differential Diagnosis: CVA, UTI, volume depletion. Data reviewed: vital signs, nurses rn notes, lab test result(s), EKG, radiologic studies, CT scan, plain films, and as a result, I will admit patient. Consideration of Admission/Observation Patient was admitted/placed on observation. Escalation of care including admission/observation considered. 16:49 Counseling: I had a detailed discussion with the patient and/or guardian regarding the rn historical points, exam findings, and any diagnostic results supporting the discharge/admit diagnosis, lab results, radiology results, the need for further work-up and treatment in the hospital. 04/26 15:23 Order name: Blood Culture Adult (2) rn 04/26 15:23 Order name: CBC with Diff; Complete Time: 16:23 rn 04/26 15:23 Order name: CMP; Complete Time: 16:23 rn 04/26 15:23 Order name: Lactate w/ 2H reflex if indic.; Complete Time: 16:23 rn 04/26 15:23 Order name: Protime (+inr); Complete Time: 16:23 rn 04/26 15:23 Order name: Ptt, Activated; Complete Time: 16:23 rn 04/26 15:23 Order name: Urinalysis w/ reflexes; Complete Time: 16:38 rn 04/26 16:31 Order name: Urine Culture EDMS 04/26 17:03 Order name: CBC with Automated Diff EDMS 04/26 17:03 Order name: CBC with Automated Diff EDMS 04/26 17:03 Order name: Comprehensive Metabolic Panel EDMS 04/26 17:03 Order name: Comprehensive Metabolic Panel EDMS 04/26 17:03 Order name: Protime (+INR) EDMS 04/26 17:03 Order name: Protime (+INR) EDMS 04/26 17:03 Order name: PTT, Activated Partial Thromb EDMS 04/26 17:03 Order name: PTT, Activated Partial Thromb EDMS 04/26 17:03 Order name: Troponin High Sensitivity EDNV 04/26 17:03 Order name: Troponin High Sensitivity EDNV 04/26 15:23 Order name: Chest Single View XRAY; Complete Time: 17:26 rn 04/26 15:23 Order name: CT Head C Spine; Complete Time: 16:38 rn 04/26 15:23 Order name: CT Chest Abdomen Pelvis W/O Contrast; Complete Time: 16:38 rn 04/26 17:03 Order name: CONS Physician Consult EDNV 04/26 17:04 Order name: Physical Therapy Consult EDNV 04/26 15:23 Order name: Accucheck; Complete Time: 16:27 rn 04/26 15:23 Order name: Cardiac monitoring; Complete Time: 15:35 rn 04/26 15:23 Order name: EKG - Nurse/Tech; Complete Time: 15:47 rn 04/26 15:23 Order name: IV Saline Lock - Large Bore; Complete Time: 15:47 rn 04/26 15:23 Order name: Labs collected and sent; Complete Time: 15:47 rn 04/26 15:23 Order name: O2 Per Protocol; Complete Time: 15:35 rn 04/26 15:23 Order name: O2 Sat Monitoring; Complete Time: 15:35 rn 04/26 15:23 Order name: Vital Signs; Complete Time: 15:35 rn EC:27 Rate is 92 beats/min. Rhythm is regular. QRS [place] is Normal. ID interval is normal. QRS rn interval is normal. QT interval is normal. No Q waves. T waves are Normal. No ST changes noted. Clinical impression: NSR w/ Non-specific ST/T Changes. Interpreted by me. Reviewed by me. Administered Medications: 15:40 Drug: NS 0.9% IV 500 ml IV at bolus once Route: IV; Rate: bolus; Site: right forearm; rs5 16:20 Follow up: Response: No adverse reaction; IV Status: Completed infusion; IV Intake: rs5 500ml Disposition Summary: 04/26/24 16:51 Hospitalization Ordered Notes: Hospitalization Status: Inpatient Admission rn Provider: Janes Stiles rn Location: Telemetry/MedSurg (Inpatient) rn Condition: Stable rn Problem: new rn Symptoms: have improved rn Bed/Room Type: Standard rn Room Assignment: 202(04/26/24 17:08) bc6 Diagnosis - Altered mental status, unspecified rn - UTI/ Urinary tract infection, site not specified rn - Delirium due to known physiological condition rn Forms: - Medication Reconciliation Form rn - SBAR form rn - Leadership Thank You Letter rn Signatures: Dispatcher [employer] EDMS Jerzy Aceves MD MD rn Blanchard, Shelby, RN RN Titus Li RN RN rs5 Catalina Lucas bc6 Corrections: (The following items were deleted from the chart) 15:23 15:23 BLOOD CULTURE*+BA.LAB.BRZ ordered. EDMS EDMS 15:23 15:23 CBC+H.LAB.BRZ ordered. EDMS EDMS 15:23 15:23 COMPREHENSIVE METABOLIC PANEL+C.LAB.BRZ ordered. EDMS EDMS 15:23 15:23 LACTATE+C.LAB.BRZ ordered. EDMS EDMS 15:23 15:23 PROTIME (+INR)+COAG.LAB.BRZ ordered. EDMS EDMS 15:23 15:23 PTT, ACTIVATED+COAG.LAB.BRZ ordered. EDMS EDMS 15:23 15:23 Urinalysis+U.LAB.BRZ ordered. EDMS EDMS 15:23 15:23 Chest Single View+RAD.RAD.BRZ ordered. EDMS EDMS 15:23 15:23 Head C Spine MPR Wo Con+CT.RAD.BRZ ordered. EDMS EDMS 15: 15:23 Chest Abdomen Pelvis Wo Con+CT.RAD.BRZ ordered. EDMS EDMS 17:08 16:51 rn bc6
[2024-04-26] MEDS ORDERED: ACETAMINOPHEN 500 MG TAB PO PRN (16:57)
[2024-04-26] MEDS: NA CHLORIDE 0.9% 1,000 ML IV SCH (17:00)
[2024-04-26] MEDS: CEFTRIAXONE 1,000 MG in NA CHLORIDE 0.9% 50 ML IVPB ONE (17:16)
--- NOTE | 2024-04-26 17:17 | RAD REPORT ---
EXAMINATION: ONE VIEW CHEST XR CLINICAL INDICATION: AMS TECHNIQUE: Frontal chest projection is submitted. Examination is limited by patient positioning and t echnique. COMPARISON: 06/18/2022 FINDINGS: Lungs are emphysematous but clear. The heart is upper limit of normal in size. No displaced fractures identified. IMPRESSION: COPD without an acute process suspected.
[2024-04-26] MEDS ORDERED: CEFTRIAXONE 1000 MG/VIAL ONE (17:25)
[2024-04-26] MEDS ORDERED: ONDANSETRON 4 MG/2 ML VIAL ONE (17:25)
[2024-04-26] MEDS ORDERED: NA CHLORIDE 0.9% 1,000 ML ONE (17:26)
[2024-04-26] MEDS ORDERED: dexAMETHasone 4 MG/ML VIAL ONE (17:26)
[2024-04-26] MEDS ORDERED: MORPHINE 2 MG/ML SYR ONE (17:26)
[2024-04-26] MEDS: dexAMETHasone 4 MG/ML VIAL IV SCH (18:00)
[2024-04-26] MEDS: ONDANSETRON 4 MG/2 ML VIAL IV PRN (18:08)
[2024-04-26] MEDS: MORPHINE 2 MG/ML SYR IV PRN (18:08)
[2024-04-26] MEDS: ALBUTEROL 2.5 MG/3 ML NEB SOL NEB SCH (19:41)
[2024-04-26] MEDS: IPRATROPIUM BROM 0.5MG/2.5ML NEB SCH (19:41)
[2024-04-26 20:48] VITALS: BMI 21.8
[2024-04-27 05:18] LABS: Absolute Lymphocytes (CBC) 0.7 K/uL (0.7-4.9); Absolute Monocytes 0.4 K/uL (0.1-1.3); Absolute Neutrophil 12.9 K/uL (1.8-8.0); Basophils % 0.1 % (0-1.3); Hematocrit 34.7 % (39.6-49.0); Hemoglobin 11.3 g/dL (13.6-17.9); MCH 29.1 pg (27.0-35.0); MCHC 32.5 g/dL (32.0-36.0); MCV 89.5 fL (80-100); MPV 8.9 fL (7.6-11.3); Monocytes % 2.8 % (3.3-12.3); Neutrophils % 92.1 % (41.7-73.7); Platelets 271 thou/uL (152-406); RBC Red Blood Cell Count 3.88 M/uL (4.33-5.43); Red Cell Distribution Width 13.9 % (12.1-15.2)
[2024-04-27 05:19] LABS: PT Prothrombin Time 14.2 SECONDS (9.4-12.5); PTT, Activated Partial Thromb 34.5 SECONDS (24.3-36.9); Protime INR 1.28
[2024-04-27 05:28] LABS: Albumin 2.5 g/dL (3.4-5.0); Albumin/Globulin Ratio 0.7 (1.1-1.8); Anion Gap 4.1 mEq/L (5.0-15.0); Bilirubin Total 0.4 mg/dL (0.2-1.0); Globulin 3.7 g/dL (2.3-3.5); Potassium 4.1 mEq/L (3.5-5.1); Protein, Total 6.2 g/dL (6.4-8.2)
[2024-04-27 06:13] LABS: Band Neutrophils 1 % (0-1); Blood Morphology Comment NOT SEEN (NOT SEEN); Differential Total Cells Count 100; Lymphocytes 4 % (15-42); Metamyelocytes 1 % (0-0); Monocytes 3 % (0-10); Platelet Estimate ADEQ; Segmented Neutrophils 91 % (40-80)
[2024-04-27] MEDS: CEFTRIAXONE 1,000 MG in NA CHLORIDE 0.9% 50 ML IVPB SCH (08:41)
--- NOTE | 2024-04-27 16:34 | EKG ---
Test Date: 2024-04-26 Test Time: 15:45:34 Geography Instructor: GEORGE MEASUREMENT RESULTS: Intervals: Rate: 92 NH: 150 QRSD: 136 QT: 384 QTc: 474 [place]: P: 77 NH: 150 QRS: 80 T: 69 INTERPRETIVE STATEMENTS: Normal sinus rhythm Right bundle branch block Abnormal ECG Compared to ECG 10/18/2022 19:39:06 Short NH interval no longer present Myocardial infarct finding no longer present Electronically Signed On 04-27-24 16:32:05 CDT by Juan Mendoza
--- NOTE | 2024-04-28 07:38 | P.PN ---
Date of Service: 04/27/24 Subjective Presented with mild confusion, UTI, Smith placed in the emergency room, Mentation improving, tolerating diet, mild pain, working with physical therapy ROS 10 point system negative unless listed in HPI Physical Examination - Vital Signs reviewed - Physical Exam General: Alert, In no apparent distress, Oriented x3, Cooperative HEENT: Atraumatic Neck: Supple Respiratory: Equal, unlabored Cardiovascular: Normal pulses, Regular rate/rhythm Gastrointestinal: Normal bowel sounds, Soft and benign, Non-distended, Musculoskeletal: No erythema, No tenderness, No warmth Integumentary: No tenderness/swelling, No erythema, No warmth, No cyanosis Neurological: Normal speech, Normal strength at 5/5 x4 extr, Normal tone, Normal affect Assessment & Plan - Problems (Diagnosis) recurrent UTI (urinary tract infection) without hematuria Current Visit: Yes Status: Acute Plan: CT of the abdomen pelvis T12 vertebral body acute compression fracture, estimated 15-20% loss of vertebral body height. No canal compromise. Very large left inguinal hernia containing a large amount of the colon.Significant bladder distention with Smith catheter in place Infectious disease consulted Blood cultures, urine culture indwelling Smith catheter placed in the emergency room will DC prior to discharge I&O, Smith delirium due to likely secondary to acute cystitis improving Current Visit: Yes Status: Acute Plan: COPD (chronic obstructive pulmonary disease) stable As needed stephanie nebs, dexamethasone Mild compression fracture History of falls History of pelvic fracture Ellyn in bed as baseline T12 Mild compression fracture Pain controlled as needed analgesia diabetes type 2 Sliding scale insulin, Accu-Chek Resume long-acting and Hypertension Current Visit: Yes Status: Chronic Plan: Medication has been restarted. Will monitor blood pressure closely. Inguinal hernia Current Visit: Yes Status: Chronic Plan: Patient has a left-sided large inguinal hernia. This is chronic. No obstruction is noted. No pain noted. Discharge Plan: Home Plan to discharge in: 24 Hours Time Spent Managing Pts Care (In Minutes): 35
[2024-04-28 09:18] VITALS: O2SAT 95
[2024-04-28] MEDS ORDERED: Levofloxacin 750mg IV 750 MG/150 ML BAG IV SCH (11:00)
--- NOTE | 2024-04-28 11:05 | P.DS ---
Admission Date: 04/26/24 Discharge Date: 04/28/24 Disposition: ROUTINE DISCHARGE Discharge Condition: GOOD Brief History of Present Illness: 74-year-old male with pmh COPD; DDD; herniated discs; prostate problems; presented to the emergency room with confusion. Was noted to have acute cystitis, he reports associated dysuria, Smith was placed in the emergency room. No reported fever chills nausea vomiting diarrhea. Plan to admit for acute cystitis, acute delirium, Physical Exam General: Alert, In no apparent distress, Oriented x3, Cooperative HEENT: Atraumatic Neck: Supple Respiratory: Equal, unlabored Cardiovascular: Normal pulses, Regular rate/rhythm Gastrointestinal: Normal bowel sounds, Soft and benign, Non-distended, Musculoskeletal: No erythema, No tenderness, No warmth Integumentary: No tenderness/swelling, No erythema, No warmth, No cyanosis Neurological: Normal speech, Normal strength at 5/5 x4 extr, Normal tone, Normal affect Hospital Course: 74-year-old male with pmh COPD; DDD; herniated discs; prostate problems; presented to the emergency room with confusion. Was noted to have acute cystitis, he reports associated dysuria, Smith was placed in the emergency room. No reported fever chills nausea vomiting diarrhea, mentation improved with IV antibiotics, tolerating diet, stable to discharge home, follow-up with PCP after discharge, patient refused home health, PT at discharge. Discharge medication Cipro 1 p.o. twice daily for 7 days Tramadol 50 mg 1 p.o. every 6 hours as needed for pain Assessment Acute cystitis without hematuria, treated with IV antibiotic-discharged home on Cipro twice daily for 14 days History of falls, history of pelvic fracture, patient has a walker, wheelchair at home, patient refused home health-tramadol given for pain prior to discharge T12 mild compression fracture patient was seen by physical therapy while inpatient, patient reports has walker, wheelchair at home Smith catheter was placed on admission, removed prior to discharge patient voiding Delirium, cognition improved with IV fluids, IV antibiotics. COPD stable, resume home medications after discharge Diabetes type 2 resume home meds inguinal hernia, stable, Imaging CT large left inguinal hernia, small fat-containing, mild compression fractures T12, 15% height loss, bladder distention, Smith catheter in place CT of the head Moderate multilevel mid and lower cervical degenerative changes. No prevertebralsoft tissue swelling is seen. Continue home medicines as previously prescribed GOAL: Clear understanding of disease process INSTRUCTIONS: Physician Discharge Instructions: -Follow-up with PCP in 1 to 2 weeks -Please call Dr. Stiles at [phone] if any questions regarding hospital stay -Please call nursing station at [phone] if any nursing or medication questions -Return to the emergency room if symptoms worsen Diet: ADA, low sodium Activity: Fall precautions Vital Signs/Physical Exam: Temp Pulse Resp BP Pulse Ox 98.3 F 88 20 189/98 H 95 04/28/24 08:00 04/28/24 08:00 04/28/24 09:29 04/28/24 08:00 04/28/24 09:29 Laboratory Data at Discharge: WBC 14.00 thou/uL (4.3-10.9) H 04/27/24 04:31 Hgb 11.3 g/dL (13.6-17.9) L 04/27/24 04:31 Hct 34.7 % (39.6-49.0) L 04/27/24 04:31 Plt Count 271 thou/uL (152-406) 04/27/24 04:31 PT 14.2 SECONDS (9.4-12.5) H 04/27/24 04:31 INR 1.28 04/27/24 04:31 APTT 34.5 SECONDS (24.3-36.9) 04/27/24 04:31 Sodium 135 mEq/L (136-145) L 04/27/24 04:31 Potassium 4.1 mEq/L (3.5-5.1) 04/27/24 04:31 BUN 14 mg/dL (7-18) 04/27/24 04:31 Creatinine 0.58 mg/dL (0.70-1.30) L 04/27/24 04:31 Glucose 129 mg/dL (74-106) H 04/27/24 04:31 Total Bilirubin 0.4 mg/dL (0.2-1.0) 04/27/24 04:31 AST 88 U/L (15-37) H 04/27/24 04:31 ALT 87 U/L (16-61) H 04/27/24 04:31 Alkaline Phosphatase 197 U/L (45-117) H D 04/27/24 04:31 Home Medications: Ascorbic Acid [Vitamin C*] 1,000 mg PO TID 07/22/20 Aspirin 1 tab PO DAILY 07/22/20 Atorvastatin Calcium [Lipitor*] 1 tab PO BEDTIME 07/22/20 Cholecalciferol (Vitamin D3) [Vitamin D3] 25 mcg PO DAILY 07/22/20 Cranberry 500 mg PO DAILY 07/22/20 Folic Acid 0.4 mg PO DAILY 07/22/20 L.acidoph,Paracasei, B.lactis [Probiotic] 1 cap PO DAILY 07/22/20 Saw [place] 1 cap PO DAILY 07/22/20 Sertraline [Zoloft*] 1 tab PO DAILY 07/22/20 Zinc 1 tab PO DAILY 07/22/20 Albuterol Sulfate [Albuterol Sulfate Hfa] 2 inhaler IH Q4H PRN 06/12/22 Finasteride 5 mg PO DAILY 06/12/22 Tamsulosin [Flomax*] 0.4 mg PO DAILY 06/12/22 Ciprofloxacin HCl 500 mg PO BID 7 Days #14 tab 04/28/24 traMADol HCL [Ultram*] 50 mg PO Q6H PRN 15 Days #25 tab 04/28/24 New Medications: Ciprofloxacin HCl 500 mg PO BID 7 Days #14 tab traMADol HCL [Ultram*] 50 mg PO Q6H PRN 15 Days #25 tab PRN Reason: Pain Physician Discharge Instructions: 74-year-old male with pmh COPD; DDD; herniated discs; prostate problems; presented to the emergency room with confusion. Was noted to have acute cystitis, he reports associated dysuria, Smith was placed in the emergency room. No reported fever chills nausea vomiting diarrhea, mentation improved with IV antibiotics, tolerating diet, stable to discharge home, follow-up with PCP after discharge, patient refused home health, PT at discharge. Assessment Acute cystitis without hematuria, treated with IV antibiotic History of falls, history of pelvic fracture, T12 mild compression fracture patient was seen by physical therapy while inpatient, patient reports has walker, wheelchair at home Smith catheter was placed on admission, removed prior to discharge patient voiding Delirium, cognition improved with IV fluids, IV antibiotics. COPD stable, resume home medications after discharge Diabetes type 2 resume home meds inguinal hernia, stable, Continue home medicines as previously prescribed GOAL: Clear understanding of disease process INSTRUCTIONS: Physician Discharge Instructions: -Follow-up with PCP in 1 to 2 weeks -Please call Dr. Stiles at [phone] if any questions regarding hospital stay -Please call nursing station at [phone] if any nursing or medication questions -Return to the emergency room if symptoms worsen Diet: ADA, low sodium Activity: Fall precautions Diet: AHA Activity: Fall precautions Followup: PATRICIA ROBERT [Primary Care Provider] - Time spent managing pt's care (in minutes): 55
[2024-04-28 16:22] VITALS: BP 154/92; TEMP 98.4
[2024-04-29] MEDS ORDERED: levoFLOXacin 750 MG TAB PO SCH ×2 (09:00→11:30)
== END 2024-04-28 17:22 | disposition home or self-care (01) | DRG 871 ==
LOC: ER 15:06 → ERHOLD 16:57 → 2ND 17:41
PROVIDERS: ADMIT Hospitalist; ATTEND Hospitalist
PROC: 0T9B70Z Drainage of Bladder with Drainage Device, Via Natural or Artificial Opening (ICD-10-PCS; principal; 2024-04-26)
DX: A41.9 Sepsis, unspecified organism (principal); G93.41 Metabolic encephalopathy; F05 Delirium due to known physiological condition; N30.00 Acute cystitis without hematuria; R65.20 Severe sepsis without septic shock; E11.9 Type 2 diabetes mellitus without complications; I10 Essential (primary) hypertension; J44.9 Chronic obstructive pulmonary disease, unspecified; K40.90 Unilateral inguinal hernia, without obstruction or gangrene, not specified as recurrent; S22.089D Unspecified fracture of T11-T12 vertebra, subsequent encounter for fracture with routine healing; Z79.82 Long term (current) use of aspirin; Z87.891 Personal history of nicotine dependence; Z79.899 Other long term (current) drug therapy
CPT/HCPCS: 36415; 70450; 71045; 71250; 72125; 74176; 80053; 81001; 82947; 83605; 84484; 85025; 85610; 85730; 87040; 87086; 87088; 93005; 94640; 96360; 97161; 97530; 97542; 99285; J0696; J1100; J2270; J2405; J7030; J7040; J7613; J7644

== ENCOUNTER 2024-04-29 23:51 | Inpatient (IN) | payer OTHER ==
--- OUTSIDE RECORDS SUMMARY | 2024-04-29 23:53 | XMS REPORT | Continuity of Care Document ---
Author Name Unknown Address [address] [place] [address] [facility] Address [address] [place] [address] Care Team Providers Care Spinning Room Worker Name Role Phone Landon Salgado Primary Care Physician [phone] Nicholas Valverde Attending Clinician Unavailable Estefanía Corbin Attending Clinician [phone] Unknown, Attending Attending Clinician Unavailab ESTEFANÍA Yepez Attending Clinician Unavailable Doctor Unassigned, [place] Attending Clinician U Lucho Whitman MD Attending Clinician [phone] [place] Attending Clinician Unavailable ESTEBNA Attending Clinician Unavailable ESTEBAN Admitting Clinician Unavailable Payers Payer Name Policy Type Policy Number Effective Date Expirati on Date Source [facility] 53 [id number] [facility] Problems Condition Name Condition Details Condition Category Status Onset Date Resolution Date Last Treatment Date Treating Clinician Comments Source [id number] BPH loc w urin obs/LUTS Problem [facility] [id number] Urinary retention Problem [facility] [id number] Bladder calculus Problem [facility] Allergies, Adverse Reactions, Alerts Allergy Name Allergy Type Status Severity Reaction(s) Onset Date Inactive Date Treating Clinician Comments Source NO KNOWN ALLERGIE S Drug Class Active [facility] Social History Social Habit Start Date Stop Date Quantity Comments Source Gender identity [facility] History of tobacco use Cigarette Smoker [facility] History of Social function 2023-05-31 00:00:00 2023-05-31 00:00:00 [facility] Sex Assigned At 1950 00:00:00 1950 00:00:00 [facility] Smoking Status Start Date Stop Date Source Smokes tobacco daily 2023-05-31 00:00:00 [facility] Tobacco smoking consumption unknown [facility] Medications Ordered Medication Name Filled Medication Name Start Date Stop Date Current Medication? Ordering Clinician Indication Dosage Frequency Signature (SIG) Comments Components Source cefdinir 300 mg capsule 2022-07 00:00: 00 06-11 05:59 :00 No [id number] 600mg Take 2 capsules by mouth in the morning for 10 days. [facility] levoFLOXaci n 750 mg tablet 01-18 00:00: 00 01-26 04:59 :00 No [id number] 750mg Take 1 tablet by mouth every 24 (twenty-fo ur) hours for 7 days. [facility] albuterol 90 mcg/actuati on inhaler 12-29 00:00: 00 Yes 2{puff} Inhale 2 Puffs every 4 (four) hours as needed. [facility] WIXELA INHUB 250-50 mcg/dose inhalation disk 12-28 00:00: 00 Yes [facility] tamsulosin 0.4 mg 24 hr capsule 12-28 00:00: 00 Yes TAKE 1 CAPSULE BY MOUTH EVERY 24 HOURS FOR 90 DAYS [facility] gabapentin 100 mg capsule 12-28 00:00: 00 Yes TAKE 2 CAPSULES BY MOUTH TWICE DAILY [facility] SERTraline 100 mg tablet 12-28 00:00: 00 Yes 100mg Take 1 tablet by mouth in the morning. [facility] Lisinopril- hydroCHLORO thiazide 10-12.5 MG Lisinopril- hydroCHLORO [...] Name Observation Time Observation Value Comments S onofrecynthia Systolic blood pressure 2023-05-31 17:35:00 158 mm[Hg] [facility] Diastolic blood pressure 2023-05-31 17:35:00 83 mm[Hg] [facility] Heart rate 2023-05-31 17:34:00 84 /min [facility] Body temperature 2023-05-31 17:34:00 36.89 [place] [facility] Respiratory rate 2023-05-31 17:34:00 24 /min [facility] Body height 2023-05-31 17:34:00 175.3 cm [facility] Body weight 2023-05-31 17:34:00 71.578 kg [facility] BMI 2023-05-31 17:34:00 23.30 kg/m2 [facility] Oxygen saturation in Arterial blood by Pulse oximetry 2023-05-31 17:34:00 95 /min [facility] Systolic blood pressure 2023-01-18 20:16:00 139 mm[Hg] [facility] Diastolic blood pressure 2023-01-18 20:16:00 87 mm[Hg] [facility] Heart rate 2023-01-18 20:15:00 101 /min [facility] Body temperature 2023-01-18 20:15:00 36.72 [place] [facility] Respiratory rate 2023-01-18 20:15:00 16 /min [facility] Body height 2023-01-18 20:15:00 175.3 cm [facility] Body weight 2023-01-18 20:15:00 69.854 kg [facility] BMI 2023-01-18 20:15:00 22.74 kg/m2 [facility] Oxygen saturation in Arterial blood by Pulse oximetry 2023-01-18 20:15:00 96 /min [place] [facility] height 2022-07-08 16:30:00 69 [in_i] Commo n [facility] weight 2022-07-08 16:30:00 143.6 [lb_av] Co mmon [facility] temperature 2022-07-08 16:30:00 97.5 [degF] Com mon [facility] bmi 2022-07-08 16:30:00 21.2 kg/m2 Commo n [facility] oximetry 2022-07-08 16:30:00 96 % [facility] respiratory rate 2022-07-08 16:30:00 16 /min [facility] blood pressure systolic 2022-07-08 16:30:00 121 mm[Hg] [facility] blood pressure diastolic 2022-07-08 16:30:00 73 mm[Hg] [facility] Procedures Procedure Date / Time Performed Performing Clinicia n Source POCT URINALYSIS 2023-05-31 17:36:00 Anna Burks [facility] SCANNED LAB RESULTS 2023-02-14 05:01:00 Doctor Ziggy banks, [place] [facility] POCT URINALYSIS 2023-01-18 20:21:00 [place] [facility] Encounters Start Date/Time End Date/Time Encounter Type Admission Type Attending Clinicians Care Facility Care Department Encounter ID Source 2022-07-08 16:05:03 Outpatient Nicolle Nicholas [facility] [id number] [facility] 2023-05-31 10:00:00 2023-05-31 12:02:35 Urgent Care Estefanía Garnett Unknown, Attending [facility] [id number] [facility] 2023-05-31 10:00:00 2023-05-31 10:00:00 Outpatient R ESTEFANÍA GARNETT [facility] [id number] [facility] 2023-02-14 00:00:00 2023-02-14 00:00:00 Orders Only Doctor Unassigned, [place] [facility] [id number] [facility] 2023-01-21 00:00:00 2023-01-21 00:00:00 Telephone Estefanía Garnett [facility] [id number] [facility] 2023-01-18 14:40:00 2023-01-18 15:00:00 Urgent Care [place] Unknown, Attending [facility] [id number] [facility] 2023-01-18 14:40:00 2023-01-18 14:40:00 Outpatient LUCHO JACOBSON [facility] [id number] [facility] 2022-07-08 00:00:00 2022-07-08 00:00:00 OFFICE VISIT EST PT LEVEL 3 STLMLC STLMLC [id number] [facility] 2022-02-02 10:04:00 2022-02-02 10:04:00 Outpatient MARQUISE [facility] [id number] [place] and[facility] Program Results Test Description Test Time Test Comments Results Result Co mments Source [facility] W SPECIFIC [id number] 17:47:00* Test Item Value Reference Range Interpretation [...] cloudy Lab Interpretation (test cod e = [id number]) Abnormal [facility] SPECIFIC [id number] 20:26:00* Test Item Value Reference Range Interpretation [...] cloudy Lab Interpretation (test cod e = [id number]) Abnormal [facility]
[2024-04-30] MEDS ORDERED: AZITHROMYCIN 500 MG INJ IVPB ONE (00:30)
[2024-04-30] MEDS ORDERED: CEFTRIAXONE 1000 MG/VIAL ONE (00:30)
[2024-04-30] MEDS ORDERED: NA CHLORIDE 0.9% 250 ML ONE (00:30)
[2024-04-30] MEDS ORDERED: NA CHLORIDE 0.9% 1,000 ML ONE (00:30)
[2024-04-30] MEDS ORDERED: ACETAMINOPHEN 500 MG TAB ONE (00:30)
[2024-04-30 00:51] LABS: Absolute Lymphocytes (CBC) 1.4 K/uL (0.7-4.9); Absolute Monocytes 1.3 K/uL (0.1-1.3); Absolute Neutrophil 13.8 K/uL (1.8-8.0); Basophils % 0.1 % (0-1.3); Eosinophils % 0.2 % (0-4.4); Hematocrit 35.6 % (39.6-49.0); Hemoglobin 11.6 g/dL (13.6-17.9); Lymphocytes % 8.7 % (15.3-44.8); MCH 28.7 pg (27.0-35.0); MCHC 32.6 g/dL (32.0-36.0); MCV 88.2 fL (80-100); MPV 8.5 fL (7.6-11.3); Monocytes % 7.7 % (3.3-12.3); Neutrophils % 83.3 % (41.7-73.7); Platelets 284 thou/uL (152-406); RBC Red Blood Cell Count 4.03 M/uL (4.33-5.43); Red Cell Distribution Width 13.9 % (12.1-15.2)
[2024-04-30 00:54] LABS: PT Prothrombin Time 14.2 SECONDS (9.4-12.5); PTT, Activated Partial Thromb 27.9 SECONDS (24.3-36.9); Protime INR 1.28
[2024-04-30] MEDS ORDERED: DIPHENHYDRAMINE 50 MG/ML VIAL ONE (00:55)
[2024-04-30 00:59] LABS: Renal Epithelial <5 /HPF (None Seen); Specific Gravity 1.007 (1.005-1.030); Sqamous Epithelial <5 /HPF (None Seen); Urine Bacteria <20 /HPF (<20); Urine Bilirubin NEGATIVE (Negative); Urine Blood Negative (Negative); Urine Clarity Turbid (Clear); Urine Color Light-Yellow (Yellow); Urine Culture Reflex Order REFLEXED; Urine Glucose NEGATIVE (Negative); Urine Ketones NEGATIVE (Negative); Urine Microscopic Reflex YN ORDER UMIC; Urine Mucus Slight /HPF (None Seen); Urine Nitrite NEGATIVE (Negative); Urine Protein TRACE (Negative); Urine RBC <5 /HPF (None Seen); Urine Urobilinogen Normal (Normal)
[2024-04-30 01:03] LABS: Albumin 2.5 g/dL (3.4-5.0); Albumin/Globulin Ratio 0.6 (1.1-1.8); Anion Gap 10.6 mEq/L (5.0-15.0); Bilirubin Total 0.4 mg/dL (0.2-1.0); Globulin 3.9 g/dL (2.3-3.5); Potassium 3.6 mEq/L (3.5-5.1); Protein, Total 6.4 g/dL (6.4-8.2)
[2024-04-30 01:28] LABS: SARS-CoV-2 Antigen CONTROL BLUE LINE VIS/BG OK; SARS-CoV-2 Antigen Rapid Res Negative (Negative)
--- NOTE | 2024-04-30 01:28 | EDPHYS ---
Physician Documentation [facility] Name: Giuliano Everett Age: 74 yrs Sex: Male : 1950 Arrival Date: 04/29/2024 Time: 23:51 Bed 20 Private MD: ED Physician Cory Motley HPI: 04/29 23:53 This 74 yrs old Male presents to ER via Unassigned with complaints of Altered ec2 Mental Status. 23:53 Patient arrives today for evaluation of progressive altered mental status. Patient with ec2 recent admission for urinary tract infection, daughter reports the patient is been progressively getting worse. Patient also having significant cough. History of COPD. No vomiting, no diarrhea.. Historical: - Allergies: 23:55 No Known Allergies; cp4 - Immunization history:: Adult Immunizations up to date. - Infectious Disease History:: Denies. - Social history:: Smoking status: Patient reports the use of cigarette tobacco products, smokes one-half pack cigarettes per day. ROS: 23:53 Constitutional: as per hpi ec2 Exam: 23:53 Constitutional: GEN: NAD Head: atraumatic Eyes: EOMI Ears: External ears are ec2 normal. CV: Tachycardia LUNGS: no respiratory distress, rhonchi noted throughout ABD: non-distended, soft, nontender, not guarding, not rigid SKIN: no evidence of rashes MSK: no evidence of trauma Vital Signs: 23:52 BP 127 / 82; Pulse 119; Resp 18; Temp 99.1; Pulse Ox 92% on R/A; Pain 0/10; cp4 04/30 00:26 BP 138 / 107; Pulse 113; Resp 18; Temp 99.1; Pulse Ox 92% ; Pain 0/10; cp4 01:30 BP 129 / 94; Pulse 105; Resp 20; Pulse Ox 94% ; cp4 01:38 BP 129 / 94; Pulse 103; ec2 02:30 BP 116 / 87; Pulse 106; Resp 20; Pulse Ox 94% ; cp4 03:30 BP 114 / 72; Pulse 91; Resp 17 S; Pulse Ox 95% on 3 lpm NC; ha1 04/29 23:52 Pain Scale: Adult cp4 04/30 00:26 Pain Scale: Adult cp4 NIH Stroke Scale Scores: 04/29 23:56 NIHSS Score: 0 cp4 MDM: 23:52 Patient medically screened. ec2 23:53 Data reviewed: vital signs. ED course: Patient arrives today for progressive altered ec2 mental status in the setting of recent UTI diagnosis. Examination remarkable for cooperative individual is otherwise in no acute distress. Will obtain septic workup and empirically treat with ceftriaxone and azithromycin. . 04/30 00:11 ED course: EKG independently reviewed and interpreted by me, shows sinus tachycardia, ec2 rate of 112, no acute ST segment elevations, intervals are nonactionable, right bundle branch block noted.. 01:24 ED course: Chest x-ray shows no acute intrathoracic process. . ec2 01:27 ED course: CBC shows leukocytosis. Metabolic profile shows renal dysfunction with a ec2 creatinine of 1.77 GFR of 40. Urine is with leuk esterase and WBCs present. Lactic acid within normal ranges. Flu testing negative. Will admit for UTI, sepsis. Discussed case with hospitalist, pending admission . 04/29 23:52 Order name: Blood Culture Adult (2) ec2 04/29 23:52 Order name: CBC with Diff; Complete Time: ec2 04/29 23:52 Order name: CMP; Complete Time: ec2 04/29 23:52 Order name: Lactate w/ 2H reflex if indic.; Complete Time: ec2 04/29 23:52 Order name: Protime (+inr); Complete Time: ec2 04/29 23:52 Order name: Ptt, Activated; Complete Time: ec2 04/29 23:52 Order name: Urinalysis w/ reflexes; Complete Time: ec2 04/29 23:53 Order name: Influenza Screen (a \\T\\ B); Complete Time: : ec2 04/29 23:53 Order name: SARS RAPID; Complete Time: :29 ec2 04/30 00:43 Order name: Glucose, Ancillary Testing; Complete Time: EDMS 04/30 01:02 Order name: Urine Culture EDMS 04/30 02:17 Order name: Urinalysis w/ reflexes EDMS 04/30 02:17 Order name: CBC with Automated Diff EDMS 04/30 02:17 Order name: CBC with Automated Diff EDMS 04/30 02:17 Order name: Comprehensive Metabolic Panel EDMS 04/30 02:17 Order name: Comprehensive Metabolic Panel EDMS 04/29 23:52 Order name: Chest Single View XRAY ec2 04/29 23:52 Order name: Accucheck; Complete Time: 00:31 ec2 04/29 23:52 Order name: Cardiac monitoring; Complete Time: 00:22 ec2 04/29 23:52 Order name: Cath; Complete Time: 00:22 ec2 04/29 23:52 Order name: EKG - Nurse/Tech; Complete Time: 00:22 ec2 04/29 23:52 Order name: IV Saline Lock - Large Bore; Complete Time: 00:22 ec2 04/29 23:52 Order name: Labs collected and sent; Complete Time: 00:22 ec2 04/29 23:52 Order name: O2 Per Protocol; Complete Time: 00:22 ec2 04/29 23:52 Order name: O2 Sat Monitoring; Complete Time: 00:22 ec2 04/29 23:52 Order name: Vital Signs; Complete Time: 00:22 ec2 Administered Medications: 00:41 Drug: AZITHromycin IVPB 500 mg IVPB once over 1 hrs; (mix in 250 mL NS) Route: IVPB; cp4 Infused Over: 1 hrs; Site: right antecubital; 01:45 Follow up: IV Status: Completed infusion cp4 00:41 Drug: NS 0.9% IV 1000 ml IV at 1 bolus Per protocol; 1000 mL bolus Route: IV; Rate: 1 cp4 bolus; Site: right forearm; 01:45 Follow up: IV Status: Completed infusion cp4 00:41 Drug: Acetaminophen PO 1000 mg PO once Route: PO; cp4 01:05 Follow up: Response: No adverse reaction cp4 00:42 Drug: Rocephin IV 1 grams IV at calculated rate once; Given slow IV push per pharmacy cp4 instructions Route: IV; Rate: calculated rate; Site: right forearm; 01:03 Follow up: Response: No adverse reaction; IV Status: Completed infusion cp4 01:02 Drug: diphenhydrAMINE IVP 50 mg IVP once Route: IVP; Site: left antecubital; cp4 02:13 Follow up: Response: No adverse reaction cp4 02:21 Drug: Diazepam IVP 5 mg IVP once Route: IVP; Site: right forearm; cp4 03:10 Follow up: Response: No adverse reaction cp4 02:45 Drug: Haloperidol IVP 5 mg IVP once Route: IVP; Site: right forearm; cp4 03:00 Follow up: Response: No adverse reaction; Marked relief of symptoms ha1 Disposition: 01:28 Critical Care:. ec2 Disposition Summary: 04/30/24 01:27 Hospitalization Ordered Notes: Hospitalization Status: Inpatient Admission ec2 Provider: Vignesh Cardenas ec2 Location: Telemetry/MedSurg (Inpatient) ec2 Condition: Stable ec2 Problem: new ec2 Symptoms: have improved ec2 Bed/Room Type: Standard ec2 Room Assignment: 431(04/30/24 02:31) vk Diagnosis - UTI/ Urinary tract infection, site not specified ec2 - Sepsis, unspecified organism ec2 - Renal Dysfunction ec2 Forms: - Medication Reconciliation Form ec2 - SBAR form ec2 - Leadership Thank You Letter ec2 Critical care time excluding procedures: 01:28 Critical care time: Bedside Care: 30 minutes, Consultation: 5 minutes. Total time: 35 ec2 minutes NIH Stroke Scale - NIH Stroke Score Date: 04/29/2024 Time: 23:56 Total Score = 0 10. Dysarthria (speech clarity - read or repeat words) - 0(Normal) 11. Extinction and Inattention (visual/tactile/auditory/spatial/personal) - 0(No abnormality) 1a. Level of Consciousness (LOC) - 0(Alert) 1b. Level of Consciousness (LOC) (Month \\T\\ Age) - 0(Both) 1c. LOC Commands (Open \\T\\ Closes Eyes/Frothing Machine Operator) - 0(Both) 2. Best Gaze (Lateral Gaze Paresis) - 0(Normal) 3. Visual Field Loss - 0(No visual loss) 4. Facial Palsy - 0(Normal) 5a. Left Arm: Motor (10-second hold) - 0(No drift) 5b. Right Arm: Motor (10-second hold) - 0(No drift) 6a. Left Leg: Motor (5-second hold - always test supine) - 0(No drift) 6b. Right Leg: Motor (5-second hold - always test supine) - 0(No drift) 7. Limb Ataxia (finger/nose \\T\\ heel/monroy - test with eyes open) - 0(Absent) 8. Sensory Loss (pinprick arms/legs/face) - 0(Normal) 9. Best Language: Aphasia (description/naming/reading) - 0(No aphasia) Initials: cp4 Signatures: Dispatcher [employer] EDMS Cory Motley MD MD ec2 Joan Andrade cp4 Liv Urbano Heidy RN ha1 Corrections: (The following items were deleted from the chart) 04/29 23:53 23:53 Chest Single View+[id number] ordered. EDMS EDMS 23:56 23:55 PMHx: herniated discs; cp4 cp4 23:56 23:55 PMHx: COPD; cp4 cp4 23:56 23:55 PMHx: DDD; cp4 cp4 23:56 23:55 PMHx: "bladder stone"; cp4 cp4 23:56 23:55 PMHx: prostate problems; cp4 cp4 23:56 23:55 PSHx: knee sx; cp4 cp4 04/30 02:31 01:27 ec2 doris
--- NOTE | 2024-04-30 01:28 | ER ---
Nurse's Notes [facility] Name: Giuliano Everett Age: 74 yrs Sex: Male : 1950 Arrival Date: 04/29/2024 Time: 23:51 Bed 20 Private MD: Diagnosis: UTI/ Urinary tract infection, site not specified;Sepsis, unspecified organism;Renal Dysfunction Presentation: 04/29 23:52 Chief complaint: EMS states: altered mental status and urinary retention. States he was cp4 just discharged several days ago. Coronavirus screen: Client denies travel out of the [place] in the last 14 days. At this time, the client does not indicate any symptoms associated with coronavirus-19. Ebola Screen: Patient negative for fever greater than or equal to 101.5 degrees Fahrenheit, and additional compatible Ebola Virus Disease symptoms Patient denies exposure to infectious person. Patient denies travel to an Ebola-affected area in the 21 days before illness onset. No symptoms or risks identified at this time. Initial Sepsis Screen: Does the patient meet any 2 criteria? Altered Mental Status. HR > 90 bpm. Does the patient have a suspected source of infection? No. Patient's initial sepsis screen is negative. Risk Assessment: Do you want to hurt yourself or someone else? Patient reports no desire to harm self or others. Onset of symptoms was April 29, 2024. 23:52 Method Of Arrival: EMS: [facility] 23:52 Acuity: TR 2 cp4 Triage Assessment: 23:56 General: Appears distressed, uncomfortable, Behavior is anxious. Pain: Denies pain. cp4 EENT: No signs and/or symptoms were reported regarding the EENT system. 04/30 00:22 Neuro: Level of Consciousness is awake, alert, obeys commands, Oriented to person, cp4 place. Cardiovascular: Patient's skin is warm and dry. Respiratory: Airway is patent Respiratory effort is even, unlabored. GI: Abdomen is round non-distended, Bowel sounds present X 4 quads. : Parent/caregiver report the patient having inability to void. Derm: No signs and/or symptoms reported regarding the dermatologic system. Musculoskeletal: No signs and/or symptoms reported regarding the musculoskeletal system. Historical: - Allergies: 04/29 23:55 No Known Allergies; cp4 - Immunization history:: Adult Immunizations up to date. - Infectious Disease History:: Denies. - Social history:: Smoking status: Patient reports the use of cigarette tobacco products, smokes one-half pack cigarettes per day. Screenin/07 00:24 [facility] ED Fall Risk Assessment (Adult) History of falling in the last 3 months, cp4 including since admission No falls in past 3 months (0 pts) Confusion or Disorientation Yes (5 pts) Intoxicated or Sedated No (0 pts) Impaired Gait No (0 pts) Mobility Assist Device Used No (0 pt) Altered Elimination Yes (1 pt) Score/Fall Risk Level 3 or more points = High Risk Oriented to surroundings, Maintained a safe environment, Assessed \\T\\ reinforced patient's understanding of fall precautions, Hourly rounding (assess needs \\T\\ fall precautionary measures) done, Used ambulatory aids as needed (educated on \\T\\ assisted with). Abuse screen: Denies threats or abuse. Nutritional screening: No deficits noted. Tuberculosis screening: No symptoms or risk factors identified. Assessment: 00:24 Reassessment: No changes from previously documented assessment. cp4 Vital Signs: 04/29 23:52 BP 127 / 82; Pulse 119; Resp 18; Temp 99.1; Pulse Ox 92% on R/A; Pain 0/10; cp4 04/30 00:26 BP 138 / 107; Pulse 113; Resp 18; Temp 99.1; Pulse Ox 92% ; Pain 0/10; cp4 01:30 BP 129 / 94; Pulse 105; Resp 20; Pulse Ox 94% ; cp4 01:38 BP 129 / 94; Pulse 103; ec2 02:30 BP 116 / 87; Pulse 106; Resp 20; Pulse Ox 94% ; cp4 03:30 BP 114 / 72; Pulse 91; Resp 17 S; Pulse Ox 95% on 3 lpm NC; ha1 04/29 23:52 Pain Scale: Adult cp4 04/30 00:26 Pain Scale: Adult cp4 NIH Stroke Scale Scores: 04/29 23:56 NIHSS Score: 0 cp4 ED Course: 23:52 Patient arrived in ED. cp4 23:52 Cory Motley MD is Attending Physician. ec2 23:52 Joan Andrade is Primary Nurse. cp4 23:55 Triage completed. cp4 04/30 00:22 SARS RAPID Sent. cp4 00:22 Influenza Screen (a \\T\\ B) Sent. cp4 00:22 Arm band placed on right wrist. Patient placed in an exam room, on a stretcher. cp4 00:24 No provider procedures requiring assistance completed. Maintain EMS IV. Dressing cp4 intact. Good blood return noted. Site clean \\T\\ dry. Gauge \\T\\ site: 20 G RFA. Flushed with 10 mL NS. 00:24 Placed in gown. Bed in low position. Call light in reach. Side rails up X2. cp4 00:26 EKG done, by life support technician. af3 00:40 Smith cath inserted, using sterile technique, 16 Fr., by me, balloon inflated, to cp4 gravity drainage. 00:59 Chest Single View XRAY In Process Unspecified. EDMS 01:27 Vignesh Cardenas MD is Hospitalizing Provider. ec2 03:43 Patient admitted, IV remains in place. ha1 03:43 Provided Education on: need for admit . ha1 Administered Medications: 00:41 Drug: AZITHromycin IVPB 500 mg IVPB once over 1 hrs; (mix in 250 mL NS) Route: IVPB; cp4 Infused Over: 1 hrs; Site: right antecubital; 01:45 Follow up: IV Status: Completed infusion cp4 00:41 Drug: NS 0.9% IV 1000 ml IV at 1 bolus Per protocol; 1000 mL bolus Route: IV; Rate: 1 cp4 bolus; Site: right forearm; :45 Follow up: IV Status: Completed infusion cp4 00:41 Drug: Acetaminophen PO 1000 mg PO once Route: PO; cp4 01:05 Follow up: Response: No adverse reaction cp4 00:42 Drug: Rocephin IV 1 grams IV at calculated rate once; Given slow IV push per pharmacy cp4 instructions Route: IV; Rate: calculated rate; Site: right forearm; 01:03 Follow up: Response: No adverse reaction; IV Status: Completed infusion cp4 01:02 Drug: diphenhydrAMINE IVP 50 mg IVP once Route: IVP; Site: left antecubital; cp4 02:13 Follow up: Response: No adverse reaction cp4 02:21 Drug: Diazepam IVP 5 mg IVP once Route: IVP; Site: right forearm; cp4 03:10 Follow up: Response: No adverse reaction cp4 02:45 Drug: Haloperidol IVP 5 mg IVP once Route: IVP; Site: right forearm; cp4 03:00 Follow up: Response: No adverse reaction; Marked relief of symptoms ha1 Medication: 00:24 VIS not applicable for this client. cp4 Intake: 01:26 PO: 0ml; Total: 0ml. cp4 Output: 01:26 Urine: 1800ml (Smith); Total: 1800ml. cp4 Outcome: 01:27 Decision to Hospitalize by Provider. ec2 03:42 Admitted to Tele accompanied by tech, via stretcher, room 431, with oxygen, ha1 03:42 Condition: stable 03:42 Instructed on the need for admit, Demonstrated understanding of instructions, 03:43 Patient left the ED. ha1 NIH Stroke Scale - NIH Stroke Score Date: 04/29/2024 Time: 23:56 Total Score = 0 10. Dysarthria (speech clarity - read or repeat words) - 0(Normal) 11. Extinction and Inattention (visual/tactile/auditory/spatial/personal) - 0(No abnormality) 1a. Level of Consciousness (LOC) - 0(Alert) 1b. Level of Consciousness (LOC) (Month \\T\\ Age) - 0(Both) 1c. LOC Commands (Open \\T\\ Closes Eyes/Regional Sales Representative) - 0(Both) 2. Best Gaze (Lateral Gaze Paresis) - 0(Normal) 3. Visual Field Loss - 0(No visual loss) 4. Facial Palsy - 0(Normal) 5a. Left Arm: Motor (10-second hold) - 0(No drift) 5b. Right Arm: Motor (10-second hold) - 0(No drift) 6a. Left Leg: Motor (5-second hold - always test supine) - 0(No drift) 6b. Right Leg: Motor (5-second hold - always test supine) - 0(No drift) 7. Limb Ataxia (finger/nose \\T\\ heel/monroy - test with eyes open) - 0(Absent) 8. Sensory Loss (pinprick arms/legs/face) - 0(Normal) 9. Best Language: Aphasia (description/naming/reading) - 0(No aphasia) Initials: cp4 Signatures: Dispatcher [employer] Eve Aparicio RN RN ha1 Cory Motley MD MD ec2 Joan Andrade cp4 Janett Wilkerson af3 Corrections: (The following items were deleted from the chart) 04/29 23:56 23:55 PMHx: herniated discs; cp4 cp4 23:56 23:55 PMHx: COPD; cp4 cp4 23:56 23:55 PMHx: DDD; cp4 cp4 23:56 23:55 PMHx: "bladder stone"; cp4 cp4 23:56 23:55 PMHx: prostate problems; cp4 cp4 23:56 23:55 PSHx: knee sx; cp4 cp4
[2024-04-30] MEDS ORDERED: ACETAMINOPHEN 325 MG TABLET PO PRN (02:12)
[2024-04-30] MEDS ORDERED: ONDANSETRON 4 MG/2 ML VIAL IV PRN (02:12)
[2024-04-30] MEDS ORDERED: DIAZEPAM 10 MG/2 ML INJ SYRINGE ONE (02:18)
--- NOTE | 2024-04-30 02:18 | P.HP ---
Certification for Inpatient Patient admitted to: Inpatient With expected LOS: >2 Midnights Practitioner: I am a practitioner with admitting privileges, knowledge of patient current condition, hospital course, and medical plan of care. Services: Services provided to patient in accordance with Admission requirements found in Title 42 Section 412.3 of the Code of Federal Regulations Patient History Date of Service: 04/30/24 Reason for admission: AMS History of Present Illness: 74-year-old male with past medical history of COPD, degenerative disc disease, herniated discs, BPH , history of recurrent UTI, who was recently been admitted to the hospital and was discharged home with acute cystitis and was discharged home on antibiotics brought back to ER with altered mental status. Patient is a poor historian hence most of the history is obtained from the chart review and talking to the ER MD and family member. Patient has been progressively getting worse and has been more confused and altered than baseline. Associated with cough. Denies any nausea vomiting or diarrhea. No fever or chills. Patient was assessed in the ER and was noted to have leukocytosis, hyponatremia and acute renal insufficiency with dehydration and was admitted for further management along with UTI Allergies No Known Allergies Allergy (Verified 06/19/22 00:01) Home medications list reviewed: Yes Home Medications: Ascorbic Acid [Vitamin C*] 1,000 mg PO TID 07/22/20 Aspirin 1 tab PO DAILY 07/22/20 Atorvastatin Calcium [Lipitor*] 1 tab PO BEDTIME 07/22/20 Cholecalciferol (Vitamin D3) [Vitamin D3] 25 mcg PO DAILY 07/22/20 Cranberry 500 mg PO DAILY 07/22/20 Folic Acid 0.4 mg PO DAILY 07/22/20 L.acidoph,Paracasei, B.lactis [Probiotic] 1 cap PO DAILY 07/22/20 Saw [place] 1 cap PO DAILY 07/22/20 Sertraline [Zoloft*] 1 tab PO DAILY 07/22/20 Zinc 1 tab PO DAILY 07/22/20 Albuterol Sulfate [Albuterol Sulfate Hfa] 2 inhaler IH Q4H PRN 06/12/22 Finasteride 5 mg PO DAILY 06/12/22 Tamsulosin [Flomax*] 0.4 mg PO DAILY 06/12/22 traMADol HCL [Ultram*] 50 mg PO Q6H PRN 15 Days #25 tab 04/28/24 - Past Medical/Surgical History Diabetic: No Past Medical History: Reviewed- Non-Contributory -: COPD -: Back pain -: Anxiety -: Hypertension -: Tobacco abuse -: Recurrent UTI -: Large left inguinal hernia Past Surgical History: Reviewed- Non-Contributory -: Right knee surgery Psychosocial/ Personal History: The patient is . Lives at home with his daughter. - Family History Mother -: Cancer Father -: Heart disease, Lung disease - Social History Smoking Status: Current some day smoker Alcohol use: No CD- Drugs: No Caffeine use: Yes Review of Systems is unable to be obtained Physical Examination - Vital Signs Temperature: 98 F Blood Pressure: 126/74 Pulse: 88 Respirations: 18 Pulse Ox (%): 94 - Physical Exam General: Alert, Oriented x1, Mild distress, Confused HEENT: Atraumatic, Normocephalic Neck: Supple Respiratory: Diminished, Expiratory wheezes Cardiovascular: No edema, Regular rate/rhythm, Normal S1 S2 Capillary refill: <2 Seconds Gastrointestinal: Soft and benign, W/out hepatosplenomegaly Musculoskeletal: No clubbing, No swelling Integumentary: No rashes Neurological: Other (Confused ,Moves all limbs ) Lymphatics: No axilla or inguinal lymphadenopathy - Studies Laboratory Data (last 24 hrs) 04/30/24 04/30/24 04/30/24 00:15 00:15 00:15 WBC 16.60 H Hgb 11.6 L Hct 35.6 L Plt Count 284 PT 14.2 H INR 1.28 APTT 27.9 Sodium 134 L Potassium 3.6 BUN 25 H Creatinine 1.77 H Glucose 102 Total Bilirubin 0.4 AST 11 L ALT 31 Alkaline Phosphatase 129 H Microbiology Data (last 24 hrs): 04/30/24 00:10 Nasopharnyx Influenza Type A Antigen Screen - Final 04/30/24 00:10 Nasopharnyx Influenza Type B Antigen Screen - Final Assessment and Plan - Plan Acute encephalopathy metabolic/UTI Monitor closely on telemetry No focal weakness Monitor neuro vital signs closely Supportive management UTI Was started on Rocephin in ER Recent culture was showing ESBL and Proteus Will change to meropenem COPD not in exacerbation Continue home medications and titrate as needed Bronchodilators as needed Hypertension Antihypertensives titrated Continue home medications and titrate as needed Mild hyponatremia Acute renal insufficiency IV hydration Monitor renal parameters Electrolytes monitor and replace accordingly GI/DVT prophylaxis Advanced directive full code Discharge Plan: Home Plan to discharge in: 48 Hours - Advance Directives Does patient have a Living Will: No Does patient have a Durable POA for Healthcare: No - Code Status/Comfort Care Code Status: Full Code Time Spent Managing Pts Care (In Minutes): 48
[2024-04-30] MEDS ORDERED: HALOPERIDOL LACT 5 MG/ML INJ ONE (02:41)
[2024-04-30] MEDS: NA CHLORIDE 0.9% 1,000 ML IV SCH (04:01)
[2024-04-30 04:30] VITALS: BMI 20.7
--- NOTE | 2024-04-30 05:46 | RAD REPORT ---
EXAM DESCRIPTION: Chest Single View CLINICAL HISTORY: 4 years Male, Cough;COPD Comparison: None IMPRESSION: No focal lung consolidation. No pleural effusion. No pneumothorax. Cardiomediastinal silhouette is within normal limits. No acute osseous abnormality. Electronically signed by: Benny Washington DO 04/30/2024 01:03 AM CDT RP 9 Due to temporary technical issues with the PACS/new test company reporting system, reports are being chai d by the in-house radiologist without review as a courtesy to ensure prompt reporting the interpreting radiologist is fully responsible for the content of the report. Transcribed Date/Time: 04/30/2024 5:47 AM
[2024-04-30] MEDS: Meropenem 500 MG in NA CHLORIDE 0.9% 100 ML IV SCH ×2 (05:57→10:43)
[2024-04-30] MEDS: VITAMIN D 1000 UNIT TAB PO SCH (08:36)
[2024-04-30] MEDS: LACTOBACILLUS/ACIDOPHILUS TAB PO SCH (08:36)
[2024-04-30] MEDS: ASPIRIN 81 MG CHEWABLE TABLET PO SCH (08:37)
[2024-04-30] MEDS: FINASTERIDE 5 MG TAB PO SCH (08:37)
[2024-04-30] MEDS: ASCORBIC ACID 500 MG TABLET PO SCH (08:37)
[2024-04-30] MEDS: ZINC SULFATE 220 MG CAP PO SCH (08:37)
[2024-04-30] MEDS: FOLIC ACID 1 MG TABLET PO SCH (08:37)
[2024-04-30] MEDS: ENOXAPARIN 40 MG/0.4 ML SQ SCH (08:37)
[2024-04-30] MEDS: CRANBERRY FRUIT EXTRACT 200 MG CAP PO SCH (08:37)
[2024-04-30] MEDS: SERTRALINE HCL 100 MG TAB PO SCH (08:37)
[2024-04-30] MEDS: TAMSULOSIN 0.4 MG SR CAP PO SCH (08:37)
[2024-04-30] MEDS ORDERED: CEFTRIAXONE 1,000 MG in NA CHLORIDE 0.9% 50 ML IVPB SCH (09:00)
--- NOTE | 2024-04-30 11:33 | P.PN ---
Date of Service: 04/30/24 Subjective Awake, some confusion, oriented to name only calm and cooperative no new complaints ROS 10 point ROS as noted above, otherwise negative Physical Exam General: Alert and Oriented x1,Confused HEENT: Atraumatic, Normocephalic Neck: Supple Respiratory: Diminished, Expiratory wheezes, on 4 L nasal cannula Cardiovascular: No edema, RRR, Normal S1 S2 Capillary refill: <2 Seconds Gastrointestinal: Soft and benign on palpation, positive bowel sounds, W/out hepatosplenomegaly Musculoskeletal: No clubbing, No swelling Integumentary: No rashes Neurological: Other (Confused) Vitals Reviewed Problem list Acute metabolic encephalopathy 2/2 UTI Sepsis 2/2 UTI COPD not in exacerbation Hypertension Mild hyponatremia Acute renal insufficiency Assessment and Plan Acute metabolic encephalopathy 2/2 UTI Monitor closely on telemetry No focal weakness Monitor neuro vital signs closely Supportive management Sepsis 2/2 UTI criteria: WBC 16.6, HR 119, UTI Was started on Rocephin in ER Recent culture was showing ESBL and Proteus Will change to meropenem Follow blood and urine culture COPD not in exacerbation Continue home medications and titrate as needed Bronchodilators as needed Hypertension Antihypertensives titrated Continue home medications and titrate as needed Mild hyponatremia Acute renal insufficiency IV hydration Monitor renal parameters Electrolytes monitor and replace accordingly DVT prophylaxis lovenox Advanced directive full code Discharge Plan: Home Plan to discharge in: 48 Hours <María Carmen - Last Filed: 04/30/24 11:22> Plan of care discussed with Kermit. Patient looks very confused. Sepsis with UTI ESBL Proteus. Antibiotics changed to IV meropenem, anticipating at least 7 days of treatment. Swallow evaluation. IV hydration. <maddi brown - Last Filed: 04/30/24 18:33>
--- NOTE | 2024-04-30 11:51 | EKG ---
Test Date: 2024-04-30 Test Time: 00:09:29 Cake Wrapper: AF MEASUREMENT RESULTS: Intervals: Rate: 112 MI: 144 QRSD: 130 QT: 350 QTc: 477 [place]: P: 72 MI: 144 QRS: 83 T: 72 INTERPRETIVE STATEMENTS: Sinus tachycardia Right atrial enlargement Right bundle branch block Abnormal ECG Compared to ECG 04/26/2024 15:45:34 Atrial abnormality now present Sinus rhythm no longer present Electronically Signed On 04-30-24 11:50:46 CDT by Ross Malave
[2024-04-30] MEDS: TRAMADOL HCL 50 MG TAB PO PRN (14:07)
[2024-04-30] MEDS: Meropenem 1,000 MG in NA CHLORIDE 0.9% 100 ML IV SCH (21:15)
[2024-04-30] MEDS: ENSURE ENLIVE 237 ML CAN PO SCH (21:16)
[2024-04-30] MEDS: ATORVASTATIN 10 MG TAB PO SCH (21:16)
[2024-05-01 07:01] LABS: Absolute Monocytes 0.8 K/uL (0.1-1.3); Absolute Neutrophil 10.9 K/uL (1.8-8.0); Basophils % 0.2 % (0-1.3); Eosinophils % 0.1 % (0-4.4); Hematocrit 32.8 % (39.6-49.0); Hemoglobin 10.5 g/dL (13.6-17.9); Lymphocytes % 7.9 % (15.3-44.8); MCH 28.8 pg (27.0-35.0); MCV 89.8 fL (80-100); MPV 8.6 fL (7.6-11.3); Monocytes % 6.3 % (3.3-12.3); Neutrophils % 85.5 % (41.7-73.7); Platelets 247 thou/uL (152-406); RBC Red Blood Cell Count 3.65 M/uL (4.33-5.43); Red Cell Distribution Width 13.6 % (12.1-15.2)
[2024-05-01 07:17] LABS: Albumin 2.1 g/dL (3.4-5.0); Albumin/Globulin Ratio 0.6 (1.1-1.8); Anion Gap 5.8 mEq/L (5.0-15.0); Bilirubin Total 0.4 mg/dL (0.2-1.0); Globulin 3.5 g/dL (2.3-3.5); Magnesium 1.9 mg/dL (1.6-2.4); Phosphorus 1.9 mg/dL (2.5-4.9); Potassium 3.8 mEq/L (3.5-5.1); Protein, Total 5.6 g/dL (6.4-8.2)
[2024-05-01] MEDS: POTASSIUM CL SA 10 MEQ TAB PO ONE (08:39)
[2024-05-01] MEDS: POTASS/SODIUM PHOSPHATE 1 PKT POWD.PACK PO SCH (08:39)
[2024-05-01 09:47] LABS: White Blood Cell Scan OK (OK)
[2024-05-01 09:48] LABS: Blood Morphology Comment NOT SEEN (NOT SEEN); Platelet Estimate ADEQ
[2024-05-01] MEDS: ALBUTEROL 2.5 MG/3 ML NEB SOL NEB PRN (11:00)
--- NOTE | 2024-05-01 13:07 | P.PN ---
Date of Service: 05/01/24 Subjective Awake, oriented x 3 today Symptoms improved ROS 10 point ROS as noted above, otherwise negative Physical Exam General: Alert and Oriented x3 HEENT: Atraumatic, Normocephalic Neck: Supple Respiratory: Diminished, Expiratory wheezes, on 4 L nasal cannula Cardiovascular: No edema, RRR, Normal S1 S2 Capillary refill: <2 Seconds Gastrointestinal: Soft and benign on palpation, positive bowel sounds Musculoskeletal: No clubbing, No swelling Integumentary: No rashes Neurological: A/O x 3, non focal exam Vitals Reviewed Problem list Acute metabolic encephalopathy 2/2 UTI Sepsis 2/2 UTI COPD not in exacerbation Hypertension Mild hyponatremia Acute renal insufficiency Plan Acute metabolic encephalopathy 2/2 UTI No focal weakness Monitor neurochecks Supportive management Improving Sepsis 2/2 UTI Was started on Rocephin in ER Recent culture was showing ESBL Proteus Started on merrem 04/30 Consult ID Follow blood and urine culture COPD not in exacerbation Continue home medications and titrate as needed Bronchodilators as needed Hypertension Antihypertensives titrated Continue home medications and titrate as needed Mild hyponatremia Acute renal insufficiency IV hydration Monitor renal parameters Electrolytes monitor and replace accordingly DVT prophylaxis lovenox Advanced directive full code Discharge Plan: Home Plan to discharge in: 48 Hours <Alberto Cummins - Last Filed: 05/01/24 13:04> Patient case discussed with L[employer] K[employer] AND RECAUSTICIZING OPERATOR Placido. He had 2 ~3 second runs of Afib, which is new for patient. These did occur ~2 hours after receiving albuterol nebulizer. - 1st/only dose this hospitalization will discontinue and monitor. He is on his home SSRI that carries some risk, but is a chronic med and will continue. obtain ekg replete electrolytes Mg 1.9, will give additional 1g IV Mg <William Aceves - Last Filed: 05/01/24 14:49>
[2024-05-01] MEDS: MAGNESIUM SULFATE 1 gm IVPB 1 GM/100 ML BAG IV ONE (15:25)
[2024-05-02 07:00] LABS: Hematocrit 34.5 % (39.6-49.0); Hemoglobin 10.8 g/dL (13.6-17.9); MCH 28.2 pg (27.0-35.0); MCHC 31.4 g/dL (32.0-36.0); MCV 89.8 fL (80-100); MPV 8.8 fL (7.6-11.3); Platelets 268 thou/uL (152-406); RBC Red Blood Cell Count 3.84 M/uL (4.33-5.43); Red Cell Distribution Width 13.5 % (12.1-15.2)
[2024-05-02 07:12] LABS: Anion Gap 9.7 mEq/L (5.0-15.0); Magnesium 1.9 mg/dL (1.6-2.4); Phosphorus 2.2 mg/dL (2.5-4.9); Potassium 3.7 mEq/L (3.5-5.1); Thyroid Stimulating Hormone 1.34 uIU/mL (0.358-3.740)
[2024-05-02] MEDS: POTASSIUM CL SA 10 MEQ TAB PO ONE (08:44)
[2024-05-02] MEDS: POTASS/SODIUM PHOSPHATE 1 PKT POWD.PACK PO SCH (08:47)
--- NOTE | 2024-05-02 13:01 | P.CNS ---
Date of Consult: 05/02/24 Chief Complaint: AMS History of Present Illness: Patient presented with AMS, found to have urosepsis and UTI, cardiology was consulted for questionable AF, patient denies any chest pain, no palpitations, no SOB, no [place], no syncope. Allergies No Known Allergies Allergy (Verified 06/19/22 00:01) Home medications list reviewed: Yes Home Medications: Ascorbic Acid [Vitamin C*] 1,000 mg PO TID 07/22/20 Aspirin 1 tab PO DAILY 07/22/20 Atorvastatin Calcium [Lipitor*] 1 tab PO BEDTIME 07/22/20 Cholecalciferol (Vitamin D3) [Vitamin D3] 25 mcg PO DAILY 07/22/20 Cranberry 500 mg PO DAILY 07/22/20 Folic Acid 0.4 mg PO DAILY 07/22/20 L.acidoph,Paracasei, B.lactis [Probiotic] 1 cap PO DAILY 07/22/20 Saw [place] 1 cap PO DAILY 07/22/20 Sertraline [Zoloft*] 1 tab PO DAILY 07/22/20 Zinc 1 tab PO DAILY 07/22/20 Albuterol Sulfate [Albuterol Sulfate Hfa] 2 inhaler IH Q4H PRN 06/12/22 Finasteride 5 mg PO DAILY 06/12/22 Tamsulosin [Flomax*] 0.4 mg PO DAILY 06/12/22 traMADol HCL [Ultram*] 50 mg PO Q6H PRN 15 Days #25 tab 04/28/24 - Past Medical/Surgical History Diabetic: No -: COPD -: Back pain -: Anxiety -: Hypertension -: Tobacco abuse -: Recurrent UTI -: Large left inguinal hernia -: Right knee surgery Psychosocial/ Personal History: The patient is . Lives at home with his daughter. - Family History Mother Medical History: Cancer Father Medical History: Heart disease, Lung disease - Social History Smoking Status: Former smoker Alcohol use: No CD- Drugs: No Caffeine use: Yes Place of Residence: Home Review of Systems 10-point ROS is otherwise unremarkable Physical Examination Temp Pulse Resp BP Pulse Ox 98.3 F 110 H 20 185/111 H 94 05/02/24 12:00 05/02/24 12:00 05/02/24 12:00 05/02/24 12:00 05/02/24 12:00 General: Alert, In no apparent distress HEENT: Atraumatic, PERRLA, Mucous membr. moist/pink, EOMI, Sclerae nonicteric Neck: Supple, 2+ carotid pulse no bruit, No LAD, Without JVD or thyroid abnormality Respiratory: Clear to auscultation bilaterally, Normal air movement Cardiovascular: Regular rate/rhythm, Normal S1 S2 Gastrointestinal: Normal bowel sounds, No tenderness Musculoskeletal: No tenderness Integumentary: No rashes Neurological: Normal gait, Normal speech, Normal tone, Normal affect Lymphatics: No axilla or inguinal lymphadenopathy - Problems (1) Sinus tachycardia Current Visit: Yes Status: Acute Plan: Tele was reviewed and lot of artifact was seen but hard to recognize AF. start patient on Lopressor 25 mg po BID start ASA 81 mg daily Continue to monitor on tele. if discharged then outpatient follow up with cardiology for event monitor. (2) PVC (premature ventricular contraction) Current Visit: Yes Status: Acute Plan: start BB as above. Echo shows normal EF. outpatient stress test. (3) Hypertension Current Visit: No Status: Chronic Plan: start lopressor 25 mg po BID Qualifiers: Hypertension type: primary hypertension Qualified Code(s): I10 - Essential (primary) hypertension
[2024-05-02] MEDS: GABAPENTIN 100 MG CAP PO SCH (13:44)
--- NOTE | 2024-05-02 13:50 | P.PN ---
Date of Service: 05/02/24 Subjective Awake, oriented x 3 today Symptoms improved had bouts of tachycardia overnight, questionable afib but lots of artifact on te le ROS 10 point ROS as noted above, otherwise negative Physical Exam General: Alert and Oriented x3 HEENT: Atraumatic, Normocephalic Neck: Supple Respiratory: Diminished, Expiratory wheezes, on 4 L nasal cannula Cardiovascular: No edema, RRR, Normal S1 S2 Capillary refill: <2 Seconds Gastrointestinal: Soft and benign on palpation, positive bowel sounds Musculoskeletal: No clubbing, No swelling Integumentary: No rashes Neurological: A/O x 3, non focal exam Vitals Reviewed Problem list Acute metabolic encephalopathy 2/2 UTI Tachycardia-Possible paroxysmal afib Sepsis 2/2 UTI Urinary retention COPD not in exacerbation Hypertension Mild hyponatremia Acute renal insufficiency Plan Acute metabolic encephalopathy 2/2 UTI No focal weakness Monitor neurochecks Supportive management Improving Tachycardia-Possible paroxysmal afib Seen by cardiology who reviewed tele No definite afib start Toprol tartrate 25 mg twice daily and daily aspirin Continue to monitor on telemetry Sepsis 2/2 UTI Was started on Rocephin in ER Recent culture was showing ESBL Proteus Started on merrem 04/30 Consult ID Follow blood and urine culture Urinary retention Smith catheter during recent admission which was discontinued at discharge Patient reports he was able to void freely at home Admitted with altered mental status, Smith catheter again placed Attempted to discontinue 05/01 but still having retention Straight cathed overnight x 1 Will try straight cath 1 more time for urinary retention, if still retaining will need Smith COPD not in exacerbation Continue home medications and titrate as needed Bronchodilators as needed Hypertension Antihypertensives titrated Continue home medications and titrate as needed Mild hyponatremia Acute renal insufficiency IV hydration Monitor renal parameters Electrolytes monitor and replace accordingly DVT prophylaxis lovenox Advanced directive full code Discharge Plan: Home Plan to discharge in: 48 Hours
--- NOTE | 2024-05-02 13:51 | CON ---
History Of Present Illness: This is a 74-year-old male. I was consulted for urinary tract infection. The patient has significant past medical history of COPD, back pain, anxiety, hypertension, tobacco abuse, recurrent urinary tract infection, enlarged prostate, large left inguinal hernia, and scrotal edema. Patient, as per nurse, has been having urinary retention. I am consulted for ESBL urinary tract infection. Currently, he is getting IV meropenem. Urine cultures from 04/26, grew Proteus mirabilis, ESBL. Past Medical History: As per HPI. Social History: Tobacco positive. Alcohol negative. Family History: Noncontributory. Medications: Meropenem. See MARs for other medications. Allergies: NO KNOWN DRUG ALLERGIES. Review of Systems: A 10-point review was performed. Physical Examination: General: This is a 74-year-old male, sitting in wheelchair, not in any acute cardiopulmonary distress. Vital Signs: Temperature 98, pulse 110, respirations 20, blood pressure 185/111. HEENT: Unremarkable. Neck: Supple. Lungs: Basal crackles. Heart: S1, S2. Regular. Abdomen: Soft, nontender. Bowel sounds present. Extremity: No edema. Muscle wasting noted. Laboratory Data: WBC 12.5 down from 16.6, hemoglobin 10.8, platelets are 268. Chemistry shows BUN of 14, creatinine 0.4. Assessment And Plan: Urosepsis secondary to Proteus mirabilis extended-spectrum beta-lactamase infection. Continue IV meropenem Invanz for 7 days. Monitor CBC and BMP twice a week while the patient is on antibiotic. Consider evaluation by urologist for prostate enlargement to prevent recurrent urinary tract infection. Monitor WBC and fever trends for infection, leukocytosis, anemia of chronic disease. We will follow the patient as needed. NF/MODL Voice ID: [id number] Report ID: [id number] GIANNI
[2024-05-02] MEDS: HYDROCODONE/APAP 5/325 MG TAB PO PRN (13:53)
--- NOTE | 2024-05-02 14:36 | ECHO ---
HEIGHT: 5 ft 8 in WEIGHT: 136 lb 0 oz DATE OF STUDY: 05/02/[address]: Alberto Cummins NP 2-DIMENSIONAL: YES M.MODE: YES DOPPLER: YES COLOR FLOW: YES TDS: PORTABLE: YES DEFINITY: BUBBLE STUDY: DIAGNOSIS: NEW ONSET ATRIAL FIBRILLATION CARDIAC HISTORY: CATHERIZATION: SURGERY: PROSTHETIC VALVE: PACEMAKER: MEASUREMENTS (cm) DIASTOLIC (NORMALS) SYSTOLIC (NORMALS) IVSd 1.0 (0.6-1.2) LA Diam 2.9 (1.9-4.0) LVEF 60-65% LVIDd 4.0 (3.5-5.7) LVIDs 2.7 (2.0-3.5) %FS 31% LVPWd 1.1 (0.6-1.2) Ao Diam 3.1 (2.0-3.7) 2 DIMENSIONAL ASSESSMENT: RIGHT ATRIUM: NORMAL LEFT ATRIUM: NORMAL RIGHT VENTRICLE: NORMAL LEFT VENTRICLE: NORMAL TRICUSPID VALVE: TRACE TRICUSPID REGURGITATION MITRAL VALVE: MILD MITRAL REGURGITATION PULMONIC VALVE: NORMAL AORTIC VALVE: NORMAL PERICARDIAL EFFUSION: SMALL CIRCUMFRENTIAL AORTIC ROOT: NORMAL LEFT VENTRICULAR WALL MOTION: NORMAL DOPPLER/COLOR FLOW: NORMAL COMMENTS: 1. NORMAL LEFT VENTRICULAR SYSTOLIC FUNCTION, EJECTION FRACTION 60-65%, NORMAL WALL MOTION 2. NORMAL DIASTOLIC FUNCTION 3. NORMAL FILLING PRESSURE TECHNOLOGIST: LUCIO STARR
[2024-05-02] MEDS: Meropenem 1,000 MG in NA CHLORIDE 0.9% 100 ML IV SCH (18:29)
[2024-05-02] MEDS: METOPROLOL TAR 25 MG TAB PO SCH (18:31)
[2024-05-02] MEDS: TAMSULOSIN 0.4 MG SR CAP PO SCH (20:03)
[2024-05-02 21:39] VITALS: O2SAT 93
[2024-05-03 06:34] LABS: Hemoglobin 11.2 g/dL (13.6-17.9); MCH 29.1 pg (27.0-35.0); MCV 88.1 fL (80-100); MPV 8.1 fL (7.6-11.3); Platelets 268 thou/uL (152-406); RBC Red Blood Cell Count 3.86 M/uL (4.33-5.43); Red Cell Distribution Width 13.6 % (12.1-15.2)
[2024-05-03 06:49] LABS: Anion Gap 7.6 mEq/L (5.0-15.0); Phosphorus 2.5 mg/dL (2.5-4.9); Potassium 3.6 mEq/L (3.5-5.1)
[2024-05-03] MEDS: POTASSIUM 25 MEQ EFFERV TAB PO ONE (08:24)
--- NOTE | 2024-05-03 14:33 | P.PN ---
Date of Service: 05/03/24 Subjective Awake, oriented x 3 today With urinary retention today, Smith catheter to be placed ROS 10 point ROS as noted above, otherwise negative Physical Exam General: Alert and Oriented x3 HEENT: Atraumatic, Normocephalic Neck: Supple Respiratory: Diminished, Expiratory wheezes, on 4 L nasal cannula Cardiovascular: No edema, RRR, Normal S1 S2 Capillary refill: <2 Seconds Gastrointestinal: Soft and benign on palpation, positive bowel sounds Musculoskeletal: No clubbing, No swelling Integumentary: No rashes Neurological: A/O x 3, non focal exam Vitals Reviewed Problem list Acute metabolic encephalopathy 2/2 UTI Tachycardia-Possible paroxysmal afib Sepsis 2/2 UTI Urinary retention COPD not in exacerbation Hypertension Mild hyponatremia Acute renal insufficiency Plan Acute metabolic encephalopathy 2/2 UTI Mental status improving PT evaluation ordered and pending Tachycardia-Possible paroxysmal afib Seen by cardiology who reviewed tele No definite afib start metoprolol tartrate 25 mg twice daily and daily aspirin Continue to monitor on telemetry Sepsis 2/2 UTI Was started on Rocephin in ER Recent culture was showing ESBL Proteus Started on merrem 04/30 Consult ID Will need total of 7 days of IV Merrem day 05/07 Urinary retention Smith catheter during recent admission which was discontinued at discharge Patient reports he was able to void freely at home Admitted with altered mental status, Smith catheter again placed Attempted to discontinue 05/01 but still having retention Smith catheter ordered to be placed today and will need to remain in place COPD not in exacerbation Continue home medications and titrate as needed Bronchodilators as needed Hypertension Antihypertensives titrated Continue home medications and titrate as needed Mild hyponatremia Acute renal insufficiency IV hydration Monitor renal parameters Electrolytes monitor and replace accordingly DVT prophylaxis lovenox Advanced directive full code Discharge Plan: Home Plan to discharge in: 48 Hours
[2024-05-03] MEDS: HYDROCODONE/APAP 7.5/325 MG TAB PO PRN (15:40)
--- NOTE | 2024-05-03 16:57 | EKG ---
Test Date: 2024-05-01 Test Time: 21:35:08 Crane Rigger: ANY MEASUREMENT RESULTS: Intervals: Rate: 107 [place]: 142 QRSD: 120 QT: 370 QTc: 493 [place]: P: 79 [place]: 142 QRS: 79 T: 71 INTERPRETIVE STATEMENTS: Sinus tachycardia Right bundle branch block Abnormal ECG Compared to ECG 05/01/2024 15:03:11 No significant changes Electronically Signed On 05-03-24 16:51:36 CDT by Juan Mendoza
--- NOTE | 2024-05-03 16:59 | EKG ---
Test Date: 2024-05-01 Test Time: 15:03:11 Coil Winder Strap: GILDARDO MEASUREMENT RESULTS: Intervals: Rate: 106 [place]: 140 QRSD: 120 QT: 362 QTc: 480 [place]: P: 63 CO: 140 QRS: 81 T: 68 INTERPRETIVE STATEMENTS: Sinus tachycardia Right bundle branch block Abnormal ECG Compared to ECG 04/30/2024 00:09:29 Atrial abnormality no longer present Electronically Signed On 05-03-24 16:51:54 CDT by Juan Mendoza
--- NOTE | 2024-05-03 17:54 | PN ---
Subjective: The patient is lying in bed. No new acute event. Chart reviewed. Objective: Vital signs: Reviewed. Lungs: Basal crackles. Heart: S1, S2. Regular. Abdomen: Soft, nontender. Bowel sounds present. Extremities: No edema. : Scrotal swelling or edema noted. Laboratory Data: Shows WBC 11.6, hemoglobin 11.2, platelets are 268. Chemistry shows BUN of 19, cre atinine 0.4. Urine cultures are growing strep species in the urine. Current Medications: Include meropenem. See MARs for other medications. Assessment/plan: Urinary tract infection in a patient with BPH. Continue antibiotic for 7 days as p evin has history of ESBL. We will follow the patient as needed. NF/MODL Voice ID: [id number] Report ID: [id number]
[2024-05-04 05:55] LABS: Hematocrit 32.9 % (39.6-49.0); Hemoglobin 11.1 g/dL (13.6-17.9); MCH 29.5 pg (27.0-35.0); MCHC 33.7 g/dL (32.0-36.0); MCV 87.6 fL (80-100); MPV 7.7 fL (7.6-11.3); Platelets 311 thou/uL (152-406); RBC Red Blood Cell Count 3.76 M/uL (4.33-5.43); Red Cell Distribution Width 13.3 % (12.1-15.2)
[2024-05-04 06:09] LABS: Anion Gap 6.1 mEq/L (5.0-15.0); Magnesium 2.1 mg/dL (1.6-2.4); Phosphorus 3.1 mg/dL (2.5-4.9); Potassium 4.1 mEq/L (3.5-5.1)
[2024-05-04] MEDS ORDERED: ERTAPENEM SODIUM 1 GM VIAL IVPB ONE (13:45)
[2024-05-04] MEDS: ERTAPENEM NA 1 GM in NA CHLORIDE 0.9% 100 ML IVPB SCH (15:18)
[2024-05-04 15:57] VITALS: BP 138/80; TEMP 98.1
--- NOTE | 2024-05-04 16:00 | P.DS ---
Admission Date: 04/30/24 Discharge Date: 05/04/24 Disposition: DC HOME/HOME HEALTH CARE Reason for Admission: AMS Brief History of Present Illness: 74-year-old male with past medical history of COPD, degenerative disc disease, herniated discs, BPH , history of recurrent UTI, who was recently been admitted to the hospital and was discharged home with acute cystitis and was discharged home on antibiotics brought back to ER with altered mental status. Patient is a poor historian hence most of the history is obtained from the chart review and talking to the ER MD and family member. Patient has been progressively getting worse and has been more confused and altered than baseline. Associated with cough. Denies any nausea vomiting or diarrhea. No fever or chills. Patient was assessed in the ER and was noted to have leukocytosis, hyponatremia and acute renal insufficiency with dehydration and was admitted for further management along with UTI Hospital Course: Problem list Acute metabolic encephalopathy 2/2 UTI Tachycardia-Possible paroxysmal afib Sepsis 2/2 UTI Urinary retention COPD not in exacerbation Hypertension Mild hyponatremia Acute renal insufficiency Patient was admitted to the hospital initially on 04/26 to 04/28 for sepsis, UTI, T12 compression fracture. He was subsequently discharged on oral Cipro for his UTI as he had improved. He returned to the ER on 04/30 for altered mental status and was diagnosed with UTI and sepsis again. His previous culture was reviewed and ended up growing Proteus Mirabella's ESBL. He was started on IV meropenem o n admission on 04/30, first full day of Merrem was 05/01. He was seen by infectious disease recommended a 7-day course of IV Merrem/Invanz. His mental status improved and he is back at his baseline, he was dealing with significant back pain related to his recent T12 compression fracture which required oral hydrocodone and gabapentin to control his pain. Patient also deals with urinary retention, his family reports that this happens often specially when he is hospitalized. Smith catheter was inserted on admission to the hospital, attempted to remove Smith catheter with voiding trial but he was unsuccessful, attempted straight cath x 2 but was still retaining so Smith catheter was placed and will need to remain in at discharge until he can follow-up with urology. Patient is very weak and is requiring a lot of assistance from family and staff. Offered SNF versus inpatient rehab placement but patient declined stating that he want to go home. Family have seen him working with PT and what he is currently capable of and are okay with helping take care of him at home. Antibiotics with Invanz 1 g has been set up for the next 3 days after discharge at home as well as home health with senior living and physical therapy. Prescriptions for [place], gabapentin have been sent to his pharmacy [facility] in [place]. Please follow-up with your primary care doctor in 1 to 2 weeks Please also call Dr. Orozco the urologist office to schedule an appointment for the urinary retention, Smith catheter should remain in place until then. [facility] P:[phone] F:[phone] [place] [facility] [facility] [address], [place], [place] [address] Q/[place]on[place]: [phone] F Vital Signs/Physical Exam: Temp Pulse Resp BP Pulse Ox 98.1 F 92 H 20 138/80 93 05/04/24 15:56 05/04/24 15:56 05/04/24 15:56 05/04/24 15:56 05/04/24 15:56 General: Alert, In no apparent distress, Oriented x3 HEENT: Atraumatic, PERRLA Neck: Supple, JVD not distended Respiratory: Clear to auscultation bilaterally, Normal air movement Cardiovascular: Regular rate/rhythm, Normal S1 S2 Gastrointestinal: Normal bowel sounds, No tenderness Musculoskeletal: No tenderness Integumentary: No rashes Neurological: Normal speech, Normal tone, Normal affect Urinary: Smith catheter, Other (Large inguinal hernia) Laboratory Data at Discharge: WBC 10.70 thou/uL (4.3-10.9) 05/04/24 05:45 Hgb 11.1 g/dL (13.6-17.9) L 05/04/24 05:45 Hct 32.9 % (39.6-49.0) L 05/04/24 05:45 Plt Count 311 thou/uL (152-406) 05/04/24 05:45 PT 14.2 SECONDS (9.4-12.5) H 04/30/24 00:15 INR 1.28 04/30/24 00:15 APTT 27.9 SECONDS (24.3-36.9) 04/30/24 00:15 Sodium 139 mEq/L (136-145) 05/04/24 05:45 Potassium 4.1 mEq/L (3.5-5.1) D 05/04/24 05:45 BUN 21 mg/dL (7-18) H 05/04/24 05:45 Creatinine 0.48 mg/dL (0.70-1.30) L 05/04/24 05:45 Glucose 106 mg/dL (74-106) 05/04/24 05:45 Phosphorus 3.1 mg/dL (2.5-4.9) 05/04/24 05:45 Magnesium 2.1 mg/dL (1.6-2.4) 05/04/24 05:45 Total Bilirubin 0.4 mg/dL (0.2-1.0) 05/01/24 06:33 AST 12 U/L (15-37) L 05/01/24 06:33 ALT 24 U/L (16-61) 05/01/24 06:33 Alkaline Phosphatase 107 U/L (45-117) 05/01/24 06:33 Home Medications: Ascorbic Acid [Vitamin C*] 1,000 mg PO TID 07/22/20 Aspirin 1 tab PO DAILY 07/22/20 Atorvastatin Calcium [Lipitor*] 1 tab PO BEDTIME 07/22/20 Cholecalciferol (Vitamin D3) [Vitamin D3] 25 mcg PO DAILY 07/22/20 Cranberry 500 mg PO DAILY 07/22/20 Folic Acid 0.4 mg PO DAILY 07/22/20 L.acidoph,Paracasei, B.lactis [Probiotic] 1 cap PO DAILY 07/22/20 Saw [place] 1 cap PO DAILY 07/22/20 Sertraline [Zoloft*] 1 tab PO DAILY 07/22/20 Zinc 1 tab PO DAILY 07/22/20 Albuterol Sulfate [Albuterol Sulfate Hfa] 2 inhaler IH Q4H PRN 06/12/22 Finasteride 5 mg PO DAILY 06/12/22 Tamsulosin [Flomax*] 0.4 mg PO DAILY 06/12/22 Gabapentin 100 mg PO BID 30 Days #60 tab 05/04/24 Hydrocodone 7.5/APAP 325 [[place] 7.5/325 mg] 1 tab PO Q6H PRN #15 tab 05/04/24 New Medications: Gabapentin 100 mg PO BID 30 Days #60 tab Hydrocodone 7.5/APAP 325 [[place] 7.5/325 mg] 1 tab PO Q6H PRN #15 tab PRN Reason: Pain Physician Discharge Instructions: Patient was admitted to the hospital initially on 04/26 to 04/28 for sepsis, UTI, T12 compression fracture. He was subsequently discharged on oral Cipro for his UTI as he had improved. He returned to the ER on 04/30 for altered mental status and was diagnosed with UTI and sepsis again. His previous culture was reviewed and ended up growing Proteus Mirabella's ESBL. He was started on IV meropenem on admission on 04/30, first full day of Merrem was 05/01. He was seen by infectious disease recommended a 7-day course of IV Merrem/Invanz. His mental status improved and he is back at his baseline, he was dealing with significant back pain related to his recent T12 compression fracture which required oral hydrocodone and gabapentin to control his pain. Patient also deals with urinary retention, his family reports that this happens often specially when he is hospitalized. Smith catheter was inserted on admission to the hospital, attempted to remove Smith catheter with voiding trial but he was unsuccessful, attempted straight cath x 2 but was still retaining so Smith catheter was placed and will need to remain in at discharge until he can follow-up with urology. Patient is very weak and is requiring a lot of assistance from family and staff. Offered SNF versus inpatient rehab placement but patient declined stating that he want to go home. Family have seen him working with PT and what he is currently capable of and are okay with helping take care of him at home. Antibiotics with Invanz 1 g has been set up for the next 3 days after discharge at home as well as home health with senior living and physical therapy. Prescriptions for [place], gabapentin [facility] [place]. Please follow-up with your primary care doctor in 1 to 2 weeks Please also call Dr[address] Orozco the urologist office to schedule an appointment for the urinary retention, Smith catheter should remain in place until then. [facility] P:[phone] F:[phone] [place] [facility] [facility] [address], [place] [address] G/[place]: [phone] F Diet: Regular Activity: Fall precautions Followup: Landon Salgado MD [Primary Care Provider] - 1-2 Weeks Lauri Orozco [ACTIVE - CAN ADMIT] - 1-2 Weeks Time spent managing pt's care (in minutes): 45
== END 2024-05-04 17:42 | disposition home health service (06) | DRG 871 ==
LOC: ER 23:51 → 4TH 04-30 02:12
PROVIDERS: ADMIT Family Medicine; ATTEND Hospitalist
PROC: 0T9B70Z Drainage of Bladder with Drainage Device, Via Natural or Artificial Opening (ICD-10-PCS; principal; 2024-05-03)
DX: A41.59 Other Gram-negative sepsis (principal); G93.41 Metabolic encephalopathy; N39.0 Urinary tract infection, site not specified; E87.1 Hypo-osmolality and hyponatremia; Z16.12 Extended spectrum beta lactamase (ESBL) resistance; E86.0 Dehydration; N28.9 Disorder of kidney and ureter, unspecified; D63.8 Anemia in other chronic diseases classified elsewhere; J44.9 Chronic obstructive pulmonary disease, unspecified; I48.0 Paroxysmal atrial fibrillation; I49.3 Ventricular premature depolarization; N40.1 Benign prostatic hyperplasia with lower urinary tract symptoms; R33.8 Other retention of urine; F17.210 Nicotine dependence, cigarettes, uncomplicated; Z79.82 Long term (current) use of aspirin; Z11.52 Encounter for screening for COVID-19; Z79.899 Other long term (current) drug therapy
CPT/HCPCS: 36415; 51702; 71045; 80048; 80053; 81001; 82947; 83605; 83735; 84100; 84443; 85025; 85027; 85610; 85730; 87040; 87077; 87086; 87088; 87186; 87804; 87811; 92610; 93005; 93306; 94640; 97110; 97116; 97161; 97530; 99285; J0696; J1200; J1335; J1630; J1650; J2185; J3360; J3475; J7030; J7050; J7613